=== PATIENT | female | born 1965 | race African-American/Black ===

== ENCOUNTER 2022-11-23 10:10 | Inpatient (IN) | payer OTHER, SELFPAY ==
[2022-11-23] VITALS (10 sets, daily range): BP systolic 112–130; BP diastolic 74–90; PULSE 84–105; RESP 16–20; TEMP 36.2–36.7; O2SAT 97–100; BMI 42.0
--- NOTE | ~2022-11-23 | XR_ITS ---
EXAMINATION: XR chest 2V DATE: 11/23/2022 11:36 INDICATION: Chest pain. Shortness of breath. TECHNIQUE: Frontal and lateral views of the chest were obtained. COMPARISON: None. FINDINGS: Scott B lines are noted, consistent with mild pulmonary edema. No pleural effusion or pneu mothorax. Cardiomegaly is noted. IMPRESSION: 1. Mild pulmonary edema. 2. Cardiomegaly. Reviewed, dictated and finalized at location A.
--- NOTE | ~2022-11-23 | NM_ITS ---
EXAMINATION: NM corazon stress w perfusion DATE: 11/26/2022 11:07 INDICATION: Congestive heart failure and cardiomyopathy. Preoperative evaluation. TECHNIQUE: Rest images were obtained following intravenous administration of 10.6 mCi Tc99m tetrofosm in (Myoview). The patient was infused intravenously with Lexiscan (Regadenoson). Then, 34.8 mCi Tc99m tetrofosmin (Myoview) was administered intravenously, and stress images were obtained in supine and subsequently in prone positions. Data was reconstructed into short axis and horizontal and vertical l pratik axis SPECT images. Gated SPECT images were also obtained. COMPARISON: None. FINDINGS: There is a small mild fixed perfusion defect involving the apical, apical anterior and apic al septal segments. There is decreased activity along the inferior wall which is more prominent on th e rest than the stress images and which nearly normalizes on all but the mid inferior segments with p tuan imaging and would favor diaphragmatic attenuation artifact over infarct. No reversible ischemia. There is prominent left ventricular enlargement with calculated end-diastolic volume of 300 mL. The re is global hypokinesis with akinesis at the anteroapical segment. This results in a moderate to sev erely decreased left ventricular ejection fraction of 18%. IMPRESSION: 1. Moderate-sized mild fixed infarct at the apical, apical anterior and apical septal segments. No re versible ischemia. 2. Perfusion defect along the inferior wall worse on the rest and stress images and which nearly norm alizes with prone imaging favoring diaphragmatic attenuation artifact over small mild infarct at the mid inferior segment. 2. Marked left ventricular enlargement with moderate to severely decreased left ventricular ejection fraction measuring 18%. Reviewed, dictated and finalized at location A. IMPRESSION: 1. Moderate-sized mild fixed infarct at the apical, apical anterior and apical septal segments. No reversible ischemia. 2. Perfusion defect along the inferior wall worse on the rest and stress images and which nearly normalizes with prone imaging favoring diaphragmatic attenuat ion artifact over small mild infarct at the mid inferior segment. 2. Marked left ventricular enlargement with moderate to severely decreased left ventricular ejection fraction measuring 18%.
--- NOTE | ~2022-11-23 | MR_ITS ---
EXAMINATION: MR MRCP wo/w con/w 3D wo ind DATE: 11/24/2022 07:16 INDICATION: Right upper quadrant abdominal pain. TECHNIQUE: Magnetic resonance imaging (MRI) of the abdomen was performed without and with 20 mL Multi Eugenie intravenous contrast. Sequences included coronal T2-weighted FS FSE, coronal T2-weighted FSE, a xial T1-weighted LAVA, coronal FS FIESTA, axial dual-echo T1-weighted SPGR, coronal lava-FLEX, sagitt al T2-weighted FSE, axial T2-weighted FSE, and axial DWI. Thick-slab T2-weighted FSE images were obta ined for magnetic resonance cholangiopancreatography (MRCP). Maximum intensity projection 3-D reconst ructions of the volumetric data were created by the technologist. Postcontrast sequences included cor onal LAVA-flex and time course of axial T1-weighted LAVA. COMPARISON: Ultrasound 11/23/2022 FINDINGS: ABDOMEN MRI: Cardiomegaly is noted. No pericardial effusion. The liver and spleen are normal. The gal lbladder is normal in size and contains a gallstone. Gallbladder wall thickening is noted. The pancre as, adrenal glands, and kidneys are normal. There are no dilated loops of bowel. There is edema of th e intra-abdominal fat. There is mild bilateral hilar lymphadenopathy. ABDOMEN MRCP: The common duct is normal and measures 4 mm. No choledocholithiasis. IMPRESSION: 1. Cholelithiasis. Gallbladder wall thickening is likely secondary to interstitial edema. No gallblad jessica distention to suggest acute cholecystitis. 2. Cardiomegaly. 3. Mild bilateral hilar lymphadenopathy, likely reactive. Reviewed, dictated and finalized at location A. IMPRESSION: 1. Cholelithiasis. Gallbladder wall thickening is likely secondary to interstit ial edema. No gallbladder distention to suggest acute cholecystitis. 2. Cardiomegaly. 3. Mild bilateral hilar lymphadenopathy, likely reactive.
--- NOTE | ~2022-11-23 | US_ITS ---
EXAMINATION: US right upper quadrant DATE: 11/23/2022 12:18 INDICATION: Right upper quadrant pain TECHNIQUE: Multiple grayscale and Doppler ultrasound images of the abdomen were obtained. COMPARISON: None available FINDINGS: Bowel gas obscures visualization of the pancreas. The visualized portions of the pancreas a re unremarkable. The liver is normal with normal echogenicity and echotexture. No surface nodularity. Normal hepatopetal flow in the main portal vein. A stone is present in the nondistended gallbladder. No gallbladder wall thickening or pericholecystic fluid are identified. The normal common bile duct measures 3 mm. There was no sonographic Rubi sign. IMPRESSION: 1. Cholelithiasis without additional findings of cholecystitis. Reviewed, dictated and finalized at location B.
--- NOTE | 2022-11-23 10:13 | ECG_ITS ---
Measurements Intervals [place] Rate: 103 P: 65 AK: 161 QRS: -48 QRSD: 147 T: 121 QT: 403 QTc: 528 Interpretive Statements SINUS TACHYCARDIA WITH FREQUENT VENTRICULAR PREMATURE COMPLEXES WITH OCCASIONAL SUPRAVENTRICULAR PREMATURE COMPLEXES MARKED LEFT AXIS DEVIATION [QRS AXIS < -30] LEFT BUNDLE BRANCH BLOCK [120+ ms QRS DURATION, 80+ ms Q/S IN V1/V2, 85+ ms R IN I/aVL/V5/V6] ABNORMAL ECG NO PREVIOUS ECG AVAILABLE FOR COMPARISON Electronically Signed On 11-23-2022 11:56:59 CDT by Karlos Domingo M.D.
[2022-11-23] MEDS: ASPIRIN 81 MG CHEWABLE TABLET 324 MG PO (11:02)
[2022-11-23 11:13] LABS: Basophils Absolute Auto 0.1 K/mm3 (0.0-0.1); Basophils Percent Auto 1.3 % (0.2-1.2); Eosinophils Percent Auto 0.6 % (0-4.4); Hematocrit 36.9 % (37.0-47.0); Hemoglobin 11.2 g/dL (12.0-15.0); Immature Granulocyte Absolute 0.01 K/mm3 (0.00-0.031); Immature Granulocyte Percent A 0.2 % (0-0.5); Lymphocytes Absolute Auto 1.35 K/mm3 (0.9-3.2); Lymphocytes Percent Auto 29.2 % (18.3-44.2); Mean Corpuscular HGB Conc 30.4 g/dl (32-36); Mean Corpuscular Hemoglobin 28.6 pg (26-34); Mean Corpuscular Volume 94.4 fl (80-100); Mean Platelet Volume 10.5 fl (7.4-10.4); Monocytes Absolute Auto 0.5 K/mm3 (0.1-0.6); Monocytes Percent Auto 9.7 % (2.6-8.5); Neutrophils Absolute Auto 2.7 K/mm3 (1.3-6.7); Platelet Count Result 338 k/mm3 (150-375); Red Blood Count 3.91 M/mm3 (4.2-5.4); White Blood Count 4.6 K/mm3 (4.5-10.0)
[2022-11-23 11:24] LABS: INR 1.5; Prothrombin Time 17.7 Seconds (11.1-14.7)
[2022-11-23 11:26] LABS: Partial Thromboplastin Time 25.7 SECONDS (22.3-36.8)
[2022-11-23 11:59] LABS: Alanine Aminotransferase 271 U/L (6-35); Alkaline Phosphatase 162 U/L (38-126); Anion Gap 7 mmol/L (8-16); Aspartate Amino Transferase 201 U/L (14-36); Bilirubin,Total 1.7 mg/dL (0.2-1.3); Blood Urea Nitrogen 16 mg/dL (7-17); Calcium 9.1 mg/dL (8.4-10.2); Carbon Dioxide 32 mmol/L (22-30); Chloride 102 mmol/L (98-107); Estimated CRCL calculation 45 ml/min; Estimated Glomerular Filt Rate 40; Glucose 109 mg/dL (65-110); Lipase 110 U/L (23-300); Potassium 3.4 mmol/L (3.4-5.0); Sodium 141 mmol/L (137-145)
[2022-11-23 12:10] LABS: Troponin I 0.016 ng/mL (0.000-0.034)
[2022-11-23 12:18] LABS: NT Pro B Type Natriuretic Pept 17700 pg/mL (19.9-100)
--- NOTE | 2022-11-23 12:37 | ED.GENADULT ---
HPI - General Adult General Chief complaint: Chest Pain Stated complaint: AMA from [facility] - SOB/CP, r/o blood clot Time Seen by Provider: 11/23/22 10:31 History of Present Illness HPI narrative: Patient is a 57-year-old female who presents to the ER with epigastric and chest pain. Intermittent over the last several days. Was seen at [facility] and had repeat troponin testing for heart issues. She was then being admitted to rule out a PE by VQ scan but it took too long to get a bed so she left AGAINST MEDICAL ADVICE. Pain is worsened with eating as opposed to exertion. Associate with some nausea. No pain with deep breath. She does have some mild shortness of breath and has history of heart failure. 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 She reports she has had a cardiac cath in the past that showed she is free of disease. Suspect nonischemic cardiomyopathy from what she says. Related Data Home Medications Medication Instructions Recorded Confirmed blood sugar diagnostic (OneTouch 11/23/22 11/23/22 Ultra Test strips) brimonidine 0.15 % eye drops 1 drp DAILY 11/23/22 11/23/22 dorzolamide 2 % eye drops 1 drp EACH EYE DAILY 11/23/22 11/23/22 furosemide 20 mg tablet 20 mg PO DAILY 11/23/22 11/23/22 metformin 500 mg tablet,extended 500 mg PO BID 11/23/22 11/23/22 release 24 hr rosuvastatin 20 mg tablet 20 mg PO DAILY 11/23/22 11/23/22 sacubitril 49 mg-valsartan 51 mg tablet PO BID 11/23/22 tablet (Entresto) semaglutide 0.25 mg or 0.5 mg (2 1 mg subcut WEEKLY 11/23/22 11/23/22 mg/1.5 mL) subcutaneous pen injector (Ozempic) Allergies Allergy/AdvReac Type Severity Reaction Status Date / Time No Known Allergies Allergy Unknown Verified 01/23/09 06:52 nkfa Allergy Unknown Uncoded 01/23/03 12:40 Review of Systems Review of Systems: All systems reviewed & are unremarkable except as noted in HPI and below Constitutional: Constitutional: Denies chills, Denies fatigue and Denies fever(s) ENT: Denies nasal congestion and Denies sore throat Cardiovascular: Cardiovascular: Reports chest pain, Denies rapid heart rate and Denies radiating jaw, neck or arm pain Respiratory: Respiratory: Denies cough, Reports dyspnea and Denies wheezing Gastrointestinal: Gastrointestinal: Reports abdominal pain, Denies diarrhea, Reports nausea and Reports vomiting Genitourinary: Genitourinary: Denies hematuria, Denies nocturia and Denies dysuria PMFSH Past Medical History Medical History (Updated 11/23/22 @ 19:24 by Danis Poole MD) CHF (congestive heart failure), NYHA class I DM2 (diabetes mellitus, type 2) Glaucoma Hyperlipidemia Hypertension Surgical History Surgical History (Updated 11/23/22 @ 16:26 by Emeli Crocker NP) H/O dilation and curettage H/O: hysterectomy History of appendectomy Family History Family History Father Acute myocardial infarction Diabetes mellitus Mother Acute myocardial infarction Diabetes mellitus Sibling Diabetes mellitus Social History Social History (Updated 11/23/22 @ 16:29 by Emeli Crocker NP) Social History: She lives with her significant other and has 1 son. She occasionally drinks alcohol such as a Brenda or a glass a wine. She works at the [employer]. Lifelong nonsmoker but is exposed to secondhand smoke. Code status full code Smoking status: Never smoker Alcohol intake: current Drinks per week: 1 Substance use: never Substance use type: does not use Lack of Transportation: No Lack of Food: Never True Current Housing: I Have Housing Concerned About Future Housing: No Difficulty Paying Gas/Electric Bills: No Difficulty Paying for Meds: No Currently Unemployed: No Education: Associate Degree Difficulty w/ Childcare or Family Care: No Spiritual care concerns: No Exam Narrative: GENERAL: Well-appearing,
--- NOTE | 2022-11-23 13:24 | PM.IMHP ---
H&P: HPI History of Present Illness Date/Time: 11/23/22 13:24 Chief Complaint: Chest pain Narrative: This is a 57-year-old female patient who has a history of congestive heart failure, diabetes, and hyperlipidemia. The patient had been seen at [facility] but signed out AMA. H&H is noted to be 11.2 and 36.9. Her creatinine is 1.6 and her GFR is 40. Her total bilirubin is 1.7, AST 201, ALT is 271 and alkaline phosphatase 162. [place] [address]. The patient has been having epigastric discomfort and has had nausea vomiting as well. The patient stated that she has not taken any of her diuretics for 2 days. Chest x-ray was read as mild pulmonary edema. Cardiomegaly. Upper quadrant ultrasound was read as cholelithiasis without additional findings of cholecystitis. The patient had been given an aspirin in the emergency room. I ordered IV Lasix for the patient she has not had a yet today. GI has been consulted. The patient is being admitted to inpatient status on the date of service of 11/23/2022. Review of Systems Review of Systems: All systems reviewed & are unremarkable except as noted in HPI and below Constitutional: Constitutional: Reports as per HPI and Reports no additional constitutional complaints Eyes: Eyes: Reports as per HPI and Reports no additional eye complaints ENT: Reports system reviewed and no additional complaints, except as documented and Reports Normal hearing present Cardiovascular: Cardiovascular: Reports no additional cardiovascular complaints Respiratory: Respiratory: Reports no additional respiratory complaints and Reports no additional respiratory complaints Gastrointestinal: Gastrointestinal: Reports as per HPI and Reports no additional gastrointestinal complaints Musculoskeletal: Musculoskeletal: Reports no additional musculoskeletal complaints Integumentary/Breasts: Skin/Breast: Reports system reviewed and no additional complaints, except as docu and Reports as per HPI Neurologic: Reports system reviewed and no additional complaints, except as documented, Reports as per HPI and Reports Normal hearing present Psychiatric: Psychiatric: Reports no additional psychiatric complaints and Reports as per HPI Endocrine: Endocrine: Reports no additional endocrine complaints Hematologic/Lymphatic: Hematologic/Lymphatic: Reports no additional hematologic/lymphatic complaints Allergic/Immunologic: Allergic/Immunologic: Reports no additional allergic/immunologic complaints [facility] Past Medical History Medical History (Updated 11/23/22 @ 16:45 by Emeli Crocker NP) CHF (congestive heart failure), NYHA class I DM2 (diabetes mellitus, type 2) Glaucoma Hyperlipidemia Hypertension Surgical History Surgical History (Updated 11/23/22 @ 16:26 by Emeli Crocker NP) H/O dilation and curettage H/O: hysterectomy History of appendectomy Family History Family History Father Acute myocardial infarction Diabetes mellitus Mother Acute myocardial infarction Diabetes mellitus Sibling Diabetes mellitus Social History Social History (Updated 11/23/22 @ 16:29 by Emeli Crocker NP) Social History: She lives with her significant other and has 1 son. She occasionally drinks alcohol such as a Brenda or a glass a wine. She works at the [employer]. Lifelong nonsmoker but is exposed to secondhand smoke. Code status full code Smoking status: Never smoker Alcohol intake: current Drinks per week: 1 Substance use: never Substance use type: does not use Lack of Transportation: No Lack of Food: Never True Current Housing: I Have Housing Concerned About Future Housing: No Difficulty Paying Gas/Electric Bills: No Difficulty Paying for Meds: No Currently Unemployed: No Education: Associate Degree Difficulty w/ Childcare or Family Care: No Spiritual care concerns: No Meds H
[2022-11-23] MEDS: FUROSEMIDE INJ 40 MG/4 ML VIAL 20 MG IV PUSH (13:50)
[2022-11-23 17:16] LABS: Troponin I 0.017 ng/mL (0.000-0.034)
[2022-11-23 18:38] LABS: Glucose Point of Care 91 mg/dl (65-105)
[2022-11-23] MEDS: SODIUM CHLORIDE 0.9% IV 1,000 ML 125 ML IV CONT (18:39)
[2022-11-23 21:14] LABS: Troponin I 0.019 ng/mL (0.000-0.034)
--- NOTE | 2022-11-24 | ECHO_ITS ---
Patient Info Name: Jessica Ojeda Age: 57 years : 1965 Gender: Female Ht: 66 in Wt: 260 lbs BSA: 2.40 m2 HR: 93 bpm BP: 124 / 86 mmHg Heart Rhythm: Sinus Rhythm Technical Quality: Fair Exam Date: 11/24/2022 3:16 PM Exam Location: [facility] Patient Status: Outpatient Admit Date: 11/23/2022 Staff Ordering Physician: Umair Liao Salesperson Meats: Melani Torres RDCS Attending Provider: Zechariah Mariscal MD Referring Physician: Keshawn TENORIO; Exam Type: CA echo doppler color flow Study Info Indications - pre-op clearance Complete two-dimensional, color flow and Doppler transthoracic echocardiogram is performed. Summary 1. Complete two-dimensional, color flow and Doppler transthoracic echocardiogram is performed. 2. Left ventricular chamber dimension is severely enlarged. 3. Left ventricular systolic function is severely reduced, estimated at 25-30%. 4. There is severely increased left ventricular wall thickness. 5. The left ventricular diastolic function is abnormal. 6. The inferior wall, inferoseptal wall, and mid inferolateral wall are akinetic. 7. The anterior wall, anterolateral wall, anteroseptal wall, apical cap, and basal inferolateral wall are hypokinetic. 8. Left atrial chamber dimension is moderately enlarged. 9. Right atrial chamber dimension is mildly enlarged. 10. The mitral valve has thickened leaflets and calcified annulus. 11. There is moderate mitral valve regurgitation. 12. There is moderate tricuspid valve regurgitation. 13. Severe pulmonary hypertension, estimated pulmonary arterial systolic pressure is 62 mmHg. 14. There is mild to moderate pulmonic regurgitation. Left Ventricle Left ventricular chamber dimension is severely enlarged. Left ventricular systolic function is severely reduced, estimated at 25-30%. There is severely increased left ventricular wall thickness. The left ventricular diastolic function is abnormal. The inferior wall, inferoseptal wall, and mid inferolateral wall are akinetic. The anterior wall, anterolateral wall, anteroseptal wall, apical cap, and basal inferolateral wall are hypokinetic. Right Ventricle Right ventricular chamber dimension is normal. Right ventricular systolic function is reduced. Left Atria Left atrial chamber dimension is moderately enlarged. Right Atria Right atrial chamber dimension is mildly enlarged. Atrial Septum Intact interatrial septum visualized by color flow imaging. Aortic Valve The aortic valve is trileaflet. There is mild aortic valve sclerosis. There is no aortic valve stenosis. There is trace aortic valve regurgitation. Pulmonic Valve The pulmonic valve is normal. There is no pulmonic valve stenosis. There is mild to moderate pulmonic regurgitation. Mitral Valve The mitral valve has thickened leaflets and calcified annulus. There is no mitral valve stenosis. There is moderate mitral valve regurgitation. Tricuspid Valve The tricuspid valve leaflets are normal. There is no significant tricuspid valve stenosis. There is moderate tricuspid valve regurgitation. Severe pulmonary hypertension, estimated pulmonary arterial systolic pressure is 62 mmHg. Pericardium/Pleural The pericardium appears normal. There is trivial pericardial effusion. Inferior Vena Cava Normal inferior vena cava with >50% collapse upon inspiration consistent with elevated right atrial pressure, 10 mmHg. Aorta The aortic root size at the sinus of Valsalva is normal. The prox ascending aorta size is normal. Left Ventricular Outflow Tract ------
[2022-11-24 00:04] LABS: Glucose Point of Care 86 mg/dl (65-105)
[2022-11-24] MEDS: SODIUM CHLORIDE 0.9% IV 1,000 ML 125 ML IV CONT (04:27)
[2022-11-24 06:21] LABS: Glucose Point of Care 79 mg/dl (65-105)
[2022-11-24] MEDS: FUROSEMIDE INJ 40 MG/4 ML VIAL 20 MG IV PUSH (08:27)
[2022-11-24 08:30] LABS: Basophils Absolute Auto 0.1 K/mm3 (0.0-0.1); Basophils Percent Auto 1.5 % (0.2-1.2); Eosinophils Absolute Auto 0.1 K/mm3 (0-0.3); Eosinophils Percent Auto 1.5 % (0-4.4); Hematocrit 38.1 % (37.0-47.0); Hemoglobin 11.6 g/dL (12.0-15.0); Immature Granulocyte Absolute 0.01 K/mm3 (0.00-0.031); Immature Granulocyte Percent A 0.2 % (0-0.5); Lymphocytes Absolute Auto 1.32 K/mm3 (0.9-3.2); Lymphocytes Percent Auto 24.8 % (18.3-44.2); Mean Corpuscular HGB Conc 30.4 g/dl (32-36); Mean Corpuscular Hemoglobin 28.5 pg (26-34); Mean Corpuscular Volume 93.6 fl (80-100); Mean Platelet Volume 9.6 fl (7.4-10.4); Monocytes Absolute Auto 0.5 K/mm3 (0.1-0.6); Monocytes Percent Auto 9.4 % (2.6-8.5); Neutrophils Absolute Auto 3.3 K/mm3 (1.3-6.7); Neutrophils Percent Auto 62.6 % (45.5-73.1); Platelet Count Result 283 k/mm3 (150-375); Red Blood Count 4.07 M/mm3 (4.2-5.4); White Blood Count 5.3 K/mm3 (4.5-10.0)
[2022-11-24] MEDS: BRIMONIDINE TARTRATE 0.15% 5 ML OPHTH SOLN 1 DROP EACH EYE (08:34)
[2022-11-24] MEDS: DORZOLAMIDE HCL 2% OPHTH DROPS 1 DROP EACH EYE (08:34)
[2022-11-24 08:39] LABS: Ammonia < 9 umol/L (9-30)
[2022-11-24 08:41] LABS: Alanine Aminotransferase 256 U/L (6-35); Alkaline Phosphatase 161 U/L (38-126); Anion Gap 14 mmol/L (8-16); Aspartate Amino Transferase 159 U/L (14-36); Bilirubin,Total 2.2 mg/dL (0.2-1.3); Blood Urea Nitrogen 17 mg/dL (7-17); Carbon Dioxide 24 mmol/L (22-30); Chloride 104 mmol/L (98-107); Estimated CRCL calculation 48 ml/min; Estimated Glomerular Filt Rate 43; Glucose 83 mg/dL (65-110); Lactic Acid Reflex 1.6 mmol/L (0.7-2.0); Lipase 111 U/L (23-300); Magnesium 2.5 mg/dL (1.6-2.3); Potassium 3.6 mmol/L (3.4-5.0); Sodium 142 mmol/L (137-145)
[2022-11-24 08:58] LABS: Hemoglobin A1C 5.8 % (<5.7)
[2022-11-24 09:34] LABS: Hepatitis B Surface Antigen Negative (Negative)
[2022-11-24 09:36] VITALS: PULSE 101; O2SAT 100
[2022-11-24 09:39] LABS: HAV RESULT Negative (Negative); Hepatitis B Core IgM Result Negative (Negative)
[2022-11-24 09:51] LABS: Hepatitis C Virus Antibody Negative (Negative)
--- NOTE | 2022-11-24 11:15 | P.PNIM_ITS ---
Progress Note: A&P Assessment and Plan (1) Cholelithiasis: Code(s): K80.20 - Calculus of gallbladder without cholecystitis without obstruction Status: Acute Assessment and Plan: * presented the ED with abdominal pain, nausea, vomiting. * Right upper quadrant ultrasound showed cholelithiasis without additional findings of cholecystitis * MRCP found cholelithiasis wall thickening, interstitial edema * GI consulted thank you for your help * consulted General surgery for further evaluation * liver enzymes elevated, T bili at 2.2 * continue analgesics * NPO for now advanced as indicated by GI and surgery * antiemetics (2) Elevated liver enzymes: Code(s): R74.8 - Abnormal levels of other serum enzymes Status: Acute Assessment and Plan: * AST and ALT elevated, 201/271 at admission * currently AST/ ALT 159/256 * hep panel negative * MRCP did not indicate any stones * continue trend labs * most likely related to cholelithiasis (3) DM2 (diabetes mellitus, type 2): Code(s): E11.9 - Type 2 diabetes mellitus without complications Status: Acute Assessment and Plan: * Glucose 88 * Hold metformin and Ozempic for now * A1c is 5.8 * sliding scale insulin * hypoglycemia protocol * trend glucose * adjust therapy as indicated (4) CHF (congestive heart failure), NYHA class I: Code(s): I50.9 - Heart failure, unspecified Status: Acute Assessment and Plan: * patient has a known CHF * most likely chronic diastolic heart failure without exacerbation * Hold Entresto for now since her creatinine is 1.6. * IV Lasix 40 [place] b[place] [address] * Chest x-ray shows some mild pulmonary edema * daily weights * strict I&Os (5) Glaucoma: Code(s): H40.9 - Unspecified glaucoma Status: Acute Assessment and Plan: * Continue with home eye drops (6) Hyperlipidemia: Code(s): E78.5 - Hyperlipidemia, unspecified Status: Acute Assessment and Plan: * Hold rosuvastatin at this time * trend LFTs * restart as indicated (7) Hypertension: Code(s): I10 - Essential (primary) hypertension Status: Acute Assessment and Plan: * current blood pressure 112/74 * no medications at home * seems controlled * continue to trend blood pressure * adjust therapy as indicated (8) Anemia: Code(s): D64.9 - Anemia, unspecified Status: Acute Assessment and Plan: * H&H is 11.2 and 36.9. upon admission * currently 11.6/38.1 * chronic. * continue to trend * no indication for supplementation at this time * if worsening consider anemia labs (9) Acute renal failure: Code(s): N17.9 - Acute kidney failure, unspecified Status: Acute Assessment and Plan: * Her creatinine is 1.6 with a GFR of 40. * Most likely pre renal azotemia due to dehydration. * nausea and vomiting for 2 days. * Continue with IV fluids * trend labs * avoid nephrotoxic medications * if no notable improvement consider urine labs Plan Reviewed case with General Surgery Time Spent With Patient Time: 51 minutes Time with patient: Jose
--- NOTE | 2022-11-24 11:15 | PM.IMPN ---
Progress Note: A&P Assessment and Plan (1) Cholelithiasis: Code(s): K80.20 - Calculus of gallbladder without cholecystitis without obstruction Status: Acute Assessment and Plan: presented the ED with abdominal pain, nausea, vomiting. Right upper quadrant ultrasound showed cholelithiasis without additional findings of cholecystitis MRCP found cholelithiasis wall thickening, interstitial edema GI consulted thank you for your help consulted General surgery for further evaluation liver enzymes elevated, T bili at 2.2 continue analgesics NPO for now advanced as indicated by GI and surgery antiemetics (2) Elevated liver enzymes: Code(s): R74.8 - Abnormal levels of other serum enzymes Status: Acute Assessment and Plan: AST and ALT elevated, 201/271 at admission currently AST/ ALT 159/256 hep panel negative MRCP did not indicate any stones continue trend labs most likely related to cholelithiasis (3) DM2 (diabetes mellitus, type 2): Code(s): E11.9 - Type 2 diabetes mellitus without complications Status: Acute Assessment and Plan: Glucose 88 Hold metformin and Ozempic for now A1c is 5.8 sliding scale insulin hypoglycemia protocol trend glucose adjust therapy as indicated (4) CHF (congestive heart failure), NYHA class I: Code(s): I50.9 - Heart failure, unspecified Status: Acute Assessment and Plan: patient has a known CHF most likely chronic diastolic heart failure without exacerbation Hold Entresto for now since her creatinine is 1.6. IV [place]ix [place] [address] Chest x-ray shows some mild pulmonary edema daily weights strict I&Os (5) Glaucoma: Code(s): H40.9 - Unspecified glaucoma Status: Acute Assessment and Plan: Continue with home eye drops (6) Hyperlipidemia: Code(s): E78.5 - Hyperlipidemia, unspecified Status: Acute Assessment and Plan: Hold rosuvastatin at this time trend LFTs restart as indicated (7) Hypertension: Code(s): I10 - Essential (primary) hypertension Status: Acute Assessment and Plan: current blood pressure 112/74 no medications at home seems controlled continue to trend blood pressure adjust therapy as indicated (8) Anemia: Code(s): D64.9 - Anemia, unspecified Status: Acute Assessment and Plan: H&H is 11.2 and 36.9. upon admission currently 11.6/38.1 chronic. continue to trend no indication for supplementation at this time if worsening consider anemia labs (9) Acute renal failure: Code(s): N17.9 - Acute kidney failure, unspecified Status: Acute Assessment and Plan: Her creatinine is 1.6 with a GFR of 40. Most likely pre renal azotemia due to dehydration. nausea and vomiting for 2 days. Continue with IV fluids trend labs avoid nephrotoxic medications if no notable improvement consider urine labs Plan Reviewed case with General Surgery Time Spent With Patient Time: 51 minutes Time with patient: Greater than 35 minutes Subjective Date/time seen: 11/24/221114 Interval history: 11/24/221114 patient stated that she was not as bad as yesterday. She is still having some pain in her right upper quadrant that does go to her back and into the epigastric region. She denies any current chest pain, shortness a breath, nausea, vomiting, diarrhea constipation. She did state that she does not feel weak she feels pretty average. She is really wanting something to moisten her mouth like an ice chips. Liver enzymes are elevated again today with a bilirubin 2.2. MRCP did not show any stones but did show some gallbladder wall thickening and edema. Will consult General surgery for further evaluation.
[2022-11-24 11:47] LABS: Glucose Point of Care 88 mg/dl (65-105)
--- NOTE | 2022-11-24 13:20 | PM.CNGS ---
Assessment and Plan Assessment and plan (1) Cholelithiasis: Code(s): K80.20 - Calculus of gallbladder without cholecystitis without obstruction Status: Acute Assessment and Plan: Patient presented with epigastric and RUQ abdominal pain for 3 days. LFTs elevated on admission with slight increase in total bilirubin to 2.2 today. RUQ US showed cholelithiasis without other findings to suggest cholecystitis. MRCP today showed a gallstone in the gallbladder with mild wall thickening that could be related to interstitial edema, but no evidence of a common duct stone or biliary dilatation. Her abdominal pain could be related to gallstone disease or potentially a common duct stone that passed or was missed on MRCP. Regardless, her symptoms have progressively worsened recently and she has not been able to tolerate a diet for the past week. It is unlikely she would be successful with nonoperative management/dietary modifications if this is all related to her gallstones. We would recommend to repeat her labs tomorrow morning. If her total bilirubin goes up again, then may need to consider further evaluation with ERCP. If this remains the same or goes down, then we could potentially proceed with a laparoscopic cholecystectomy by Dr. Landers. She also has other co-morbidities that increases her risks of surgery, and she would need to be medically optimized prior to proceeding. I discussed this with the Hospitalist and they plan on ordering an echocardiogram for pre-operative work-up. She is also successfully being diuresed. Will repeat labs tomorrow and decide on timing of surgery accordingly. Will start a clear liquid diet this afternoon. (2) Transaminitis: Code(s): R74.01 - Elevation of levels of liver transaminase levels Status: Acute Assessment and Plan: LFTs elevated with total bilirubin up to 2.2 today from 1.7. Hepatitis panel negative. She has evidence of a gallstone in her gallbladder with some mild wall thickening on MRCP that could be related to interstitial edema versus cholecystitis. Her elevated liver enzymes could be related to cholecystitis or a common duct stone. MRCP negative today for choledocholithiasis. If total bilirubin goes up further, then may need to consider further evaluation with ERCP. GI following. (3) RUQ pain: Code(s): R10.11 - Right upper quadrant pain Status: Acute (4) Acute renal failure: Code(s): N17.9 - Acute kidney failure, unspecified Status: Acute Assessment and Plan: Creatinine 1.6 on admission, no labs to compare to in the past to assess for chronic kidney disease. Creatinine down to 1.5 today. (5) DM2 (diabetes mellitus, type 2): Code(s): E11.9 - Type 2 diabetes mellitus without complications Status: Acute Assessment and Plan: Controlled with hemoglobin A1C 5.8. Management per Hospitalist. (6) CHF (congestive heart failure), NYHA class I: Code(s): I50.9 - Heart failure, unspecified Status: Acute Assessment and Plan: BNP elevated on admission with pulmonary edema on chest x-ray. She has been receiving Lasix IV for diuresis and seems to be diuresing well. No cardiac workup available in our system. She reportedly had an echocardiogram done about a year ago at [place] but cannot recall the details. (7) Hypertension: Code(s): I10 - Essential (primary) hypertension Status: Acute Plan I have discussed the patient's case and plan of care with Dr. Landers. Thank you for allowing us to see the patient in consultation and we will continue to follow along with you. History of Present Illness Consult details Consult date: 11/24/22 Reason for consult: gallstones Requesting physician: Umair Liao, MICHELA Narrative: This is a 57-year-old woman with a history of type 2 diabetes mellitus, hypertension, CHF, and hyperlipidemia, who we have been asked to see for cholelithiasis. She began having epigastric abdominal river
--- NOTE | 2022-11-24 13:39 | WPDGICN ---
Assessment and Plan Assessment and plan (1) RUQ pain: Code(s): R10.11 - Right upper quadrant pain Status: Acute Assessment and Plan: pain probably GB related, MRCP with normal bile duct surgery to see patient, most likely will need lap jenny (2) Cholelithiasis: Code(s): K80.20 - Calculus of gallbladder without cholecystitis without obstruction Status: Acute Assessment and Plan: surgery to evaluate no need of ercp (3) Elevated liver enzymes: Code(s): R74.8 - Abnormal levels of other serum enzymes Status: Acute Assessment and Plan: probably related to GB monitor denies alcohol use (4) DM2 (diabetes mellitus, type 2): Code(s): E11.9 - Type 2 diabetes mellitus without complications Status: Acute (5) Colon cancer screening: Code(s): Z12.11 - Encounter for screening for malignant neoplasm of colon Status: Acute Assessment and Plan: never had colonoscopy, she had stool test in the past encourage to call office to get colonoscopy set up as outpatient GI Consult Note Consult date/time: 11/24/22 13:39 Reason for consult: ruq pain, elevated liver enzymes HPI: Jessica Ojeda is a 57 year old female with history of congestive heart failure, diabetes, and hyperlipidemia.?She started with 2 weeks of ruq pain with radiation to her back, worse after eating fatty meals and since trying to have more smoothies rather than regular food. She went to [facility] but was not happy with medical service and left. Also had some nausea, denies liver disease or previous GB problem. She denies previous scopes. Blood work showed elevated liver enzymes total bilirubin is 1.7, AST 201, ALT is 271 and alkaline phosphatase 162.? [place] [id number].?Chest x-ray was read as mild pulmonary edema.? Cardiomegaly.? Upper quadrant ultrasound was read as cholelithiasis without additional findings of cholecystitis.?MRCP showed cholelithiasis, normal bile duct without stones. She is feeling much better and pain is almost gone. Review of Systems Constitutional: Constitutional: Denies chills Eyes: Eyes: Denies blurry vision ENT: Reports Normal hearing present Cardiovascular: Cardiovascular: Reports chest pain Respiratory: Respiratory: Denies cough Gastrointestinal: Gastrointestinal: Reports abdominal pain, Reports nausea and Reports vomiting Genitourinary: Genitourinary: Denies hematuria Musculoskeletal: Musculoskeletal: Denies arthralgias Integumentary/Breasts: Skin/Breast: Denies erythema Neurologic: Denies Abnormal speech present Psychiatric: Psychiatric: Denies confusion [facility] Past Medical History Medical History (Updated 11/24/22 @ 13:44 by Arvind Hartmann MD) CHF (congestive heart failure), NYHA class I Colon cancer screening DM2 (diabetes mellitus, type 2) Glaucoma Hyperlipidemia Hypertension RUQ pain Surgical History Surgical History (Updated 11/23/22 @ 16:26 by Emeli Crocker NP) H/O dilation and curettage H/O: hysterectomy History of appendectomy Family History Family History Father Acute myocardial infarction Diabetes mellitus Mother Acute myocardial infarction Diabetes mellitus Sibling Diabetes mellitus Social History Social History (Updated 11/23/22 @ 16:29 by Emeli Crocker NP) Social History: She lives with her significant other and has 1 son. She occasionally drinks alcohol such as a Brenda or a glass a wine. She works at the [employer]. Lifelong nonsmoker but is exposed to secondhand smoke. Code status full code Smoking status: Never smoker Alcohol intake: current Drinks per week: 1 Substance use: never Substance use type: does not use Lack of Transportation: No Lack of Food: Never True Current Housing: I Have Housing Concerned About Future Housing: No Difficulty Paying Gas/Electric
[2022-11-24 13:53] VITALS: BP 124/86; PULSE 93; RESP 18; TEMP 36.1; O2SAT 100
--- NOTE | 2022-11-24 16:35 | PC.NURSE ---
Pt IV infiltrated. I attempted twice and another nurse attempted twice to complete the Echo but was unable to get access. Will pass along in report and leave a message for Megha.
[2022-11-24 16:53] LABS: Glucose Point of Care 69 mg/dl (65-105)
[2022-11-24] MEDS: FUROSEMIDE INJ 40 MG/4 ML VIAL IV PUSH (18:04)
[2022-11-24 22:00] VITALS: BP 116/69; PULSE 88; RESP 20; TEMP 35.9; O2SAT 99
[2022-11-25 00:17] LABS: Glucose Point of Care 95 mg/dl (65-105)
[2022-11-25 06:00] VITALS: BP 115/63; PULSE 88; RESP 16; TEMP 36.2; O2SAT 100
[2022-11-25 06:10] LABS: Basophils Absolute Auto 0.1 K/mm3 (0.0-0.1); Basophils Percent Auto 1.7 % (0.2-1.2); Eosinophils Absolute Auto 0.2 K/mm3 (0-0.3); Eosinophils Percent Auto 3.4 % (0-4.4); Hematocrit 33.7 % (37.0-47.0); Hemoglobin 10.6 g/dL (12.0-15.0); Immature Granulocyte Absolute 0.01 K/mm3 (0.00-0.031); Immature Granulocyte Percent A 0.2 % (0-0.5); Lymphocytes Absolute Auto 1.63 K/mm3 (0.9-3.2); Mean Corpuscular HGB Conc 31.5 g/dl (32-36); Mean Corpuscular Hemoglobin 28.4 pg (26-34); Mean Corpuscular Volume 90.3 fl (80-100); Mean Platelet Volume 9.4 fl (7.4-10.4); Monocytes Absolute Auto 0.6 K/mm3 (0.1-0.6); Monocytes Percent Auto 12.4 % (2.6-8.5); Neutrophils Absolute Auto 2.2 K/mm3 (1.3-6.7); Neutrophils Percent Auto 47.3 % (45.5-73.1); Platelet Count Result 260 k/mm3 (150-375); Red Blood Count 3.73 M/mm3 (4.2-5.4); Red Cell Distribution Width 17.7 % (11.5-14.5); White Blood Count 4.7 K/mm3 (4.5-10.0)
[2022-11-25 06:16] LABS: Glucose Point of Care 94 mg/dl (65-105)
[2022-11-25 06:17] LABS: Alanine Aminotransferase 197 U/L (6-35); Albumin Level 3.5 g/dL (3.5-5.1); Alkaline Phosphatase 124 U/L (38-126); Anion Gap 8 mmol/L (8-16); Aspartate Amino Transferase 90 U/L (14-36); Blood Urea Nitrogen 17 mg/dL (7-17); Calcium 8.3 mg/dL (8.4-10.2); Carbon Dioxide 31 mmol/L (22-30); Chloride 103 mmol/L (98-107); Estimated CRCL calculation 52 ml/min; Estimated Glomerular Filt Rate 47; Glucose 91 mg/dL (65-110); Lipase 111 U/L (23-300); Magnesium 2.3 mg/dL (1.6-2.3); Sodium 142 mmol/L (137-145)
[2022-11-25] MEDS: FUROSEMIDE INJ 40 MG/4 ML VIAL IV PUSH ×2 (08:22→16:17)
[2022-11-25] MEDS: BRIMONIDINE TARTRATE 0.15% 5 ML OPHTH SOLN 1 DROP EACH EYE (08:22)
[2022-11-25] MEDS: DORZOLAMIDE HCL 2% OPHTH DROPS 1 DROP EACH EYE (08:22)
[2022-11-25] MEDS: POTASSIUM CHLORIDE 20 MEQ TABLET 40 MEQ PO (10:44)
--- NOTE | 2022-11-25 11:30 | PM.PNGS ---
Progress Note: A&P Assessment and Plan (1) Cholelithiasis: Code(s): K80.20 - Calculus of gallbladder without cholecystitis without obstruction Status: Acute Assessment and Plan: LFTs down today with total bilirubin down to 2.0. Plan to proceed with a laparoscopic cholecystectomy with intraoperative cholangiogram during this visit. Description of the procedure, risks, benefits, alternatives, and expected recovery were discussed with the patient. We discussed the risks of bile leak and bile duct injury, liver/bowel injury, bleeding, and infection. Also discussed the possibility of having to convert to an open procedure if necessary. She agrees to proceed with surgery. Echocardiogram reviewed, EF 25-30%. Discussed with Hospitalist who will be consulting Cardiology for pre-operative evaluation. Will allow a clear liquid diet today while awaiting Cardiology's recommendations. (2) Transaminitis: Code(s): R74.01 - Elevation of levels of liver transaminase levels Status: Acute Assessment and Plan: LFTs down today, total bilirubin down to 2.0. See plan above. (3) Acute renal failure: Code(s): N17.9 - Acute kidney failure, unspecified Status: Acute Assessment and Plan: Creatinine slowly trending down, IV fluids were stopped as she was getting diuresed, monitor labs, management per primary service (4) DM2 (diabetes mellitus, type 2): Code(s): E11.9 - Type 2 diabetes mellitus without complications Status: Acute (5) CHF (congestive heart failure), NYHA class I: Code(s): I50.9 - Heart failure, unspecified Status: Acute Plan I have discussed the patient's case and plan of care with Dr. Landers. Subjective Subjective Date/Time Seen: 11/25/22 11:30 Patient reports: no new complaints, feels better and afebrile Interval history: Patient feeling well today without any complaints. She tolerated clear liquids well last night but has been NPO this morning for the possibility of surgery. Denies any nausea, vomiting, or abdominal pain. Review of Systems Review of Systems: ROS unchanged Exam Const: General: comfortable and no acute distress Orientation/consciousness: patient oriented x3 GI: Inspection: non-distended GI Palp: Yes Soft to palpation, No Tenderness to palpation present (GI), No Guarding due to palpation present (GI) and No Rebound tenderness present Auscultation: normal bowel sounds Extrem: General: no edema Psych: Mental Status: mental status grossly normal Insight: Good insight present (Psych) Objective Data Vital Signs Vital Signs: Vital Signs - 24 hr 11/24/22 13:53 11/24/22 20:00 11/24/22 22:00 Temperature 97.0 F L 96.7 F L Pulse Rate 93 88 Respiratory Rate 18 20 Blood Pressure 124/86 116/69 Pulse Oximetry 100 99 Oxygen Delivery Room Air 11/25/22 06:00 Temperature 97.1 F L Pulse Rate 88 Respiratory Rate 16 Blood Pressure 115/63 Pulse Oximetry 100 Oxygen Delivery Intake/Output Intake/Output: Intake & Output 11/22/22 11/23/22 11/24/22 11/25/22 23:59 23:59 23:59 23:59 Intake Total 1821 300 Balance 1821 300 Meds/Results Medications: Active Medications Generic Name Dose Route Start Last Admin Trade Name Freq PRN Reason Stop Dose Admin Acetaminophen 650 mg 11/24/22 20:51 Acetaminophen 325 Mg Tablet PO Q6H PRN Mild Pain (1-3) or Fever Brimonidine Tartrate 1 drop 11/24/22 09:00 11/25/22 08:22 Brimonidine Tartrate 0.15% 5 Ml Ophth Soln EACH EYE 1 drop DAILY NEMESIO Administration Dextrose 12.5 gm 11/23/22 16:38 Dextrose 50% 25 Gm/50 Ml Syringe IV PUSH PRN PRN Hypoglycemia Protocol Dorzolamide HCl 1 drop 11/24/22 09:00 11/25/22 08:22 Dorzolamide Hcl 2% Ophth Drops EACH EYE 1 drop DAILY NEMESIO Administration Furosemide 40 mg 11/24/22 17:00 11/25/22 08:22 Furosemide Inj 40 Mg/4 Ml Vial IV PUSH 40 mg BID NEMESIO Administration
[2022-11-25 12:15] LABS: Glucose Point of Care 106 mg/dl (65-105)
--- NOTE | 2022-11-25 13:14 | WPDGIPROGNO ---
Progress Note: A&P Assessment and Plan (1) Cholelithiasis: Code(s): K80.20 - Calculus of gallbladder without cholecystitis without obstruction Status: Acute Assessment and Plan: surgery planning lap jenny but will be evaluated by cardiology given low EF no need of ercp she is comfortable with liquid diet will follow from afar, call if questions (2) RUQ pain: Code(s): R10.11 - Right upper quadrant pain Status: Acute (3) Transaminitis: Code(s): R74.01 - Elevation of levels of liver transaminase levels Status: Acute Assessment and Plan: trending down lap jenny (4) CHF (congestive heart failure), NYHA class I: Code(s): I50.9 - Heart failure, unspecified Status: Acute Subjective Date/time seen: 11/25/22 13:14 Interval history: doing ok as long as she is having liquid diet, no pain and she is comfortable Review of Systems Review of Systems: All systems reviewed & are unremarkable except as noted in HPI and below Exam Const: General: comfortable and no acute distress Orientation/consciousness: patient oriented x3 HENMT: Face/Nose/Sinus: Normal nares present Eyes: Sclera: sclerae normal Neck: Neck: supple Resp: Effort & Inspection: normal respiratory effort Cardio: Rate: regular rate GI: Inspection: non-distended GI Palp: Yes Soft to palpation, No Tenderness to palpation present (GI), No Guarding due to palpation present (GI) and No Rebound tenderness present Auscultation: normal bowel sounds Skin: General skin exam: normal color Extrem: General: no edema Psych: Mental Status: mental status grossly normal Insight: Good insight present (Psych) Objective Data Vital Signs Vital Signs: Vital Signs - 24 hr 11/24/22 13:53 11/24/22 20:00 11/24/22 22:00 Temperature 97.0 F L 96.7 F L Pulse Rate 93 88 Respiratory Rate 18 20 Blood Pressure 124/86 116/69 Pulse Oximetry 100 99 Oxygen Delivery Room Air 11/25/22 06:00 Temperature 97.1 F L Pulse Rate 88 Respiratory Rate 16 Blood Pressure 115/63 Pulse Oximetry 100 Oxygen Delivery Intake/Output Intake/Output: Intake & Output 11/22/22 11/23/22 11/24/22 11/25/22 23:59 23:59 23:59 23:59 Intake Total 1821 300 Balance 1821 300 Meds/Results Medications: Active Medications Generic Name Dose Route Start Last Admin Trade Name Freq PRN Reason Stop Dose Admin Acetaminophen 650 mg 11/24/22 20:51 Acetaminophen 325 Mg Tablet PO Q6H PRN Mild Pain (1-3) or Fever Brimonidine Tartrate 1 drop 11/24/22 09:00 11/25/22 08:22 Brimonidine Tartrate 0.15% 5 Ml Ophth Soln EACH EYE 1 drop DAILY NEMESIO Administration Dextrose 12.5 gm 11/23/22 16:38 Dextrose 50% 25 Gm/50 Ml Syringe IV PUSH PRN PRN Hypoglycemia Protocol Dorzolamide HCl 1 drop 11/24/22 09:00 11/25/22 08:22 Dorzolamide Hcl 2% Ophth Drops EACH EYE 1 drop DAILY NEMESIO Administration Furosemide 40 mg 11/24/22 17:00 11/25/22 08:22 Furosemide Inj 40 Mg/4 Ml Vial IV PUSH 40 mg BID NEMESIO Administration Glucagon 1 mg 11/23/22 16:38 Glucagon For Inj 1 Mg Vial IM PRN PRN Hypoglycemia Protocol Glucose 15 gm 11/23/22 16:38 Glucose Oral Gel 15 Gm Of Glucse In 37.5 Gm Tube PO PRN PRN Hypoglycemia Protocol Dextrose 1,000 mls @ 100 mls/hr 11/23/22 16:38 Dextrose 5% 1,000 Ml IVPB PRN PRN Hypoglycemia Protocol Insulin Aspart 2 - 5 units 11/23/22 18:00 11/25/22 12:19 Insulin Aspart (*Bkc) 100 Units/Ml SUB-Q Not Given Q6HR NEEMSIO Protocol Morphine Sulfate 4 mg 11/23/22 13:20 Morphine Sulfate (*Crx) 4 Mg/Ml Inj IV PUSH Q2H PRN Pain Rated 7-10 Perflutren Lipid Microsphere 0 ml 11/24/22 14:04 Perflutren Lipid Microspheres 1.5 Ml Vial Diluted To 10 Ml Total Volume IV PUSH 11/26/22 14:04 ONCE PRN adequate visualization Protocol Radiology Results: ITS I
--- NOTE | 2022-11-25 13:19 | PM.CNCAR ---
Assessment and Plan Assessment and plan (1) Acute on chronic systolic (congestive) heart failure: Code(s): I50.23 - Acute on chronic systolic (congestive) heart failure Status: Acute Assessment and Plan: Patient has some degree of decompensated CHF. This point I will give her dose of IV furosemide 40 mg IV x1. Continue oral furosemide also. Continue Entresto. Will add low-dose carvedilol 3.125 mg p.o. b.i.d. and up titrate as able pain on blood pressure. (2) Nonischemic cardiomyopathy: Code(s): I42.8 - Other cardiomyopathies Status: Acute Assessment and Plan: Her cardiomyopathy is worsening and she does have wall motion abnormalities concerning for ischemic etiology. Will order a Lexiscan myocardial perfusion TAVR tomorrow and keep her NPO after midnight for ischemic evaluation. This will also assist in risk stratification for upcoming gallbladder surgery (3) Pulmonary hypertension: Code(s): I27.20 - Pulmonary hypertension, unspecified Status: Acute Assessment and Plan: Severe. Some of her elevated liver enzymes may be related to passive congestion (4) Hypertension associated with diabetes: Code(s): E11.59 - Type 2 diabetes mellitus with other circulatory complications; I15.2 - Hypertension secondary to endocrine disorders Status: Acute Assessment and Plan: At goal (5) Hyperlipidemia associated with type 2 diabetes mellitus: Code(s): E11.69 - Type 2 diabetes mellitus with other specified complication; E78.5 - Hyperlipidemia, unspecified Status: Acute Assessment and Plan: Continue statin (6) Cholelithiasis: Code(s): K80.20 - Calculus of gallbladder without cholecystitis without obstruction Status: Acute Assessment and Plan: Followed by surgery (7) Acute renal failure: Code(s): N17.9 - Acute kidney failure, unspecified Status: Acute Assessment and Plan: Improving (8) Preop cardiovascular exam: Code(s): Z01.810 - Encounter for preprocedural cardiovascular examination Status: Acute Assessment and Plan: She is at least at moderate risk of perioperative cardiovascular complications including heart failure due to her severe cardiomyopathy. In my opinion, I am going to hold off on complete stratification at this point but will order Lexiscan myocardial profusion study for tomorrow for ischemic evaluation. She also appears to have some mild degree of decompensation of heart failure and is not on a beta shaina. Unless imperative, she should be better compensated and beta-shaina on board for at least a month to reduce perioperative risk prior to proceeding with gallbladder surgery. History of Present Illness History of Present Illness Consult date/time: 11/25/22 13:19 Requesting physician: Sherrill Yoo PA-C Consult reason: congestive heart failure and post-op evaluation Reason For Visit: Cholelithiasis/Transaminitis Narrative: Date of service 11/25/2022 Reason for consultation: Preop evaluation, CHF Requesting provider: Sherrill Yoo History: Patient is a 57-year-old female who has a history of what sounds to be nonischemic cardiomyopathy, systolic congestive heart failure, diabetes and hyperlipidemia who normally sees Dr. Floyd for her cardiovascular care. She states that her ejection fraction several years ago was around 35-40% but her ejection fraction has gradually declined into the 20s more recently. She states she had a cardiac catheterization around 2008 and no stents were placed. Her primary entertainment dancer has recommended a defibrillator which she has not agreed upon to this point. She was recently [place] because of chest pain. She had chest pain which radiated into her back as well as some associated shortness of breath. Her symptoms were significant out and she simply did not feel right that she decided to go to the hospital at [facility]. She did si
--- NOTE | 2022-11-25 13:50 | P.PNIM_ITS ---
Progress Note: A&P Assessment and Plan (1) Cholelithiasis: Code(s): K80.20 - Calculus of gallbladder without cholecystitis without obstruction Status: Acute Assessment and Plan: Patient presented with abdominal pain, nausea, and vomiting * RUQ ultrasound showed cholelithiasis without findings of cholecystitis * MRCP completed which showed cholelithiasis, gallbladder wall thickening secondary interstitial edema, no gallbladder distention or other findings of acute cholecystitis * Appreciate general surgery and Gastroenterology consultation * Semi elective laparoscopic cholecystectomy has been recommended this hospital admission * Continue to trend LFTs, slight improvement and total bilirubin today to 2.0 * NPO diet at this time. Advanced per General surgery and GI recommendations (2) Elevated liver enzymes: Code(s): R74.8 - Abnormal levels of other serum enzymes Status: Acute Assessment and Plan: [place] to be secondary to above * Hepatitis panel is negative * LFTs trending down today * Statin on hold * Continue to trend (3) CHF (congestive heart failure), NYHA class I: Code(s): I50.9 - Heart failure, unspecified Status: Acute Assessment and Plan: Longstanding history of CHF established with cardiology. * Echo completed which showed EF 25-30% with abnormal diastolic function and hypokinesis * Appreciate cardiology consultation * Received IV furosemide 1 time dose 40 mg and continue p.o. furosemide * Continue home Entresto * Started on low-dose carvedilol per Cardiology recommendations, will need to be uptitrated as BP allows * Planning for Lexiscan stress test tomorrow due to wall motion abnormalities * Monitor intake and output and daily weights (4) DM2 (diabetes mellitus, type 2): Code(s): E11.9 - Type 2 diabetes mellitus without complications Status: Acute Assessment and Plan: A1c is 5.8 * Blood sugars are stable * Continue accuchecks, SSI, and hypoglycemic protocol (5) Hypertension: Code(s): I10 - Essential (primary) hypertension Status: Acute Assessment and Plan: Blood pressure is stable * Started on low-dose carvedilol as above. Monitor BP trends (6) Acute renal failure: Code(s): N17.9 - Acute kidney failure, unspecified Status: Acute Assessment and Plan: No prior labs available to establish baseline. Creatinine elevated at 1.6 on presentation * Likely prerenal given nausea and vomiting and poor p.o. intake prior to presentation * Creatinine improved following IV fluids to 1.4 today * Now being diuresed, may have some increase in serum creatinine * Continue to monitor BMP Plan Supplement potassium Subjective Date/time seen: 11/25/22 13:50 Interval history: Date of service: 11/25/2022 Jessica Ojeda is a 57-year-old female with history of CHF, type 2 diabetes mellitus, hypertension, hyperlipidemia is seen in follow-up for cholelithiasis. Patient states that she is feeling improved today. She has no abdominal pain this time. Denies nausea vomiting. She is. She denies shortness of breath, chest pain, orthopnea, dyspnea on exertion, or swelling of her lower extremities. She denies fevers or chills. No additional concerns. Review of Systems Review of Systems: All systems reviewed & are unremarkable except as noted in HPI and below Exam Narrative: General: Well-nourished, well-appearing 57-year-old female, sitting up in
--- NOTE | 2022-11-25 13:50 | PM.IMPN ---
Progress Note: A&P Assessment and Plan (1) Cholelithiasis: Code(s): K80.20 - Calculus of gallbladder without cholecystitis without obstruction Status: Acute Assessment and Plan: Patient presented with abdominal pain, nausea, and vomiting RUQ ultrasound showed cholelithiasis without findings of cholecystitis MRCP completed which showed cholelithiasis, gallbladder wall thickening secondary interstitial edema, no gallbladder distention or other findings of acute cholecystitis Appreciate general surgery and Gastroenterology consultation Semi elective laparoscopic cholecystectomy has been recommended this hospital admission Continue to trend LFTs, slight improvement and total bilirubin today to 2.0 NPO diet at this time. Advanced per General surgery and GI recommendations (2) Elevated liver enzymes: Code(s): R74.8 - Abnormal levels of other serum enzymes Status: Acute Assessment and Plan: [place] to be secondary to above Hepatitis panel is negative LFTs trending down today Statin on hold Continue to trend (3) CHF (congestive heart failure), NYHA class I: Code(s): I50.9 - Heart failure, unspecified Status: Acute Assessment and Plan: Longstanding history of CHF established with cardiology. Echo completed which showed EF 25-30% with abnormal diastolic function and hypokinesis Appreciate cardiology consultation Received IV furosemide 1 time dose 40 mg and continue p.o. furosemide Continue home Entresto Started on low-dose carvedilol per Cardiology recommendations, will need to be uptitrated as BP allows Planning for Lexiscan stress test tomorrow due to wall motion abnormalities Monitor intake and output and daily weights (4) DM2 (diabetes mellitus, type 2): Code(s): E11.9 - Type 2 diabetes mellitus without complications Status: Acute Assessment and Plan: A1c is 5.8 Blood sugars are stable Continue accuchecks, SSI, and hypoglycemic protocol (5) Hypertension: Code(s): I10 - Essential (primary) hypertension Status: Acute Assessment and Plan: Blood pressure is stable Started on low-dose carvedilol as above. Monitor BP trends (6) Acute renal failure: Code(s): N17.9 - Acute kidney failure, unspecified Status: Acute Assessment and Plan: No prior labs available to establish baseline. Creatinine elevated at 1.6 on presentation Likely prerenal given nausea and vomiting and poor p.o. intake prior to presentation Creatinine improved following IV fluids to 1.4 today Now being diuresed, may have some increase in serum creatinine Continue to monitor BMP Plan Supplement potassium Subjective Date/time seen: 11/25/22 13:50 Interval history: Date of service: 11/25/2022 Jessica Ojeda is a 57-year-old female with history of CHF, type 2 diabetes mellitus, hypertension, hyperlipidemia is seen in follow-up for cholelithiasis. Patient states that she is feeling improved today. She has no abdominal pain this time. Denies nausea vomiting. She is. She denies shortness of breath, chest pain, orthopnea, dyspnea on exertion, or swelling of her lower extremities. She denies fevers or chills. No additional concerns. Review of Systems Review of Systems: All systems reviewed & are unremarkable except as noted in HPI and below Exam Narrative: General: Well-nourished, well-appearing 57-year-old female, sitting up in bed, comfortable, NARD Neuro: awake, alert and oriented x4, speech clear, no focal neuro deficits noted HEENMT: normocephalic, atraumatic, EOMI, sclerae anicteric Respiratory: clear to auscultation bilaterally, nonlabored breathing Cardio: regular rate, regular rhythm with S1-S2 Abdomen: nondistended, normoactive bowel sounds, soft, nontender to palpation Extremities: no edema, erythema, or tenderness to palpation, DP pulses 2+ bilaterally Skin: no rashes or lesions, warm and
[2022-11-25 14:55] VITALS: BP 111/85; PULSE 95; RESP 18; TEMP 36.7; O2SAT 100
--- NOTE | 2022-11-25 15:24 | PCCCNOTE ---
On 11/25/22, the student, [Alyson Riojas ], provided care and completed [facility] documentation on this patient. I have reviewed the student's documentation and agree with the findings.
[2022-11-25] MEDS: POTASSIUM CHLORIDE 20 MEQ TABLET PO (16:17)
[2022-11-25 18:05] LABS: Glucose Point of Care 141 mg/dl (65-105)
[2022-11-25 20:32] VITALS: PULSE 88
[2022-11-25] MEDS: carvediloL 3.125 MG TABLET PO (20:32)
[2022-11-25] MEDS: ACETAMINOPHEN 325 MG TABLET 650 MG PO (20:49)
[2022-11-25 22:00] VITALS: BP 103/60; PULSE 94; RESP 14; TEMP 36.8; O2SAT 99
[2022-11-25 22:45] VITALS: O2SAT 99
[2022-11-26 00:12] LABS: Glucose Point of Care 105 mg/dl (65-105)
[2022-11-26 05:38] VITALS: BP 107/67; PULSE 77; RESP 14; TEMP 36.6; O2SAT 99
[2022-11-26 05:49] LABS: Glucose Point of Care 84 mg/dl (65-105)
[2022-11-26 06:32] LABS: Hematocrit 35.7 % (37.0-47.0); Hemoglobin 11.2 g/dL (12.0-15.0); Mean Corpuscular HGB Conc 31.4 g/dl (32-36); Mean Corpuscular Hemoglobin 28.9 pg (26-34); Mean Platelet Volume 9.7 fl (7.4-10.4); Platelet Count Result 273 k/mm3 (150-375); Red Blood Count 3.88 M/mm3 (4.2-5.4); Red Cell Distribution Width 18.2 % (11.5-14.5); White Blood Count 4.5 K/mm3 (4.5-10.0)
[2022-11-26 06:56] LABS: Alanine Aminotransferase 162 U/L (6-35); Albumin Level 3.5 g/dL (3.5-5.1); Alkaline Phosphatase 114 U/L (38-126); Anion Gap 8 mmol/L (8-16); Aspartate Amino Transferase 71 U/L (14-36); Bilirubin,Total 2.1 mg/dL (0.2-1.3); Blood Urea Nitrogen 16 mg/dL (7-17); Calcium 7.8 mg/dL (8.4-10.2); Carbon Dioxide 31 mmol/L (22-30); Chloride 100 mmol/L (98-107); Estimated CRCL calculation 58 ml/min; Estimated Glomerular Filt Rate 56; Glucose 93 mg/dL (65-110); Magnesium 2.3 mg/dL (1.6-2.3); Potassium 3.3 mmol/L (3.4-5.0); Sodium 139 mmol/L (137-145)
--- NOTE | 2022-11-26 08:29 | EST_ITS ---
Patient Info Name: Jessica Ojeda Age: 57 years : 1965 Gender: Female Ht: 66 in Wt: 250 lbs BSA: 2.35 m2 HR: 85 bpm BP: 113 / 77 mmHg Heart Rhythm: Sinus Rhythm Exam Date: 11/26/2022 10:02 AM Exam Location: [facility] Stress Patient Status: Inpatient Admit Date: 11/25/2022 Staff Ordering Physician: Karlos Domingo MD Attending Provider: Sherrill Yoo PA-C Exercise Technologist: Ana Cowart CT Nurse: RYAN PAZ Exam Type: CA stress corazon w NM Study Info Indications I42.8 - Other cardiomyopathies Z01.810 - Encounter for preprocedural cardiovascular examination A regadenoson stress test was performed. Summary 1. Please correlate with nuclear medicine images, reported separately. 2. No abnormal ST-T wave changes with lexiscan. Protocol: Lexiscan Stress ECG Details Stage: REST Duration (min): 1 min : 32 sec HR (bpm): 81 SBP (mmHg): 113 DBP (mmHg): 77 Stage: REST Duration (min): 5 min : 50 sec HR (bpm): 87 SBP (mmHg): 113 DBP (mmHg): 77 Stage: STAGE 1 Duration (min): 1 min : 0 sec HR (bpm): 87 SBP (mmHg): 112 DBP (mmHg): 81 Stage: RECOVERY Duration (min): 1 min : 0 sec HR (bpm): 88 SBP (mmHg): 112 DBP (mmHg): 81 Stage: RECOVERY Duration (min): 2 min : 0 sec HR (bpm): 82 SBP (mmHg): 112 DBP (mmHg): 81 Stage: RECOVERY Duration (min): 3 min : 0 sec HR (bpm): 89 SBP (mmHg): 101 DBP (mmHg): 81 Stage: RECOVERY Duration (min): 3 min : 8 sec HR (bpm): 87 SBP (mmHg): 101 DBP (mmHg): 81 Rest HR: 87 bpm Peak HR: 89 bpm Rest Sys BP: 113 mmHg Peak Sys BP: 112 mmHg Max Pred HR: 162 bpm % Max Pred HR: 55 % Target HR: 138 bpm Max RPP: 9,968 bpm*mmHg BP Response: Normal blood pressure response Termination Reason: Completed protocol Cardiac Symptoms: None Total Time: 1 min : 0 sec Rest Najera BP: 77 mmHg Peak Najera BP: 81 mmHg Total Dose: 0.4 mg Resting ECG Normal sinus rhythm. LAD, IVCD. Stress ECG No abnormal ST/T wave changes with exercise. Arrhythmias Occasional PVCs. Report Signatures
--- NOTE | 2022-11-26 09:22 | PM.PNGS ---
Progress Note: A&P Assessment and Plan (1) Cholelithiasis: Code(s): K80.20 - Calculus of gallbladder without cholecystitis without obstruction Status: Acute Assessment and Plan: Patient will eventually need a cholecystectomy. She has not had any evidence of acute cholecystitis at this point and we feel the surgery could be done more electively once she has further cardiac workup and could be medically optimized. She could eventually be discharged on a low fat diet and follow-up as an outpatient to plan surgery accordingly. Will await results of the stress test today. Okay to advance her to a low fat diet from our standpoint after testing. If the patient were to have any issues with tolerating a diet, then we may need to consider percutaneous cholecystostomy tube placement in the interim while having further cardiac workup and treatment. Will continue to follow along and see how she progresses. (2) CHF (congestive heart failure), NYHA class I: Code(s): I50.9 - Heart failure, unspecified Status: Acute Assessment and Plan: Discussed with Cardiology. Patient with some degree of decompensated CHF. She continues to be diuresed and beta shaina added. They have also recommended a stress test for further ischemic evaluation pre-operatively. As her cholecystectomy could be done electively, we will await complete cardiac workup and medical optimization prior to planning her surgery. See plan above. (3) Nonischemic cardiomyopathy: Code(s): I42.8 - Other cardiomyopathies Status: Acute Assessment and Plan: Stress test scheduled today (4) Transaminitis: Code(s): R74.01 - Elevation of levels of liver transaminase levels Status: Acute Assessment and Plan: About the same today with total bilirubin still at 2.1. Continue to monitor. (5) Acute renal failure: Code(s): N17.9 - Acute kidney failure, unspecified Status: Acute (6) DM2 (diabetes mellitus, type 2): Code(s): E11.9 - Type 2 diabetes mellitus without complications Status: Acute Plan I have discussed the patient's case and plan of care with Dr. Landers. Subjective Subjective Date/Time Seen: 11/26/22 08:55 Patient reports: no new complaints and afebrile Interval history: Patient reports having some mild epigastric abdominal pain last night, but this resolved spontaneously. No nausea or vomiting. She is NPO this morning for a stress test. No other new complaints or acute events overnight. Review of Systems Review of Systems: ROS unchanged Exam Const: General: comfortable and no acute distress Orientation/consciousness: patient oriented x3 GI: Inspection: non-distended GI Palp: Yes Soft to palpation, No Tenderness to palpation present (GI) and No Guarding due to palpation present (GI) Auscultation: normal bowel sounds Objective Data Vital Signs Vital Signs: Vital Signs - 24 hr 11/25/22 14:55 11/25/22 20:32 11/25/22 22:00 Temperature 98.0 F 98.2 F Pulse Rate 95 88 94 Respiratory Rate 18 14 Blood Pressure 111/85 103/60 Pulse Oximetry 100 99 Oxygen Delivery 11/25/22 20:00 11/25/22 22:45 11/26/22 05:38 Temperature 97.8 F Pulse Rate 77 Respiratory Rate 14 Blood Pressure 107/67 Pulse Oximetry 99 99 Oxygen Delivery Room Air Room Air 11/26/22 08:00 Temperature Pulse Rate Respiratory Rate Blood Pressure Pulse Oximetry Oxygen Delivery Room Air Intake/Output Intake/Output: Intake & Output 11/23/22 11/24/22 11/25/22 11/26/22 23:59 23:59 23:59 23:59 Intake Total 1820 2049 240 Balance [id number] 240 Meds/Results Medications: Active Medications Generic Name Dose Route Start Last Admin Trade Name Freq PRN Reason Stop Dose Admin Acetaminophen 650 mg 11/24/22 20:51 11/25/22 20:49 Acetaminophen 325 Mg Tablet PO 650 mg Q6H PRN Administration Mild Pain (1-3) or Fever Brimonidine Tartrate 1 drop 11/24/22
[2022-11-26 11:19] VITALS: BP 127/91; PULSE 94; RESP 16; TEMP 35.8; O2SAT 99
--- NOTE | 2022-11-26 11:20 | PM.PNCARD ---
Progress Note: A&P Assessment and Plan (1) Acute on chronic systolic (congestive) heart failure: Code(s): I50.23 - Acute on chronic systolic (congestive) heart failure Status: Acute Assessment and Plan: She is euvolemic on exam today. Entresto held since admission because of VALERIE. Restart home dose today. Continue carvedilol 3.125 mg p.o. b.i.d. Will also add spironolactone 25mg daily. Shift to p.o. furosemide today. Check BMP in a.m. (2) Nonischemic cardiomyopathy: Code(s): I42.8 - Other cardiomyopathies Status: Acute Assessment and Plan: Her cardiomyopathy is worsening and she does have wall motion abnormalities concerning for ischemic etiology. MPI today showed a moderate-sized, mild fixed infarct at the apical, apical anterior and apical septal segments. No reversible ischemia. Probable attenuation artifact along the inferior wall. Will manage medically with ASA, statin. Resume statin when liver enzymes normalize. Can start low dose ASA now. (3) Pulmonary hypertension: Code(s): I27.20 - Pulmonary hypertension, unspecified Status: Acute Assessment and Plan: Severe. Some of her elevated liver enzymes may be related to passive congestion (4) Hypertension associated with diabetes: Code(s): E11.59 - Type 2 diabetes mellitus with other circulatory complications; I15.2 - Hypertension secondary to endocrine disorders Status: Acute Assessment and Plan: At goal (5) Hyperlipidemia associated with type 2 diabetes mellitus: Code(s): E11.69 - Type 2 diabetes mellitus with other specified complication; E78.5 - Hyperlipidemia, unspecified Status: Acute Assessment and Plan: Continue statin (6) Cholelithiasis: Code(s): K80.20 - Calculus of gallbladder without cholecystitis without obstruction Status: Acute Assessment and Plan: Followed by surgery (7) Acute renal failure: Code(s): N17.9 - Acute kidney failure, unspecified Status: Acute Assessment and Plan: Improving (8) Preop cardiovascular exam: Code(s): Z01.810 - Encounter for preprocedural cardiovascular examination Status: Acute Assessment and Plan: She is at least at moderate risk of perioperative cardiovascular complications including heart failure due to her severe cardiomyopathy. She does also have evidence of CAD on MPI today with a moderate sized fixed apical perfusion defect. No reversible ischemia was seen, so no indication for coronary angiogram at this point. Appears to be better compensated today from a heart failure standpoint. Unless imperative, she should be better compensated and beta-shaina on board for at least a month to reduce perioperative risk prior to proceeding with gallbladder surgery. Subjective Date/time seen: 11/26/22 11:20 Cardiology follow up for cardiomyopathy, preop cardiac risk assessment Interval history: Feeling well today with no complaints. She denies shortness of breath, chest pain, palpitations. Review of Systems Review of Systems: All systems reviewed & are unremarkable except as noted in HPI and below Constitutional: Constitutional: Denies body ache(s) and Denies excessive sweating Eyes: Eyes: Denies blurry vision ENT: Reports Normal hearing present Cardiovascular: Cardiovascular: Reports chest pain, Reports pedal edema and Reports dyspnea on exertion Respiratory: Respiratory: Reports dyspnea on exertion Gastrointestinal: Gastrointestinal: Reports abdominal pain Genitourinary: Genitourinary: Denies hematuria Musculoskeletal: Musculoskeletal: Denies back pain Integumentary/Breasts: Skin/Breast: Denies dry skin Neurologic: Reports Normal hearing present and Denies Abnormal speech present Psychiatric: Psychiatric: Denies anxiety Endocrine: Endocrine: Denies excessive sweating Hematologic/Lymphatic: Hematologic/Lymphatic: Denies easy bleeding Allergi
[2022-11-26 11:56] LABS: Glucose Point of Care 111 mg/dl (65-105)
[2022-11-26 13:27] VITALS: PULSE 89
[2022-11-26] MEDS: carvediloL 3.125 MG TABLET PO ×2 (13:27→20:37)
[2022-11-26] MEDS: BRIMONIDINE TARTRATE 0.15% 5 ML OPHTH SOLN 1 DROP EACH EYE (13:27)
[2022-11-26] MEDS: FUROSEMIDE INJ 40 MG/4 ML VIAL IV PUSH (13:28)
[2022-11-26] MEDS: DORZOLAMIDE HCL 2% OPHTH DROPS 1 DROP EACH EYE (13:28)
--- NOTE | 2022-11-26 13:51 | PCCCNOTE ---
On 11/26/22, the student, [Alyson Riojas ], provided care and completed [facility] on this patient. I have reviewed the student's documentation and agree with the findings.
[2022-11-26 14:00] VITALS: BP 115/82; PULSE 90; RESP 16; TEMP 36.1; O2SAT 100
--- NOTE | 2022-11-26 14:42 | P.PNIM_ITS ---
Progress Note: A&P Assessment and Plan (1) Cholelithiasis: Code(s): K80.20 - Calculus of gallbladder without cholecystitis without obstruction Status: Acute Assessment and Plan: Patient presented with abdominal pain, nausea, and vomiting * RUQ ultrasound showed cholelithiasis without findings of cholecystitis * MRCP completed which showed cholelithiasis, gallbladder wall thickening secondary interstitial edema, no gallbladder distention or other findings of acute cholecystitis * Appreciate general surgery and Gastroenterology consultation * Semi elective laparoscopic cholecystectomy vs cholecystostomy being considered based on cardiac workup * Continue to trend LFTs, total bilirubin remaining generally stable * Clear liquid diet at this time (2) Elevated liver enzymes: Code(s): R74.8 - Abnormal levels of other serum enzymes Status: Acute Assessment and Plan: [place] to be secondary to above * Hepatitis panel is negative * LFTs trending down today * Statin on hold * Continue to trend (3) CHF (congestive heart failure), NYHA class I: Code(s): I50.9 - Heart failure, unspecified Status: Acute Assessment and Plan: Longstanding history of CHF established with cardiology. * Echo completed which showed EF 25-30% with abnormal diastolic function and hypokinesis * Appreciate cardiology consultation * Continue lasix 40 mg PO daily * Continue home Entresto * Started on low-dose carvedilol per Cardiology recommendations, will need to be uptitrated as BP allows * started on spirinolactone 25 mg daily * Monitor intake and output and daily weights (4) Nonischemic cardiomyopathy: Code(s): I42.8 - Other cardiomyopathies Status: Acute Assessment and Plan: Noted to have wall motion abnormalities on echocardiogram concerning for ischemic etiology * Underwent stress test today which showed moderate size mild fixed infarct at the apical anterior and apical septal segments with no reversible ischemia * Appreciate cardiology recommendations * Medical management. Patient started on aspirin. statin on hold due to transaminitis at this time, resume when appropriate (5) DM2 (diabetes mellitus, type 2): Code(s): E11.9 - Type 2 diabetes mellitus without complications Status: Acute Assessment and Plan: A1c is 5.8 * Blood sugars are stable * Continue accuchecks, SSI, and hypoglycemic protocol (6) Hypertension: Code(s): I10 - Essential (primary) hypertension Status: Acute Assessment and Plan: Blood pressure is stable * Started on low-dose carvedilol as above. Monitor BP trends (7) Acute renal failure: Code(s): N17.9 - Acute kidney failure, unspecified Status: Acute Assessment and Plan: No prior labs available to establish baseline. Creatinine elevated at 1.6 on presentation * Likely prerenal given nausea and vomiting and poor p.o. intake prior to presentation * Creatinine improved following IV fluids to 1.2 today * Now being diuresed, may have some increase in serum creatinine * Continue to monitor BMP Subjective Date/time seen: 11/26/22 14:42 Interval history: Date of service: 11/26/2022 Jessica Ojeda is a 57-year-old female with history of CHF, type 2 diabetes mellitus, hypertension, hyperlipidemia is seen in follow-up for cholelithiasis. She is feeling today. She states this to swell. She denies chest pain or shortness of breath. No abdominal pain. She is tolerating clear liquids.
--- NOTE | 2022-11-26 14:42 | PM.IMPN ---
Progress Note: A&P Assessment and Plan (1) Cholelithiasis: Code(s): K80.20 - Calculus of gallbladder without cholecystitis without obstruction Status: Acute Assessment and Plan: Patient presented with abdominal pain, nausea, and vomiting RUQ ultrasound showed cholelithiasis without findings of cholecystitis MRCP completed which showed cholelithiasis, gallbladder wall thickening secondary interstitial edema, no gallbladder distention or other findings of acute cholecystitis Appreciate general surgery and Gastroenterology consultation Semi elective laparoscopic cholecystectomy vs cholecystostomy being considered based on cardiac workup Continue to trend LFTs, total bilirubin remaining generally stable Clear liquid diet at this time (2) Elevated liver enzymes: Code(s): R74.8 - Abnormal levels of other serum enzymes Status: Acute Assessment and Plan: [place] to be secondary to above Hepatitis panel is negative LFTs trending down today Statin on hold Continue to trend (3) CHF (congestive heart failure), NYHA class I: Code(s): I50.9 - Heart failure, unspecified Status: Acute Assessment and Plan: Longstanding history of CHF established with cardiology. Echo completed which showed EF 25-30% with abnormal diastolic function and hypokinesis Appreciate cardiology consultation Continue lasix 40 mg PO daily Continue home Entresto Started on low-dose carvedilol per Cardiology recommendations, will need to be uptitrated as BP allows started on spirinolactone 25 mg daily Monitor intake and output and daily weights (4) Nonischemic cardiomyopathy: Code(s): I42.8 - Other cardiomyopathies Status: Acute Assessment and Plan: Noted to have wall motion abnormalities on echocardiogram concerning for ischemic etiology Underwent stress test today which showed moderate size mild fixed infarct at the apical anterior and apical septal segments with no reversible ischemia Appreciate cardiology recommendations Medical management. Patient started on aspirin. statin on hold due to transaminitis at this time, resume when appropriate (5) DM2 (diabetes mellitus, type 2): Code(s): E11.9 - Type 2 diabetes mellitus without complications Status: Acute Assessment and Plan: A1c is 5.8 Blood sugars are stable Continue accuchecks, SSI, and hypoglycemic protocol (6) Hypertension: Code(s): I10 - Essential (primary) hypertension Status: Acute Assessment and Plan: Blood pressure is stable Started on low-dose carvedilol as above. Monitor BP trends (7) Acute renal failure: Code(s): N17.9 - Acute kidney failure, unspecified Status: Acute Assessment and Plan: No prior labs available to establish baseline. Creatinine elevated at 1.6 on presentation Likely prerenal given nausea and vomiting and poor p.o. intake prior to presentation Creatinine improved following IV fluids to 1.2 today Now being diuresed, may have some increase in serum creatinine Continue to monitor BMP Subjective Date/time seen: 11/26/22 14:42 Interval history: Date of service: 11/26/2022 Jessica Ojeda is a 57-year-old female with history of CHF, type 2 diabetes mellitus, hypertension, hyperlipidemia is seen in follow-up for cholelithiasis. She is feeling today. She states this to swell. She denies chest pain or shortness of breath. No abdominal pain. She is tolerating clear liquids. Denies nausea, vomiting, fever, or chills. Review of Systems Review of Systems: All systems reviewed & are unremarkable except as noted in HPI and below Exam Narrative: General: Well-nourished, well-appearing 57-year-old female, sitting up in bed, comfortable, NARD Neuro: awake, alert and oriented x4, speech clear, no focal neuro deficits noted HEENMT: normocephalic, atraumatic, EOMI, sclerae anicteric Respiratory: clear to aus
[2022-11-26] MEDS: SACUBITRIL/VALSARTAN 49-51 MG TABLET 1 TABLET PO (16:40)
[2022-11-26] MEDS: POTASSIUM CHLORIDE 20 MEQ TABLET 40 MEQ PO (16:41)
[2022-11-26] MEDS: ASPIRIN 81 MG ENTERIC TABLET PO (16:41)
[2022-11-26 18:08] LABS: Glucose Point of Care 170 mg/dl (65-105)
[2022-11-26 20:37] VITALS: PULSE 64
[2022-11-26 21:42] VITALS: BP 104/58; PULSE 84; RESP 14; TEMP 36.3; O2SAT 99
[2022-11-26 23:18] LABS: Glucose Point of Care 124 mg/dl (65-105)
[2022-11-27 05:17] LABS: Glucose Point of Care 93 mg/dl (65-105)
[2022-11-27 05:31] VITALS: BP 100/68; PULSE 77; RESP 14; TEMP 36.5; O2SAT 98
[2022-11-27 06:26] LABS: Hematocrit 37.1 % (37.0-47.0); Hemoglobin 11.4 g/dL (12.0-15.0); Mean Corpuscular HGB Conc 30.7 g/dl (32-36); Mean Corpuscular Hemoglobin 27.9 pg (26-34); Mean Corpuscular Volume 90.9 fl (80-100); Mean Platelet Volume 9.2 fl (7.4-10.4); Platelet Count Result 262 k/mm3 (150-375); Red Blood Count 4.08 M/mm3 (4.2-5.4); Red Cell Distribution Width 18.3 % (11.5-14.5); White Blood Count 4.5 K/mm3 (4.5-10.0)
[2022-11-27 06:38] LABS: Alanine Aminotransferase 129 U/L (6-35); Albumin Level 3.4 g/dL (3.5-5.1); Alkaline Phosphatase 114 U/L (38-126); Anion Gap 6 mmol/L (8-16); Aspartate Amino Transferase 44 U/L (14-36); Bilirubin,Total 1.9 mg/dL (0.2-1.3); Blood Urea Nitrogen 15 mg/dL (7-17); Calcium 7.9 mg/dL (8.4-10.2); Carbon Dioxide 33 mmol/L (22-30); Chloride 98 mmol/L (98-107); Estimated CRCL calculation 58 ml/min; Estimated Glomerular Filt Rate 56; Glucose 102 mg/dL (65-110); Potassium 3.1 mmol/L (3.4-5.0); Sodium 137 mmol/L (137-145)
[2022-11-27 08:23] VITALS: PULSE 80
[2022-11-27] MEDS: SACUBITRIL/VALSARTAN 49-51 MG TABLET 1 TABLET PO (08:23)
[2022-11-27] MEDS: carvediloL 3.125 MG TABLET PO (08:23)
[2022-11-27] MEDS: ASPIRIN 81 MG ENTERIC TABLET PO (08:23)
[2022-11-27] MEDS: FUROSEMIDE 40 MG TABLET PO (08:23)
[2022-11-27] MEDS: BRIMONIDINE TARTRATE 0.15% 5 ML OPHTH SOLN 1 DROP EACH EYE (08:23)
[2022-11-27] MEDS: DORZOLAMIDE HCL 2% OPHTH DROPS 1 DROP EACH EYE (08:23)
--- NOTE | 2022-11-27 09:44 | PM.PNGS ---
Progress Note: A&P Assessment and Plan (1) Cholelithiasis: Code(s): K80.20 - Calculus of gallbladder without cholecystitis without obstruction Status: Acute Assessment and Plan: Patient has known cholelithiasis on imaging with some mild gallbladder wall edema likely due to passive congestion from her CHF. She has no pain presently but likely has some degree of chronic cholecystitis. Her liver enzymes are only minimally elevated and we will continue to just follow those levels. I think at some point the future she would benefit from an elective laparoscopic cholecystectomy. Will follow cardiology recommendations and manage her expectantly for now as they tried to medically optimize her cardiac function. If she were to develop acute cholecystitis then I would recommend placement of a cholecystostomy tube to decompress the gallbladder and temporize her until we could do a interval laparoscopic cholecystectomy in the future. She has a normal white count and so no need for oral antibiotics and some of discharge. She should stay on a low-fat and bland diet. She should follow up to see me in the office in about 2 to 3 weeks. Patient to call [phone] for a follow-up appointment. She may be discharged from a general surgery standpoint at the discretion of Cardiology and the hospitalist service. (2) RUQ pain: Code(s): R10.11 - Right upper quadrant pain Status: Acute Assessment and Plan: As above. Subjective Subjective Date/Time Seen: 11/27/22 09:44 Patient reports: no new complaints and feels better Interval history: Patient is doing well today. She is up eating low-fat diet without difficulty. Nausea or right upper quadrant pain. She had her stress test yesterday which showed a fixed apical defect and some wall motion abnormality and hypokinesis. No reversible ischemia was seen and there is no indication for cardiac interventions other than medical management as per the cardiology note. Her liver enzymes are stable and the total bilirubin is still right at 2.0. Review of Systems Review of Systems: The remainder of the review of systems to include constitutional, HEENT, cardiovascular, respiratory, GI, , integumentary, musculoskeletal, endocrine, immunologic, hematologic, psychiatric, and neurologic are all negative except for which is mentioned above in the HPI. Exam Const: General: cooperative and comfortable Eyes: Pupils: Equal, round and reactive pupils present EOM: EOMs intact bilaterally Neck: Neck: normal visual inspection, full ROM, no lymphadenopathy and trachea midline Chest: Chest palpation & inspection: normal inspection of the chest Resp: Effort & Inspection: normal respiratory effort and able to speak in complete sentences Auscultation: clear to auscultation bilaterally Cardio: Jugular venous distension: no JVD Rate: regular rate Rhythm: regular rhythm GI: Inspection: normal to inspection GI Palp: Yes Soft to palpation Neuro: General: oriented to person, oriented to place and oriented to time Cranial nerves: Yes CN's II-XII intact bilaterally Speech: normal speech Sensory Exam: normal sensation Psych: Appearance: grossly normal and well kempt Mental Status: mental status grossly normal Objective Data Vital Signs Vital Signs: Vital Signs - 24 hr 11/26/22 11:19 11/26/22 13:27 11/26/22 14:00 Temperature 35.8 C L 36.1 C L Pulse Rate 94 89 90 Respiratory Rate 16 16 Blood Pressure 127/91 H 115/82 Pulse Oximetry 99 100 Oxygen Delivery 11/26/22 20:37 11/26/22 21:42 11/26/22 20:00 Temperature 36.3 C L Pulse Rate 64 84 Respiratory Rate 14 Blood Pressure 104/58 L Pulse Oximetry 99 Oxygen Delivery Room Air 11/27/22 05:31 11/27/22 08:23 11/27/22 08:00 Temperature 36.5 C Pulse Rate 77 80 Respiratory Rate 14 Blood Pressure 100/68 Pulse Oximetry 98 Oxygen Delivery Room Air Intake/Output Intake/Output: Inta
[2022-11-27] MEDS: POTASSIUM CHLORIDE 20 MEQ TABLET 40 MEQ PO (10:26)
[2022-11-27 11:31] LABS: Glucose Point of Care 161 mg/dl (65-105)
--- NOTE | 2022-11-27 13:49 | P.DS_ITS ---
DS: Admitting Diagnosis Discharge Date 11/27/2022 Admitting Diagnosis Cholelithiasis DS: Discharge Diagnosis Discharge Diagnosis (1) Cholelithiasis: Code(s): K80.20 - Calculus of gallbladder without cholecystitis without obstruction Status: Acute Assessment and Plan: Patient presented with abdominal pain, nausea, and vomiting * RUQ ultrasound showed cholelithiasis without findings of cholecystitis * MRCP completed which showed cholelithiasis, gallbladder wall thickening secondary interstitial edema, no gallbladder distention or other findings of acute cholecystitis * She was seen in consultation by General surgery and Gastroenterology * Plan is for outpatient elective laparoscopic cholecystectomy following cardiac optimization * LFTs and total bilirubin remaining stable * Continue low-fat diet * Plan for general surgery follow-up in 2-3 weeks as an outpatient (2) Elevated liver enzymes: Code(s): R74.8 - Abnormal levels of other serum enzymes Status: Acute Assessment and Plan: [place] to be secondary to above * Hepatitis panel is negative * LFTs with overall improvement * Repeat CMP in 1 week as an outpatient to monitor LFTs * Statin on hold until repeat LFTs (3) CHF (congestive heart failure), NYHA class I: Code(s): I50.9 - Heart failure, unspecified Status: Acute Assessment and Plan: Longstanding history of CHF established with cardiology. * Echo completed which showed EF 25-30% with abnormal diastolic function and hypokinesis * She was seen in consultation by Cardiology during admission * Lasix was increased to 40 mg p.o. daily. Potassium supplementation started, 2 0 mEq p.o. daily * Continue home Entresto * Started on low-dose carvedilol per Cardiology recommendations, 3.125 mg b.i.d. 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 Patient started on aspirin. statin on hold due to transaminitis at this time, resume when appropriate based on repeat LFTs * Outpatient cardiology follow-up in 1 week (5) DM2 (diabetes mellitus, type 2): Code(s): E11.9 - Type 2 diabetes mellitus without complications Status: Acute Assessment and Plan: A1c is 5.8 * Blood sugars remained stable * Continue home metformin and Ozempic (6) Hypertension: Code(s): I10 - Essential (primary) hypertension Status: Acute Assessment and Plan: Blood pressure stable * Started on low-dose carvedilol as above. continue furosemide (7) Acute renal failure: Code(s): N17.9 - Acute kidney failure, unspecified Status: Acute Assessment and Plan: resolved.No prior labs available to establish baseline. Creatinine elevated at 1.6 on presentation * Likely prerenal given nausea and vomiting and poor p.o. intake prior to presentation * Creatinine improved following IV fluids * Monitor renal function with ongoing diuresis * Repeat CMP in 1 week with results to PCP DS: Summary Hospital Course Hospital Course: date of admission: 11/23/2022 date of discharge: 11/27/2022 Jessica Ojeda is a 57-year-old female w
--- NOTE | 2022-11-27 13:49 | PM.DS ---
DS: Admitting Diagnosis Discharge Date 11/27/2022 Admitting Diagnosis Cholelithiasis DS: Discharge Diagnosis Discharge Diagnosis (1) Cholelithiasis: Code(s): K80.20 - Calculus of gallbladder without cholecystitis without obstruction Status: Acute Assessment and Plan: Patient presented with abdominal pain, nausea, and vomiting RUQ ultrasound showed cholelithiasis without findings of cholecystitis MRCP completed which showed cholelithiasis, gallbladder wall thickening secondary interstitial edema, no gallbladder distention or other findings of acute cholecystitis She was seen in consultation by General surgery and Gastroenterology Plan is for outpatient elective laparoscopic cholecystectomy following cardiac optimization LFTs and total bilirubin remaining stable Continue low-fat diet Plan for general surgery follow-up in 2-3 weeks as an outpatient (2) Elevated liver enzymes: Code(s): R74.8 - Abnormal levels of other serum enzymes Status: Acute Assessment and Plan: [place] to be secondary to above Hepatitis panel is negative LFTs with overall improvement Repeat CMP in 1 week as an outpatient to monitor LFTs Statin on hold until repeat LFTs (3) CHF (congestive heart failure), NYHA class I: Code(s): I50.9 - Heart failure, unspecified Status: Acute Assessment and Plan: Longstanding history of CHF established with cardiology. Echo completed which showed EF 25-30% with abnormal diastolic function and hypokinesis She was seen in consultation by Cardiology during admission Lasix was increased to 40 mg p.o. daily. Potassium supplementation started, 20 mEq p.o. daily Continue home Entresto Started on low-dose carvedilol per Cardiology recommendations, 3.125 mg b.i.d. 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 Patient started on aspirin. statin on hold due to transaminitis at this time, resume when appropriate based on repeat LFTs Outpatient cardiology follow-up in 1 week (5) DM2 (diabetes mellitus, type 2): Code(s): E11.9 - Type 2 diabetes mellitus without complications Status: Acute Assessment and Plan: A1c is 5.8 Blood sugars remained stable Continue home metformin and Ozempic (6) Hypertension: Code(s): I10 - Essential (primary) hypertension Status: Acute Assessment and Plan: Blood pressure stable Started on low-dose carvedilol as above. continue furosemide (7) Acute renal failure: Code(s): N17.9 - Acute kidney failure, unspecified Status: Acute Assessment and Plan: resolved.No prior labs available to establish baseline. Creatinine elevated at 1.6 on presentation Likely prerenal given nausea and vomiting and poor p.o. intake prior to presentation Creatinine improved following IV fluids Monitor renal function with ongoing diuresis Repeat CMP in 1 week with results to PCP DS: Summary Hospital Course Hospital Course: date of admission: 11/23/2022 date of discharge: 11/27/2022 Jessica Ojeda is a 57-year-old female with history of CHF, type 2 diabetes mellitus, hypertension, hyperlipidemia presented to the emergency department on 11/23/2022 with complaints of epigastric pain and chest discomfort. On presentation to the ED she was mildly tachycardic with additional vital signs stable creatinine 1.6, total bilirubin 1.7, AST 201, ALT 270, BNP [id number], additional laboratory unremarkable, CXR mild pulmonary edema cardiomegaly ultrasound showed cholelithiasis without findings of ch
== END 2022-11-27 14:41 | disposition home or self-care (01) | DRG 444 ==
LOC: ANHED 10:49 → ANH3MEDSUR 14:46
PROVIDERS: Nurse Practitioner; Nurse Practitioner Family; Admitting Provider Internal Medicine; Emergency Provider Emergency Medicine; PCP Internal Medicine; Visit Provider Physician Assistant
DX: K80.20 Calculus of gallbladder without cholecystitis without obstruction (principal); I50.23 Acute on chronic systolic (congestive) heart failure; I42.8 Other cardiomyopathies; N17.9 Acute kidney failure, unspecified; I11.0 Hypertensive heart disease with heart failure; E78.5 Hyperlipidemia, unspecified; E86.0 Dehydration; D64.9 Anemia, unspecified; H40.9 Unspecified glaucoma; I25.10 Atherosclerotic heart disease of native coronary artery without angina pectoris; E11.69 Type 2 diabetes mellitus with other specified complication; E11.59 Type 2 diabetes mellitus with other circulatory complications; I15.2 Hypertension secondary to endocrine disorders; Z90.710 Acquired absence of both cervix and uterus; Z90.49 Acquired absence of other specified parts of digestive tract
CPT/HCPCS: 36415; 71046; 74183; 76376; 76705; 78452; 80053; 80074; 82140; 82948; 83036; 83605; 83690; 83735; 83880; 84443; 84484; 85025; 85027; 85610; 85730; 93005; 93017; 93306; 96361; 96374; 96376; 99285; A9270; A9502; A9577; G0378; J1940; J2785; J7030

== ENCOUNTER 2024-12-11 13:18 | Inpatient (IN) | payer OTHER, SELFPAY ==
[2024-12-11] VITALS (15 sets, daily range): BP systolic 85–128; BP diastolic 49–96; PULSE 71–89; RESP 16–24; TEMP 36.4–37.1; O2SAT 93–97; BMI 37.0
--- NOTE | ~2024-12-11 | XR_ITS ---
XR chest 1V portable Ordering provider: Gladys Cooley APRN History: 59 years Female with . crackles . Comparison: November 23, 2022 FINDINGS: MEDIASTINUM: The cardiac silhouette is slightly enlarged. Left bipolar pacemaker. Congestive blair. LUNGS: No effusions or pneumothorax. Minimal interstitial and alveolar opacification suggestive of pu lmonary edema. Superimposed pneumonia cannot be excluded. OTHER: No free air under the diaphragm. IMPRESSION: Cardiomegaly with cardiac decompensation and pulmonary edema. Superimposed pneumonia cannot be exclud ed. Reviewed, dictated and finalized at location A. IMPRESSION: Cardiomegaly with cardiac decompensation and pulmonary edema. Superimposed pneu monia cannot be excluded.
--- OUTSIDE RECORDS SUMMARY | 2024-12-11 13:21 | XMS_ITS | CONTINUITY OF CARE DOCUMENT ---
Author Name kenji jermanjaqueline Address Unknown Organization [facility] Address [address] [place] [address] Phone [phone] Care Team Providers Care Manager Biostatistics Name Role Phone Simba Floyd MD Unavailable [phone] Savage Fleming MD Unavailable Savage Fleming MD Unavailable PROBLEMS Condition Status Date Provider Notes S/P Single chamber AICD - Biotronik/Upgrade BiV ICD Biotronik 03/02/23 ( MRI safe) active Jesenia Goyal GLAUCOMA active Jonathan Enrique OBESITY active Jonathan Enrique Hypertension active Simba Floyd MD FAMILY HX CARDIOVASCULAR DISEASE completed - Simba Floyd MD CHEST PAIN-04/08 CATH DECREASED LV, INCREASED LVEDP completed - Simba Floyd MD EDEMA completed - Simba Floyd MD HYSTERECTOMY, HX OF completed - Simba Floyd MD APPENDECTOMY, HX OF completed - Simba Floyd MD Nonischemic cardiomyopathy - 06/2019 TTE EF 35% active Dean Wild RENAL ARTERY STENOSIS-10/12 RHYS DUP NEG completed - Simba Floyd MD LAE- 10/12 ECHO EF 20 SEVERE LAE PASP 68 completed - Simba Floyd MD CHF active Simba Floyd MD Sleep apnea, obstructive - on CPAP active Simba Floyd MD LBBB active Dean Wild Diabetes mellitus active Dean Wild Syncope active Simba Floyd MD Preoperative cardiovascular examination active Lupe Mistry Cholecystitis active Lupe Mistry Hypotension active Simba Floyd MD Shortness of breath active Jeovany Jethro Ventricular fibrillation active Zarina Vent imiglia HEAD CHAR FILTER TANK TENDER Cardiology examination active Simba Holguin 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 Simba Floyd MD ENCOUNTERS Date Type Provider Location Encounter Diag nosis - In-person encounter Office Visit [facility] Risk of amiodarone toxicity w [facility] - In-person encounter Office Visit Simba Floyd MD [facility] Cardiology examination - In-person encounter Office Visit Simba Floyd MD [place] [facility] Ventricular fibrillation - In-person encounter Office Visit Simba Floyd MD [place] [facility] Shortness of breath - In-person encounter Office Visit Simba Floyd MD [place] [facility] Hypotension - In-person encounter Office Visit Simba Floyd MD [place] [facility] - In-person encounter Office Visit Simba Floyd MD [place] [facility] Preoperative cardiovascular examinationCholecystitis - In-person encounter Office Visit Simba Floyd MD [facility] - In-person encounter Office Visit Simba Floyd MD [facility] Syncope - In-person encounter Office Visit Simba Floyd MD [facility] - In-person encounter Office Visit Simba Floyd MD [place] [facility] Nonischemic cardiomyopathy - 06/2019 TTE EF 35%LBBBDiabetes mellitus - In-person encounter Office Visit Simba Floyd MD [place] [facility] HypertensionCHEST PAIN-04/08 CATH DECREASED LV, INCREASED LVEDPEDEMANonischemic cardiomyopathy - 06/2019 TTE EF 35%LAE- 10/12 ECHO EF 20 SEVERE LAE PASP 68Sleep apnea, obstructive - on CPAP - In-person encounter Office Visit Simba Floyd MD [place] [facility] - In-person encounter Office Visit Simba Floyd MD [facility] - In-person encounter Office Visit Simba Floyd MD [place] [facility] FAMILY HX CARDIOVASCULAR DISEASEHYSTERECTOMY, HX OFAPPENDECTOMY, HX OFNonischemic cardiomyopathy - 06/2019 TTE EF 35%RENAL ARTERY STENOSIS-10/12 RHYS DUP NEGCHF - In-person encounter Office Visit Simba Floyd MD [facility] - In-person encounter Office Visit Simba Floyd MD [facility] - In-person encounter Office Visit Simba Floyd MD [facility] Sleep apnea, obstructive - on CPAP - In-person encounter Office Visit Simba Floyd MD [facility] - In-person encounter Office Visit Simba Floyd MD [facility] - In-person encounter Office Visit Sibma Floyd MD [facility] - In-person encounter Office Visit Simba Floyd MD [facility] - In-person encounter Office Visit Sibma Floyd MD [facility] - In-person encounter Office Visit Simba Floyd MD [facility] - In-person encounter Office Visit Simba Floyd MD [facility] - In-person encounter Office Visit Rustam Rosen MD [facility] - In-person encounter Office Visit Simba Floyd MD [facility] Nonischemic cardiomyopathy - 06/2019 TTE EF 35% VITAL SIGNS Date Observation Value Provider Body Mass Index (Ratio) 37.43 kg/m2 Simba Floyd MD pulse rate 81 /min Sarika Jane s oxygen saturation, oximetry 97 % Sarika Polk blood pressure, diastolic 85 mm[Hg] Ti shandra Polk blood pressure, systolic 126 mm[Hg] Tif toyin Polk blood pressure, cuff size regular Ti shandra Polk weight E&M 239 [lb_av] Sarika Jane s height E&M 67 [in_i] [facility] Body Mass Index (Ratio) 37.90 kg/m2 Guillermina Reddy blood pressure, cuff size large Ta angelica Ashraf blood pressure, diastolic 84 mm[Hg] Ta axelha Ashraf blood pressure, systolic 124 mm[Hg] Tab ithcarlyn Ashraf oxygen saturation, oximetry 100 % Shefali Ashraf pulse rate 76 /min Shefali Ashraf weight E&M 242 [lb_av] Shefali Ashraf respiratory rate E&M 12 /min Shefali Ashraf height E&M 67 [in_i] Shefali Ashraf Body Mass Index (Ratio) 36.80 kg/m2 Simba Floyd MD blood pressure, cuff size regular Ja rret blood pressure, diastolic 78 mm[Hg] Ja rret blood pressure, systolic 118 mm[Hg] Jar ret pulse rate 77 /min Valentino respiratory rate E&M 14 /min Valentino oxygen saturation, oximetry 96 % Valentino weight E&M 235 [lb_av] Valentino y height E&M 67 [in_i] Valentino y Body Mass Index (Ratio) 35.86 kg/m2 Simba Floyd MD pulse rate 73 /min Allison Hubbard respiratory rate E&M 18 /min Allison Hubbard blood pressure, diastolic 90 mm[Hg] Gilbert Hubbard blood pressure, systolic 109 mm[Hg] She chante Hubbard oxygen saturation, oximetry 97 % Allison Hubbard blood pressure, cuff size regular anderson Hubbard weight E&M 229 [lb_av] Allison Hubbard height E&M 67 [in_i] Allison Hubbard Body Mass Index (Ratio) 43.85 kg/m2 Simba Floyd MD pulse rate 99 /min Valentino blood pressure, cuff size large [facility], [facility] 85 mm[Hg] Colten unm [facility] blood pressure, systolic 133 mm[Hg] James respiratory rate E&M 12 /min oxygen saturation, oximetry 99 % Valentino weight E&M 280 [lb_av] Valentino y height E&M 67 [in_i] Valentino Body Mass Index (Ratio) 40.56 kg/m2 Mario Maya blood pressure, diastolic 78 mm[Hg] Gildardo Gates blood pressure, systolic 93 mm[Hg] Leanna Gates pulse rate 92 /min Corry Gates oxygen saturation, oximetry 98 % Corry Kody blood pressure, cuff size large An harsha Kody weight E&M 259 [lb_av] Corry Kody height E&M 67 [in_i] Corry Kody Body Mass Index (Ratio) 40.56 kg/m2 Sherry ellis Fede blood pressure, diastolic 76 mm[Hg] Mi bartolome Chino blood pressure, systolic 104 mm[Hg] Bony heldona Magana oxygen saturation, oximetry 98 % Corazon Magana pulse rate 90 /min Corazon holguin weight E&M 259 [lb_av] Corazon holguin respiratory rate E&M 16 /min Traci Magana blood pressure, cuff size large Katlyn mancuso [place] height E&M 67 [in_i] Corazon holguin Body Mass Index (Ratio) 41.81 kg/m2 Sherry caleb Mistry blood pressure, diastolic 86 mm[Hg] [facility] [place] Dave blood pressure, systolic 115 mm[Hg] Sta carlitos Dave oxygen saturation, oximetry 96 % Kate Dave pulse rate 95 /min Katecarlitos Dave respiratory rate E&M 16 /min Kate manrique weight E&M 267 [lb_av] Kate Tenzin height E&M 67 [in_i] Kate Tenzin Body Mass Index (Ratio) 41.66 kg/m2 Sherry ellis Fede blood pressure, diastolic 75 mm[Hg] Ri bartolome Lenard blood pressure, systolic 100 mm[Hg] Bull helle Lenard blood pressure, cuff size large Ri bartolome Weinberg oxygen saturation, oximetry 99 % Rika Weinberg respiratory rate E&M 16 /min Norma Weinberg pulse rate 75 /min Rika alonso weight E&M 266 [lb_av] Rika alonso height E&M 67 [in_i] Rika alonso Body Mass Index (Ratio) 51.93 kg/m2 Simba Sushant Everett JIANG blood pressure, cuff size large Katlyn mancuso [place] blood pressure, diastolic 80 mm[Hg] Katlyn mancuso [place] blood pressure, systolic 132 mm[Hg] Bony chand [place] oxygen saturation, oximetry 98 % Corazon Magana respiratory rate E&M 16 /min Traci jeong Magana pulse rate 95 /min Corazon Cayetano holguin weight E&M 331.6 [lb_av] Corazon Alfred méndez height E&M 67 [in_i] Corazon holguin Body Mass Index (Ratio) 46.82 kg/m2 John Wild blood pressure, cuff size large Brock rri Shima blood pressure, diastolic 70 mm[Hg] Ke rri Gruenenfrick blood pressure, systolic 130 mm[Hg] Bailee Ronquillo oxygen saturation, oximetry 94 % Yasemin Ronquillo respiratory rate E&M 18 /min Yasemin fish pulse rate 80 /min Yasemin Jose Fneselame lder weight E&M 299 [lb_av] Yasemin Gruenenfe lder height E&M 67 [in_i] Yasemin Gruenenfe lder Body Mass Index (Ratio) 51.21 kg/m2 John Wild pulse rate 87 /min Anastasia bliss oxygen saturation, oximetry 97 % Anastasia Boateng respiratory rate E&M 16 /min Anastasia Boateng blood pressure, cuff size regular Cy obdulia Boateng blood pressure, diastolic 76 mm[Hg] Carlitos Boateng blood pressure, systolic 128 mm[Hg] Tawny Boateng weight E&M 327 [lb_av] Anastasia bliss height E&M 67 [in_i] Anastasia bliss Body Mass Index (Ratio) 50.74 kg/m2 John Wild blood pressure, diastolic 80 mm[Hg] Da hira Gaincarlo blood pressure, systolic 122 mm[Hg] Dac ia Giancarlo oxygen saturation, oximetry 93 % Katy Giancarlo respiratory rate E&M 16 /min Katy V oss pulse rate 78 /min Katy Giancarlo weight E&M 324 [lb_av] Katy Giancarlo height E&M 67 [in_i] Katy Giancarlo Body Mass Index (Ratio) 49.17 kg/m2 John Wild blood pressure, resting Yes Simba Floyd MD blood pressure, cuff size regular Ke rri Shima blood pressure, diastolic 88 mm[Hg] Ke rri Shima blood pressure, systolic 127 mm[Hg] Bailee Ronquillo oxygen saturation, oximetry 95 % Yasemin Ronquillo respiratory rate E&M 18 /min Yasemin fish pulse rate 86 /min Yasemin Reyna lder weight E&M 314 [lb_av] Yasemin Reyna lder height E&M 67 [in_i] Yasemin Reyna lder weight E&M 324 [lb_av] Jayashree Avila height E&M 67 [in_i] Jayashree Avila blood pressure, diastolic, left arm 86 mm [Hg] Carla Harrison blood pressure, systolic, left arm 172 mm [Hg] Carla Harrison blood pressure, diastolic, right arm 89 m m[Hg] Carla Harrison blood pressure, systolic, right arm 163 m m[Hg] Carla Harrison blood pressure, diastolic 86 mm[Hg] Mn jamshid [facility] blood pressure, systolic 172 mm[Hg] Nelly fuentes Harrison pulse rate 72 /min Carla Harrison oxygen saturation, oximetry 95 % Carla Harrison respiratory rate E&M 15 /min Carla Harrison Body Mass Index (Ratio) 50.74 kg/m2 [facility] [lb_av] Carla Harrison blood pressure, diastolic, left arm 86 mm [Hg] Carla Wade blood pressure, systolic, left arm 132 mm [Hg] Carla Wade blood pressure, diastolic, right arm 84 m m[Hg] Carla Wade blood pressure, systolic, right arm 144 m m[Hg] Carla Wade Body Mass Index (Ratio) 51.21 kg/m2 [facility] kylie Wade blood pressure, diastolic 84 mm[Hg] Mn jamshid Wade blood pressure, systolic 144 mm[Hg] Nelly Wade pulse rate 85 /min Carla Wade oxygen saturation, oximetry 97 % Carla Wade respiratory rate E&M 18 /min Carla Wade weight E&M 327 [lb_av] Carla Wade weight E&M 302 [lb_av] Jayashree Avila height E&M 67 [in_i] Jayashree Avila Body Mass Index (Ratio) 47.29 kg/m2 Anea daniel Sevilla blood pressure, diastolic, left arm 92 mm [Hg] Aneatris Brown blood pressure, systolic, left arm 152 mm [Hg] Aneatris [facility] blood pressure, diastolic, right arm 93 m m[Hg] Aneatris [facility] blood pressure, systolic, right arm 154 m m[Hg] Aneatris [facility] blood pressure, diastolic 92 mm[Hg] An skye [facility] blood pressure, systolic 152 mm[Hg] Adenike escoto [facility] pulse rate 68 /min Aneatris [facility] oxygen saturation, oximetry 98 % Adenikeatris [facility] respiratory rate E&M 18 /min Aneatri s [facility] weight E&M 302 [lb_av] Daryl Roel blood pressure, diastolic, left arm 96 mm [Hg] Herman Bobby RN blood pressure, systolic, left arm 141 mm [Hg] Herman Bobby RN blood pressure, diastolic, right arm 93 m m[Hg] Herman Bobby RN blood pressure, systolic, right arm 148 m m[Hg] Herman Bobby RN blood pressure, diastolic 96 mm[Hg] Colten Bobby RN blood pressure, systolic 141 mm[Hg] Herman Bobby RN pulse rate 80 /min Herman Bobby RN oxygen saturation, oximetry 96 % Herman Bobby RN respiratory rate E&M 16 /min Herman ortiz RN Body Mass Index (Ratio) 48.73 kg/m2 Herman Bobby RN weight E&M 310 [lb_av] Herman Bobby RN Body Mass Index (Ratio) 47.75 kg/m2 Marcus bass [place] blood pressure, diastolic, left arm 84 mm [Hg] Umair [place] blood pressure, systolic, left arm 130 mm [Hg] Umair [place] blood pressure, diastolic, right arm 86 m m[Hg] Umair [place] blood pressure, systolic, right arm 124 m m[Hg] Umair [place] blood pressure, diastolic 86 mm[Hg] Jessica rojas [place] blood pressure, systolic 124 mm[Hg] Larry lao [place] pulse rate 79 /min Umair [place] oxygen saturation, oximetry 96 % Umair [place] respiratory rate E&M 16 /min Umair [place] weight E&M 303.8 [lb_av] Umair [place] height E&M 67 [in_i] Umair [place] JNC systolic blood pressure goal 148 m m/[Hg] Allison Eugenia CREATIVE SERVICES DIRECTOR blood pressure, cuff size large Sh anderson Rodall CREATIVE SERVICES DIRECTOR blood pressure, diastolic 86 mm[Hg] Sh anderson Rodall CREATIVE SERVICES DIRECTOR blood pressure, systolic 146 mm[Hg] She chante Eugenia CREATIVE SERVICES DIRECTOR pulse rate 72 /min Allison Bello CREATIVE SERVICES DIRECTOR weight E&M 299.6 [lb_av] Allison Bello CREATIVE SERVICES DIRECTOR blood pressure, diastolic, left arm 99 mm [Hg] Herman Bobby RN blood pressure, systolic, left arm 151 mm [Hg] Herman Bobby RN blood pressure, diastolic, right arm 99 m m[Hg] Herman Bobby RN blood pressure, systolic, right arm 159 m m[Hg] Herman Bobby RN blood pressure, diastolic 99 mm[Hg] Colten Bobby RN blood pressure, systolic 151 mm[Hg] Herman Bobby RN pulse rate 81 /min Herman Bobby RN oxygen saturation, oximetry 97 % Herman Bobby RN respiratory rate E&M 16 /min Herman ortiz RN weight E&M 308 [lb_av] Herman Bobby RN blood pressure, diastolic, left arm 93 mm [Hg] Binu Vaughan blood pressure, systolic, left arm 148 mm [Hg] Binu Vaughan blood pressure, diastolic, right arm 89 m m[Hg] Binu Vaughan blood pressure, systolic, right arm 146 m m[Hg] Binu Vaughan blood pressure, diastolic 93 mm[Hg] Avila Vaughan blood pressure, systolic 148 mm[Hg] Sadi hatfield Vaughan pulse rate 78 /min Binu Vaughan oxygen saturation, oximetry 98 % Binu Vaughan respiratory rate E&M 16 /min Sadimeleciogildardo Vaughan weight E&M 193 [lb_av] Binu Vaughan blood pressure, diastolic, left arm 99 mm [Hg] Herman Bobby RN blood pressure, systolic, left arm 174 mm [Hg] Herman Bobby RN blood pressure, diastolic, right arm 89 m m[Hg] Herman Bobby RN blood pressure, systolic, right arm 166 m m[Hg] Herman Bobby RN blood pressure, diastolic 89 mm[Hg] Colten Bobby RN blood pressure, systolic 166 mm[Hg] Herman Bobby RN pulse rate 82 /min Herman Bobby RN oxygen saturation, oximetry 96 % Herman Bobby RN respiratory rate E&M 18 /min Herman ortiz RN weight E&M 304 [lb_av] Herman Bboby RN blood pressure, diastolic 81 mm[Hg] Colten Bobby RN blood pressure, systolic 132 mm[Hg] Herman Bobby RN pulse rate 84 /min Herman Bobby RN oxygen saturation, oximetry 97 % Herman Bobby RN respiratory rate E&M 18 /min Herman ortiz RN weight E&M 290 [lb_av] Herman Bobby RN weight E&M 303 [lb_av] Jayashree Avila height E&M 67 Jayashree Avila blood pressure, diastolic, left arm 82 mm [Hg] Herman Bobby RN blood pressure, systolic, left arm 127 mm [Hg] Herman Bobby RN blood pressure, diastolic, right arm 99 m m[Hg] Herman Bobby RN blood pressure, systolic, right arm 148 m m[Hg] Herman Bobby MICHAEL blood pressure, diastolic 82 mm[Hg] Colten messer Bobby RN blood pressure, systolic 127 mm[Hg] Herman Bobby MICHAEL pulse rate 80 /min Herman Bobby MICHAEL oxygen saturation, oximetry 99 % Herman Kunzalyssa RODRIGUEZ respiratory rate E&M 20 /min Herman ortiz RN weight E&M 303 [lb_av] Herman Bobby MICHAEL blood pressure, diastolic 96 mm[Hg] Colten messer Bobby RN blood pressure, systolic 147 mm[Hg] Herman Kunzalyssa RODRIGUEZ pulse rate 97 /min Herman Kunzalyssa RODRIGUEZ oxygen saturation, oximetry 97 % Herman Bobby MICHAEL respiratory rate E&M 18 /min Herman ortiz RN weight E&M 314 [lb_av] Herman Kunzalyssa RODRIGUEZ blood pressure, diastolic 78 mm[Hg] Alan Spivey blood pressure, systolic 148 mm[Hg] Melissa pulse rate 84 /min Gale Spivey oxygen saturation, oximetry 97 % Gale Spivey respiratory rate E&M 18 /min Gale dykes weight E&M 320 [lb_av] Gale Spivey ALLERGIES No Known Drug Allergies RESULTS Date Observation Value Provider Reference Range Interpretation Location thyroid stimulating hormone, serum 0.28 u[IU]/mL [facility] 0.40-4.50 Low thyroxine, serum, free 2.4 ng/dL [facility] 0.8-1.8 High alanine aminotransferase (SGPT), serum 16 1/L [facility] 6-29 Normal aspartate aminotransferase (SGOT), serum 18 1/L [facility] 10-35 Normal alkaline phosphatase, serum 62 1/L [facility] 37-153 Normal bilirubin, serum, indirect 0.6 MG/DL (CALC) [facility] 0.2-1.2 Normal bilirubin, serum, direct 0.2 mg/dL [facility] < OR = 0.2 Normal bilirubin, serum, total 0.8 mg/dL [facility] 0.2-1.2 Normal albumin/globulin ratio, serum 1.3 (calc) [facility] 1.0-2.5 Normal globulins, serum, total 3.1 G/DL (CALC) [facility] 1.9-3.7 Normal albumin, serum 4.1 g/dL [facility] 3.6-5.1 Normal protein, total, serum 7.2 g/dL [facility] 6.1-8.1 Normal hemoglobin A1C, blood, as % of total hemoglobin 14.2 % [facility] iron saturation percent, serum 29 % [facility] iron binding capacity, total 321 ug/dL [facility] iron, serum 94 ug/dL [facility] ferritin, serum 159 ng/mL [facility] platelet count 251 10*3/uL [facility] red blood cell distribution width 13.2 % [facility] mean corpuscular hemoglobin concentration, RBC 31.4 g/dL [facility] mean corpuscular hemoglobin, RBC 29.5 pg [facility] mean corpuscular volume, RBC 94.2 fL [facility] hematocrit, blood 38.9 % [facility] hemoglobin, blood 12.2 g/dL [facility] erythrocyte (RBC) count 4.13 10*6/mm3 [facility] leukocyte count, blood 8.2 10*3/mm3 [facility] LDL cholesterol, serum 89 mg/dL [facility] pro brain natriuretic peptide 682 pg/mL [facility] 0-249 High calcium, serum 9.2 mg/dL [facility] 8.7-10.2 carbon dioxide, venous blood 25 mmol/L [facility] 20-29 chloride, serum 104 mmol/L [facility] 96-106 potassium, serum 4.5 mmol/L [facility] 3.5-5.2 sodium, serum 148 mmol/L [facility] 134-144 High urea nitrogen/creatinine ratio, serum 18 [facility] 9-23 eGFR if 70 mL/min/{1 .73_m2} [facility] >59 eGFR if not 61 mL/min/{1 .73_m2} [facility] >59 creatinine, serum 1.04 mg/dL [facility] 0.57-1.00 High urea nitrogen, blood 19 mg/dL [facility] 6-24 blood glucose, random 157 mg/dL [facility] 65-99 High urea nitrogen/creatinine ratio, serum 10.8 [facility] - Estimated Glomerular Filtration Rate (calc) 50.5 (?) [facility] 59.0 - Low chloride, serum 97.8 mmol/L [facility] 98.0 - 107.0 Low potassium, serum 4.4 mmol/L [facility] 3.5 - 5.1 sodium, serum 138.0 mmol/L [facility] 136.0 - 145.0 creatine, serum 1.2 mg/dL [facility] 0.5 - 0.9 High carbon dioxide, venous blood 30.0 mmol/L [facility] 22.0 - 29.0 High calcium, serum 9.3 mg/dL [facility] 8.6 - 10.2 urea nitrogen, blood 13.0 mg/dL [facility] 6.0 - 20.0 Glucose Urine 137.0 mg/dL [facility] 74.0 - 99.0 High triglyceride, serum, fasting 122 mg/dL Herman Bobby RN HDL cholesterol, serum 33 mg/dL Herman Bobby RN LDL cholesterol, serum 95 mg/dL Herman Bobby RN cholesterol, serum 152 mg/dL Herman Bobby RN HISTORY OF MEDICATION USE Medication Status Instructions Dates Provider Indications [facility] amiodarone 200 mg tablet active TAKE 1 TABLET BY MOUTH TWICE A DAY Yasemin Ronquillo cholecalciferol (vitamin D3) 50 mcg (2,000 unit) capsule active TAKE 1 CAPSULE (2,000 UNITS TOTAL) BY MOUTH ONCE DAILY Simba Floyd MD rosuvastatin 10 mg tablet active Simba Floyd MD carvedilol 3.125 mg tablet active Take 1 tablet by mouth twice daily Simba Floyd MD Entresto 49-51 mg tablet active TAKE 1 TABLET BY MOUTH TWICE DAILY Zarina [place] BADILLO Farxiga 10 mg tablet active Zarina BADILLO ergocalciferol (vitamin D2) 1,250 mcg (50,000 unit) capsule active Zarina BADILLO magnesium oxide 400 mg (241.3 mg magnesium) tablet active TAKE 1 TABLET BY MOUTH TWICE A DAY Zarina BADILLO amiodarone 200 mg tablet completed Take 1 tablet by mouth once a day - Yasemin Ronquillo Corlanor 5 mg tablet completed Take 1 tablet by mouth twice a day - Zarina BADILLO Jardiance 10 mg tablet completed TAKE 1 TABLET BY MOUTH EVERY DAY - Zarina ARREDONDOP Percocet 5-325 mg tablet completed Take 1 tablet by mouth every eight hours as needed for pain do not drive or fly for 24 after taking this medication, do not take tramadol - Simba Floyd MD cephalexin 500 mg capsule completed Take 1 capsule by mouth three times a day - Zarina Wademigldale BADILLO carvedilol 3.125 mg tablet completed Take 1 tablet by mouth twice a day - Zarinanoel Wademiglia HEAD CHAR FILTER TANK TENDER Entresto 49-51 mg tablet completed TAKE 1 TABLET BY MOUTH TWICE DAILY * PLEASE SCHEDULE FOLLOW UP APPOINTMENT * - Zarina Stearns HEAD [employer] TANK TENDER Ozempic 1 mg/dose (4 mg/3 mL) pen injector active Simba Floyd MD rosuvastatin 20 mg tablet completed - Simba Floyd MD Entresto 49-51 mg tablet completed Take 1 tablet by mouth twice daily 05/21/22 please schedule follow up appointment - Rosalinda Case spironolactone 25 mg tablet completed TAKE 1 TABLET BY MOUTH EVERY DAY - Simba Floyd MD carvedilol 25 mg tablet completed TAKE 1 TABLET BY MOUTH TWICE A DAY - Simba Floyd MD furosemide 40 mg tablet active 1 tablet by mouth once a day Simba Floyd MD glimepiride 4 mg tablet completed Take 1 tablet by mouth twice a day - Simba Floyd MD metformin 1,000 mg tablet completed TAKE 1 TABLET BY MOUTH TWICE DAILY - Roxana Saavedra FUROSEMIDE 20 MG TABS completed TAKE ONE TABLET BY MOUTH ONCE DAILY - Anastasia Boateng Entresto 49-51 mg tablet completed Take 1 tablet by mouth twice daily - Simba Floyd MD QSYMIA 7.5-46 MG ORAL CAPSULE EXTENDED RELEASE 24 HOUR completed one tablet daily - Yasemin Ronquillo QSYMIA 3.75-23 MG ORAL CAPSULE EXTENDED RELEASE 24 HOUR completed one tablet daily - Yasemin Ronquillo Aldactone 25 mg tablet completed Take 1 tablet by mouth once a day - Simba Floyd MD AMBIEN 10 MG ORAL TABLET completed ONE TAB. AT BEDTIME - Binu Goodmanran Coreg 25 mg tablet completed Take 1 tablet by mouth twice a day - Simba Floyd MD Lasix 40 mg tablet completed Take 1 tablet by mouth once a day - Simba Floyd MD COREG 6.25 MG ORAL TABLET completed ONE TAB. TWICE DAILY - Simba Floyd MD LISINOPRIL 10 MG ORAL TABLET completed ONE TAB. DAILY - Gale Spivey COZAAR 100 MG ORAL TABLET completed ONE TAB. DAILY - Simba Floyd MD SOCIAL HISTORY Date Observation Value Provider personal history of marijuana use no Simba Floyd MD drug use no Simba Floyd MD alcohol use no Simba Floyd MD passive cigarette sm octavia exposure no Simba Floyd MD chewing tobacco use Never Simba childs MD smoking status Never smoker Simba Holguin personal history of marijuana use no Simba Floyd MD drug use no Simba Floyd MD alcohol use no Simba Folyd MD passive cigarette sm octavia exposure no Simba Floyd MD chewing tobacco use Never Simba childs MD smoking status Never smoker Simba Holguin personal history of marijuana use no Zarina Ventimiglia [facility] drug use no Zarina Ventimig dorene [facility] alcohol use no Zarina Ventimig dorene [facility] passive cigarette sm octavia exposure no Zarina Ventimiglia [facility] chewing tobacco use Never Zarina V [facility]imiglia [facility] [facility] smoking status Never smoker Zarina Ventim iglia [facility] physical exercise, frequency, days per week no Simba Floyd MD caffeine use, averag e drinks per day 0 /d Simba Floyd MD passive cigarette sm octavia exposure no Simba Floyd MD chewing tobacco use Never Simba childs MD smoking status Never smoker Simba Holguin social history reviewed E&M revi ewed - no changes required Simba Floyd MD social history reviewed E&M revwilliams ewed - no changes required Simba Floyd MD social history E&M Marital Statu s: Single L beau with family/friends E thnicity: Smoking History: Sha cam has never smoked. Naldo Maya social history reviewed E&M revi ewed - no changes required Naldo Maya physical exercise, frequency, days per week no Corry Kody caffeine use, averag e drinks per day 0 /d Corry Kody passive cigarette sm octavia exposure no Corrycarlyn Gates chewing tobacco use Never Corry Elmer ogden smoking status Never smoker Corry Kody social history E&M Marital Statu s: Single L beau with family/friends E thnicity: Smoking History: Sha cam has never smoked. Simba Floyd MD [id number]|2024-12-12 16:18:29|2024-12-12 16:18:29|PM.IMPN||||"Progress Note: A&P Assessment and Plan (1) Ventricular tachycardia: Code(s): I47.20 - Ventricular tachycardia, unspecified Status: Acute Assessment and Plan: Cardiology consulted pending recommendations Recommend Coreg Q 8 instead of b.i.d. Admit to IMU Replete electrolytes as needed front desk monitor Continue home amiodarone (2) Pneumonia: Qualifiers: Pneumonia type: due to unspecified organism Code(s): J18.9 - Pneumonia, unspecified organism Status: Acute Assessment and Plan: Continue Rocephin, azithromycin change doxycycline due to patient being on amiodarone And a guaifenesin EKG in a.m. to check QTC (3) Hyperlipidemia: Code(s): E78.5 - Hyperlipidemia, unspecified Status: Acute Assessment and Plan: Continue statin (4) DM2 (diabetes mellitus, type 2): Code(s): E11.9 - Type 2 diabetes mellitus without complications Status: Acute Assessment and Plan: Hold home of Amy while in hospital Diabetic diet SSI Plan 59 y/o female with history of cardiomyopathy had URI and took OTC decongestion wich triggered ventricular tachy fibrillation and she had a defibrillator shock of 40 joules and converted AV paced, patient is placed ib amiodarone 200mg PO BID to suppress vertical fibrillation, no clinically stable has no complaints of CP, patient will need to follow up with her primary adjunct art 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 Subjective Date/time seen: 12/12/24 16:18 Interval history: 59 y/o female with history of cardiomyopathy had URI and took OTC decongestion wich triggered ventricular tachy fibrillation and she had a defibrillator shock of 40 joules and converted AV paced, patient is placed ib amiodarone 200mg PO BID to suppress vertical fibrillation, no clinically stable has no complaints of CP, patient will need to follow up with her primary adjunct art 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 Review of Systems Review of Systems: 12 systems were reviewed and are negative except for as per HPI. Exam Narrative: Patient is comfortable, NAD HEENT: eyes are clear and none icteric LUNGS:CTA HEART: RR S1S2 ABD: BS+, Soft and nontender Lower extremities: no edema SKIN: nonjaundiced Neuro: grossly intact. Objective Data Vital Signs Vital Signs: Vital Signs - 24 hr 12/11/24 17:00 12/11/24 18:07 12/11/24 18:32 Temperature Pulse Rate 81 80 79 Respiratory Rate 19 19 Blood Pressure 110/96 H 99/56 L Pulse Oximetry 95 95 Oxygen Delivery 12/11/24 18:50 12/11/24 18:59 12/11/24 19:35 Temperature 36.8 C 36.9 C 36.9 C Pulse Rate 86 84 79 Respiratory Rate 19 18 17 Blood Pressure 104/58 L 104/57 L 128/54 L Pulse Oximetry 97 93 95 Oxygen Delivery 12/11/24 20:00 12/11/24 20:00 12/11/24 20:43 Temperature Pulse Rate 76 86 Respiratory Rate Blood Pressure Pulse Oximetry Oxygen Delivery Room Air 12/11/24 22:00 12/11/24 23:29 12/12/24 00:00 Temperature 36.4 C L Pulse Rate 77 71 Respiratory Rate 17 Blood Pressure 85/49 L Pulse Oximetry 94 Oxygen Delivery Room Air 12/12/24 00:00 12/12/24 00:37 12/12/24 02:00 Temperature Pulse Rate 77 72 Respiratory Rate Blood Pressure 102/52 L Pulse Oximetry Oxygen Delivery 12/12/24 03:44 12/12/24 04:00 12/12/24 04:00 Temperature 36.5 C Pulse Rate 77 Respiratory Rate 18 Blood Pressure 94/62 L Pulse Oximetry 95 Oxygen Delivery Room Air 12/12/24 05:53 12/12/24 06:00 12/12/24 07:53 Temperature 36.9 C Pulse Rate 77 75 76 Respiratory Rate 18 Blood Pressure 102/44 L Pulse Oximetry 94 Oxygen Delivery 12/12/24 08:00 12/12/24 08:00 12/12/24 08:49 Temperature Pulse Rate 76 80 78 Respiratory Rate 18 Blood Pressure Pulse Oximetry 94 Oxygen Delivery Room Air 12/12/24 10:00 12/12/24 11:40 12/12/24 12:00 Temperature 36.9 C Pulse Rate 73 70 70 Respiratory Rate 20 20 Blood Pressure 125/57 L Pulse Oximetry 95 95 Oxygen Delivery Room Air 12/12/24 12:00 12/12/24 13:44 12/12/24 16:01 Temperature 36.7 C Pulse Rate 79 76 80 Respiratory Rate 20 Blood Pressure 125/57 L Pulse Oximetry 96 Oxygen Delivery Intake/Output Intake/Output: Intake & Output 12/09/24 12/10/24 12/11/24 12/12/24 23:59 23:59 23:59 23:59 Intake Total 1300 480 Balance 1300 480 Meds/Results Medications: Active Medications Generic Name Dose Route Start Last Admin Trade Name Freq PRN Reason Stop Dose Admin Acetaminophen 650 mg 12/11/24 17:16 Acetaminophen 325 Mg Tablet PO Q4H PRN Mild Pain (1-3) or Fever Amiodarone HCl 200 mg 12/12/24 09:00 12/12/24 08:49 Amiodarone Hcl 200 Mg Tablet PO 200 mg BIDWM NEMESIO Administration Aspirin 81 mg 12/12/24 09:00 12/12/24 08:49 Aspirin 81 Mg Enteric Tablet PO 81 mg QAM NEMESIO Administration Brimonidine Tartrate 1 drop 12/12/24 09:00 12/12/24 09:09 Brimonidine Tartrate 0.15% 5 Ml Ophth Soln EACH EYE 1 drop BID NEMESIO Administration Carvedilol 3.125 mg 12/11/24 22:00 12/12/24 13:44 Carvedilol 3.125 Mg Tablet PO 3.125 mg Q8HR NEMESIO Administration Dextrose 12.5 gm 12/11/24 17:18 Dextrose 50% 25 Gm/50 Ml Syringe IV PUSH PRN PRN Hypoglycemia Protocol Dorzolamide HCl 1 drop 12/12/24 09:00 12/12/24 09:09 Dorzolamide Hcl 2% Ophth Drops EACH EYE 1 drop DAILY NEMESIO Administration Doxycycline Hyclate 100 mg 12/12/24 09:00 12/12/24 08:49 Doxycycline Hyclate 100 Mg Tablet PO 100 mg Q12HR NEMESIO Administration Enoxaparin Sodium 40 mg 12/12/24 09:00 12/12/24 08:48 Enoxaparin 40 Mg/0.4 Ml Syringe SUB-Q 40 mg DAILY NEMESIO Administration Furosemide 40 mg 12/12/24 09:00 12/12/24 08:49 Furosemide 40 Mg Tablet PO 40 mg DAILY NEMESIO Administration Glucagon 1 mg 12/11/24 17:18 Glucagon For Inj 1 Mg Vial IM PRN PRN Hypoglycemia Protocol Glucose 15 gm 12/11/24 17:18 Glucose Oral Gel 15 Gm Of Glucse In 37.5 Gm Tube PO PRN PRN Hypoglycemia Protocol Guaifenesin/Dextromethorphan 10 ml 12/11/24 18:00 12/12/24 13:43 Guaifenesin/Dextromethorphan 10 Ml Udc PO 10 ml Q4H [facility] Administration Dextrose 1,000 mls @ 100 mls/hr 12/11/24 17:18 Dextrose 5% 1,000 Ml IVPB PRN PRN Hypoglycemia Protocol Ceftriaxone Sodium 1 gm in 50 mls @ 100 mls/hr 12/12/24 17:00 Rocephin 1 Gm/Ns 50 Ml IVPB Q24H [facility] Insulin Aspart 2 - 5 units 12/12/24 08:00 12/12/24 12:02 Insulin Aspart (*Bkc) 100 Units/Ml SUB-Q Not Given TIDWM [facility] Protocol Insulin Aspart 1 - 2 units 12/11/24 21:00 12/11/24 20:43 Insulin Aspart (*Bkc) 100 Units/Ml SUB-Q Not Given HS [facility] Protocol Rosuvastatin Calcium 10 mg 12/12/24 09:00 12/12/24 08:48 Rosuvastatin 10 Mg Tablet PO 10 mg DAILY NEMESIO Administration Sacubitril/Valsartan 1 tablet 12/11/24 22:35 12/12/24 08:48 Sacubitril/Valsartan 49-51 Mg Tablet PO 1 tablet Q12HR NEMESIO Administration Radiology Results: ITS Impressions Chest X-Ray 12/11/24 15:03 IMPRESSION: Cardiomegaly with cardiac decompensation and pulmonary edema. Superimposed pneumonia cannot be excluded. Labs Labs: Laboratory Results - last 24 hr 12/11/24 12/11/24 12/11/24 15:09 15:10 16:17 WBC RBC Hgb Hct MCV MCH MCHC RDW Plt Count MPV Immature Gran % (Auto) Neut % (Auto) Lymph % (Auto) [place] % (Auto) Eos % (Auto) Baso % (Auto) Lymph # (Auto) [place] # (Auto) Eos # (Auto) Baso # (Auto) Abs Immat Gran (auto) Absolute Neuts (auto) Absolute Nucleated RBC Nucleated RBC % PT 16.1 H INR 1.3 APTT 33.3 Sodium Potassium Chloride Carbon Dioxide Anion Gap BUN Creatinine Estim Creat Clear Calc Estimated GFR Glucose POC Capillary Glucose Lactic Acid 0.9 Calcium Phosphorus 3.8 Magnesium 1.9 Troponin I 12/11/24 12/11/24 12/11/24 17:47 18:21 20:42 WBC RBC Hgb Hct MCV MCH MCHC RDW Plt Count MPV Immature Gran % (Auto) Neut % (Auto) Lymph % (Auto) [place] % (Auto) Eos % (Auto) Baso % (Auto) Lymph # (Auto) [place] # (Auto) Eos # (Auto) Baso # (Auto) Abs Immat Gran (auto) Absolute Neuts (auto) Absolute Nucleated RBC Nucleated RBC % PT INR APTT Sodium Potassium Chloride Carbon Dioxide Anion Gap BUN Creatinine Estim Creat Clear Calc Estimated GFR Glucose POC Capillary Glucose 80 112 H Lactic Acid Calcium Phosphorus Magnesium Troponin I 0.015 D 12/11/24 12/12/24 12/12/24 23:29 03:49 07:28 WBC 8.3 RBC 3.60 L Hgb 10.6 L Hct 33.9 L MCV 94.2 MCH 29.4 MCHC 31.3 L RDW 14.0 Plt Count 340 MPV 9.2 Immature Gran % (Auto) 0.5 Neut % (Auto) 65.1 Lymph % (Auto) 19.1 [place] % (Auto) 10.8 H Eos % (Auto) 3.5 Baso % (Auto) 1.0 Lymph # (Auto) 1.58 [place] # (Auto) 0.9 H Eos # (Auto) 0.3 Baso # (Auto) 0.1 Abs Immat Gran (auto) 0.04 H Absolute Neuts (auto) 5.4 Absolute Nucleated RBC 0.000 Nucleated RBC % 0.0 PT INR APTT Sodium 141 Potassium 3.1 L Chloride 107 Carbon Dioxide 25 Anion Gap 9 BUN 14 Creatinine 0.98 Estim Creat Clear Calc 66 Estimated GFR 58 L Glucose 89 POC Capillary Glucose 96 Lactic Acid Calcium 8.3 L Phosphorus Magnesium Troponin I 0.021 D 12/12/24 12/12/24 11:21 15:21 WBC RBC Hgb Hct MCV MCH MCHC RDW Plt Count MPV Immature Gran % (Auto) Neut % (Auto) Lymph % (Auto) [place] % (Auto) Eos % (Auto) Baso % (Auto) Lymph # (Auto) [place] # (Auto) Eos # (Auto) Baso # (Auto) Abs Immat Gran (auto) Absolute Neuts (auto) Absolute Nucleated RBC Nucleated RBC % PT INR APTT Sodium Potassium Chloride Carbon Dioxide Anion Gap BUN Creatinine Estim Creat Clear Calc Estimated GFR Glucose POC Capillary Glucose 111 H 103 Lactic Acid Calcium Phosphorus Magnesium Troponin I Quality VTE Prophylaxis VTE prophylaxis: mechanical ordered and pharmacologic ordered"
--- OUTSIDE RECORDS SUMMARY | 2024-12-11 13:21 | XMS_ITS | Data Portability ---
Author Organization [place] - [facility] [employer], Main Office Address [address] [place] [address] Assessment No assessment recorded. Plan of Treatment Reminders Order Date Submit Date Provider Last Modified By Organization Details Last Modified Time Details Appointments Any 15 2024 09:15A Sushant Fleming MD Not available Not available Not available Lab noninvasi ve colorecta l cancer DNA + occult blood screening , QL, stool 2023 024 [place] [address] [facility] (Cologuard Orders Only), [address], [address], [place], [address], 04/04/2024 11:10:14 unlisted lab - CBC study [address] (Lab), [address] [place], [address], 08/04/2023 09:28:49 vitamin D, 25-hydrox y, total, serum [address] (Lab), [address] [place], [address], 07/19/2023 11:32:09 glycohemo globin, total, blood 2022 023 [facility] (Lab), [address] [place], [address], 07/10/2023 10:17:40 CMP, serum or plasma 2022 023 [facility] (Lab), [address] [place], [address], 07/09/2023 22:08:35 microalbu min, urine 2022 023 [facility] (Lab), [address] [place], [address], 07/09/2023 21:27:19 lipid panel, serum 2022 023 [facility] (Lab), [address] [place], [address], 07/09/2023 22:08:40 glycohemo globin, total, blood 2022 023 [facility] (Lab), [address] [place], [address], 02/19/2023 20:32:46 BMP, serum or plasma 2022 023 [facility] (Lab), [address] [place], [address], 02/19/2023 19:56:03 Referral sleep medicine referral - Please call patient to schedule an appointme nt. Thank you. 2024 025 [facility], [address] [place], [address], 11/27/2024 14:30:23 Procedures None recorded. Surgeries None recorded. Imaging MAMMO, screening , digital, bilateral - Please call patient to schedule. 2024 025 [facility], [address] [facility], [place], [address], 12/05/2024 11:10:10 bone density - Please call patient to schedule. 2024 025 [facility], [address] [facility] [address] [place] [address], [address], 11/28/2024 15:48:37 MAMMO, screening , digital, bilateral - Please call patient to schedule. 2023 024 [email or web address] [facility], [address], [place], [address], 05/24/2024 08:14:15 bone density 2023 024 [email or web address] Not available 04/04/2024 11:09:43 Medication Orders Ozempic 2 mg/dose (8 mg/3 mL) subcutane ous pen injector 2023 024 [email or web address] [facility] [id number], [address], 06/23/2024 16:22:27 Farxiga 10 mg tablet 2022 023 [id number] [facility], [address] [place] [address], [address], 04/27/2024 14:30:14 Farxiga 10 mg tablet 2022 023 [email or web address] [facility] [address], [address], 02/19/2023 12:26:00 Patient TargetsNo targets recorded. Patient InstructionsNo instructions recorded. Reason for Referral Sleep Medicine Referral for Sleep apnea Please call patient to schedule an appointment. Thank you. Referring Physician: Savage Fleming, Internal Medicine, Encounter Date: 11/27/2024 Results Created Date Observation Date Name Description Value Unit Range Abnormal Flag Note LastModifiedBy Organization Detail LastModifiedTime 02/20/2002/19/2023 BASIC METAB OLIC PANEL sodium 141 mmol/ L 137-14 5 Not Available [facility] (Lab) [address] [place], [address], 02/19/2023 19:56:03 02/20/20 23 02/19/2023 BASIC METAB OLIC PANEL potassium 4.0 mmol/ L 3.5-5. 1 Not Available [facility] (Lab) [address] [place], [address], 02/19/2023 19:56:03 02/20/20 23 02/19/2023 BASIC METAB OLIC PANEL chloride 102 mmol/ L 98-107 Not Available [facility] (Lab) [address] [place], [address], 02/19/2023 19:56:03 02/20/20 23 02/19/2023 BASIC METAB OLIC PANEL carbon dioxide 26 mmol/ L 22-30 Not Available [facility] (Lab) [address] [place], [address], 02/19/2023 19:56:03 02/20/20 23 02/19/2023 BASIC METAB OLIC PANEL anion gap 17.0 mmol/ L 14-22 Not Available [facility] (Lab) [address] [place], [address], 02/19/2023 19:56:03 02/20/20 23 02/19/2023 BASIC METAB OLIC PANEL glucose 103 mg/dL 70-99 high Not Available [facility] (Lab) [address] [place], [address], 02/19/2023 19:56:03 02/20/20 23 02/19/2023 BASIC METAB OLIC PANEL BUN 18 mg/dL 8-19 Not Available [facility] (Lab) [address] [place], [address], 02/19/2023 19:56:03 02/20/20 23 02/19/2023 BASIC METAB OLIC PANEL creatinine 1.19 mg/dL 0.66-1 .25 Not Available [facility] (Lab) [address] [place], [address], 02/19/2023 19:56:03 02/20/20 23 02/19/2023 BASIC METAB OLIC PANEL GFR 56 Refer ence Range : [place] GFR Healt hy Adult : >60 mL/mi n/1.7 3 m2 Chron ic Kidne y Disea se: 15-60 mL/mi n/1.7 3 m2 Kidne y Failu re: <15/m L/min /1.73 m2 www.n iddk. [facility].g ov The MDRD study equat ion has not been valid ated in child maría elena <18 years of age; pregn ant women ; the elder ly >85 years of age; or in some racia l or ethni c subgr oups, such as Hispa nics. Outsi de the valid ated lynette eters , estim ated GFR is less accur ate, requi ring clini jimbo judgm ent on a case- by-ca se basis . Clini jimbo inter preta tion for other races and ages must be made by the clini angelito. The MDRD study equat ion has not been valid ated for the evalu ation of serum creat inine relat ed to nutri michael l statu s or medic ation usage . For perso ns <18 years of age, a pedia tric GFR calcu lator is avail able on the [facility] websi te: https ://stephen uribe.arturo buitrago.o ralph/pr kar tobaral s/kdo qi/gf r_cal culat or Not Available [facility] (Lab) [address] [place], [address], 02/19/2023 19:56:03 02/20/20 23 02/19/2023 BASIC METAB OLIC PANEL calcium 8.6 mg/dL 8.4-10 .2 Not Available [facility] (Lab) [address] [place], [address], 02/19/2023 19:56:03 02/20/20 23 02/19/2023 HEMOG LOBIN A1C HA1C 6.5 % 4.0-6. 0 high Diabe matthew Scree sandie Crite placido: <5.7% Consi stent with absen ce of diabe matthew 5.7-6 .4% Consi stent with incre ased risk for diabe matthew (pred iabet es) >OR=6 .5% Consi stent with diabe matthew REFER ENCE: Diabe matthew Care 2015, 39(Amaya ppl.1 ):s13 -s22 Not Available [facility] (Lab) [address] [place], [address], 02/19/2023 20:32:46 07/09/20 23 07/09/2023 CBC/C OMPLE TE BLD COUNT W/DIF F white blood cells 3.1 x10'3 /uL 4.2-10 .8 low Not Available [facility] (Lab) [address] [place], [address], 07/09/2023 20:39:23 07/09/20 23 07/09/2023 CBC/C OMPLE TE BLD COUNT W/DIF F red blood cells 4.48 x10'6 /uL 3.80-5 .20 Not Available [facility] (Lab) [address] [place], [address], 07/09/2023 20:39:23 07/09/20 23 07/09/2023 CBC/C OMPLE TE BLD COUNT W/DIF F hemoglobin 13.4 g/dL 12.0-1 5.6 Not Available [facility] (Lab) [address] [place], [address], 07/09/2023 20:39:23 07/09/20 23 07/09/2023 CBC/C OMPLE TE BLD COUNT W/DIF F hematocrit 43.2 % 35.7-4 5.7 Not Available [facility] (Lab) [address] [place], [address], 07/09/2023 20:39:23 07/09/20 23 07/09/2023 CBC/C OMPLE TE BLD COUNT W/DIF F mean red cell volume 96.4 fL 82.0-9 9.0 Not Available [facility] (Lab) [address] [place], [address], 07/09/2023 20:39:23 07/09/20 23 07/09/2023 CBC/C OMPLE TE BLD COUNT W/DIF F mean red cell hemoglobin 29.9 pg 27.0-3 3.0 Not Available [facility] (Lab) [address] [place], [address], 07/09/2023 20:39:23 07/09/20 23 07/09/2023 CBC/C OMPLE TE BLD COUNT W/DIF F mean RBC HGB concentratio n 31.0 g/dL 31.0-3 6.0 Not Available [facility] (Lab) [address] [place], [address], 07/09/2023 20:39:23 07/09/20 23 07/09/2023 CBC/C OMPLE TE BLD COUNT W/DIF F red cell distribution width 16.0 % 11.8-1 5.5 high Not Available [facility] (Lab) [address] [place], [address], 07/09/2023 20:39:23 07/09/20 23 07/09/2023 CBC/C OMPLE TE BLD COUNT W/DIF F platelets 262 x10'3 /uL 150-40 0 Not Available [facility] (Lab) [address] [place], [address], 07/09/2023 20:39:23 07/09/20 23 07/09/2023 CBC/C OMPLE TE BLD COUNT W/DIF F mean platelet volume 10.3 fL 9.0-12 .4 Not Available [facility] (Lab) [address] [place], [address], 07/09/2023 20:39:23 07/09/20 23 07/09/2023 CBC/C OMPLE TE BLD COUNT W/DIF F neutrophils 51.8 % 39.0-7 2.0 Not Available [facility] (Lab) [address] [place], [address], 07/09/2023 20:39:23 07/09/20 23 07/09/2023 CBC/C OMPLE TE BLD COUNT W/DIF F lymphocytes 25.7 % 16.0-4 7.0 Not Available [facility] (Lab) [address] [place], [address], 07/09/2023 20:39:23 07/09/20 23 07/09/2023 CBC/C OMPLE TE BLD COUNT W/DIF F monocytes 10.1 % 5.0-12 .0 Not Available [facility] (Lab) [address] [place], [address], 07/09/2023 20:39:23 07/09/20 23 07/09/2023 CBC/C OMPLE TE BLD COUNT W/DIF F eosinophils 9.8 % 1.0-7. 0 high Not Available [facility] (Lab) [address] [place], [address], 07/09/2023 20:39:23 07/09/20 23 07/09/2023 CBC/C OMPLE TE BLD COUNT W/DIF F basophils 2.3 % 0.0-2. 0 high Not Available [facility] (Lab) [address] [place], [address], 07/09/2023 20:39:23 07/09/20 23 07/09/2023 CBC/C OMPLE TE BLD COUNT W/DIF F immature granulocytes 0.3 % 0.00-0 .50 Not Available [facility] (Lab) [address] [place], [address], 07/09/2023 20:39:23 07/09/20 23 07/09/2023 CBC/C OMPLE TE BLD COUNT W/DIF F neutrophils, absolute count 1.59 x10'3 /uL 1.5-8. 0 Not Available [facility] (Lab) [address] [place], [address], 07/09/2023 20:39:23 07/09/20 23 07/09/2023 CBC/C OMPLE TE BLD COUNT W/DIF F lymphocytes, absolute count 0.79 x10'3 /uL 1.07-3 .43 low Not Available [facility] (Lab) [address] [place], [address], 07/09/2023 20:39:23 07/09/20 23 07/09/2023 CBC/C OMPLE TE BLD COUNT W/DIF F monocytes, absolute count 0.31 x10'3 /uL 0.29-0 .99 Not Available [facility] (Lab) [address] [place], [address], 07/09/2023 20:39:23 07/09/20 23 07/09/2023 CBC/C OMPLE TE BLD COUNT W/DIF F eosinophils, absolute count 0.30 x10'3 /uL 0.02-0 .53 Not Available [facility] (Lab) [address] [place], [address], 07/09/2023 20:39:23 07/09/20 23 07/09/2023 CBC/C OMPLE TE BLD COUNT W/DIF F basophils, absolute count 0.07 x10'3 /uL 0.01-0 .08 Not Available [facility] (Lab) [address] [place], [address], 07/09/2023 20:39:23 07/09/20 23 07/09/2023 CBC/C OMPLE TE BLD COUNT W/DIF F immature granulocytes ,absolute 0.01 x10'3 /uL 0.00-0 .05 Not Available [facility] (Lab) [address] [place], [address], 07/09/2023 20:39:23 07/09/20 23 07/09/2023 CBC/C OMPLE TE BLD COUNT W/DIF F nucleated red blood cells 0.0 % -0 Not Available [facility] (Lab) [address] [place], [address], 07/09/2023 20:39:23 07/09/20 23 07/09/2023 CBC/C OMPLE TE BLD COUNT W/DIF F NRBC# 0.00 x10'3 /uL Not Available [facility] (Lab) [address] [place], [address], 07/09/2023 20:39:23 07/09/20 23 07/09/2023 MICRO ALBUM IN RANDO M URINE microalbumin , urine 11.4 mg/L 0.0-16 .6 Not Available [facility] (Lab) [address] [place], [address], 07/09/2023 21:27:18 07/09/20 23 07/09/2023 VITAM IN D 25-HY DROXY [id number] 29.9 NG/mL 30-100 low Vitam in D Statu s: Defic ient: <20 ng/mL Insuf ficie nt: 20-29 ng/mL Suffi cient : 30-10 0 ng/mL Not Available [facility] (Lab) [address] [place], [address], 07/09/2023 21:45:12 07/09/20 23 07/09/2023 COMPR EHENS HANK METAB OLIC PANEL sodium 146 mmol/ L 137-14 5 high Not Available [facility] (Lab) [address] [place], [address], 07/09/2023 22:08:35 07/09/20 23 07/09/2023 COMPR EHENS HANK METAB OLIC PANEL potassium 4.6 mmol/ L 3.5-5. 1 Not Available [facility] (Lab) [address] [place], [address], 07/09/2023 22:08:35 07/09/20 23 07/09/2023 COMPR EHENS HANK METAB OLIC PANEL chloride 106 mmol/ L 98-107 Not Available [facility] (Lab) [address] [place], [address], 07/09/2023 22:08:35 07/09/20 23 07/09/2023 COMPR EHENS HANK METAB OLIC PANEL carbon dioxide 26 mmol/ L 22-30 Not Available [facility] (Lab) [address] [place], [address], 07/09/2023 22:08:35 07/09/20 23 07/09/2023 COMPR EHENS HANK METAB OLIC PANEL anion gap 18.6 mmol/ L 14-22 Not Available [facility] (Lab) [address] [place], [address], 07/09/2023 22:08:35 07/09/20 23 07/09/2023 COMPR EHENS HANK METAB OLIC PANEL glucose 73 mg/dL 70-99 Not Available [facility] (Lab) [address] [place], [address], 07/09/2023 22:08:35 07/09/20 23 07/09/2023 COMPR EHENS HANK METAB OLIC PANEL BUN 30 mg/dL 8-19 high Not Available [facility] (Lab) [address] [place], [address], 07/09/2023 22:08:35 07/09/20 23 07/09/2023 COMPR EHENS HANK METAB OLIC PANEL creatinine 1.80 mg/dL 0.66-1 .25 high Not Available [facility] (Lab) [address] [place], [address], 07/09/2023 22:08:35 07/09/20 23 07/09/2023 COMPR EHENS HANK METAB OLIC PANEL GFR 35 Refer ence Range : [place] GFR Healt hy Adult : >60 mL/mi n/1.7 3 m2 Chron ic Kidne y Disea se: 15-60 mL/mi n/1.7 3 m2 Kidne y Failu re: <15/m L/min /1.73 m2 www.n iddk. nih.g ov The MDRD study equat ion has not been valid ated in child maría elena <18 years of age; pregn ant women ; the elder ly >85 years of age; or in some racia l or ethni c subgr oups, such as Hispa nics. Outsi de the valid ated lynette eters , estim ated GFR is less accur ate, requi ring clini jimbo judgm ent on a case- by-ca se basis . Clini jimbo inter preta tion for other races and ages must be made by the clini angelito. The MDRD study equat ion has not been valid ated for the evalu ation of serum creat inine relat ed to nutri michael l statu s or medic ation usage . For perso ns <18 years of age, a pedia tric GFR calcu lator is avail able on the [facility] websi te: https :[email or web address] buitrago.bethanie rosas/aspen amin s/kdo qi/gf r_cal culat or Not Available [facility] (Lab) [address] [place], [address], 07/09/2023 22:08:35 07/09/20 23 07/09/2023 COMPR EHENS HANK METAB OLIC PANEL alkaline phosphatase 92 U/L 38-126 Not Available [facility] (Lab) [address] [place], [address], 07/09/2023 22:08:35 07/09/20 23 07/09/2023 COMPR EHENS HANK METAB OLIC PANEL alanine aminotransfe rase 28 U/L 0-35 Not Available [facility] (Lab) [address] [place], [address], 07/09/2023 22:08:35 07/09/20 23 07/09/2023 COMPR EHENS HANK METAB OLIC PANEL aspartate aminotransfe rase 32 U/L 15-37 Not Available [facility] (Lab) [address] [place], [address], 07/09/2023 22:08:35 07/09/20 23 07/09/2023 COMPR EHENS HANK METAB OLIC PANEL bilirubin, total 1.00 mg/dL 0.20-1 .30 Not Available [facility] (Lab) [address] [facility] [place], [address], 07/09/2023 22:08:35 07/09/20 23 07/09/2023 COMPR EHENS HANK METAB OLIC PANEL calcium 9.8 mg/dL 8.4-10 .2 Not Available [facility] (Lab) [address] [place], [address], 07/09/2023 22:08:35 07/09/20 23 07/09/2023 COMPR EHENS HANK METAB OLIC PANEL total protein 9.2 g/dL 6.3-8. 2 high Not Available [facility] (Lab) [address] [place], [address], 07/09/2023 22:08:35 07/09/20 23 07/09/2023 COMPR EHENS HANK METAB OLIC PANEL albumin 4.6 g/dL 3.4-5. 0 Not Available [facility] (Lab) [address] [place], [address], 07/09/2023 22:08:35 07/09/20 23 07/09/2023 COMPR EHENS HANK METAB OLIC PANEL globulin 4.6 g/dL 2.6-4. 2 high Not Available [facility] (Lab) [address] [place], [address], 07/09/2023 22:08:35 12/08/20 23 07/09/2023 COMPR EHENS HANK METAB OLIC PANEL A/G ratio 1.0 ratio 1.0-2. 0 Not Available [facility] (Lab) [address] [place] [address], [address], 07/09/2023 22:08:35 07/09/20 23 07/09/2023 LIPID PANEL cholesterol 223 mg/dL 140-19 9 high NIH DENYS NSUS RECOM MENDA TION FOR ROBY STERO L: ADULT CHILD LOW RISK: <200 <170 BORDE RLINE : <200- 239 ----- HIGH RISK: >240 >200 Not Available [facility] (Lab) [address] [place] [address], [address], 07/09/2023 22:08:40 07/09/20 23 07/09/2023 LIPID PANEL triglyceride s 45 mg/dL 0-150 NIH DENYS NSUS REPOR T RECOM MENDA TION FOR TRIGL YCERI NANI: ADULT CHILD LOW RISK: <150 ----- BODER LINE: 150-1 99 ----- HIGH RISK: >200 ----- Not Available [facility] (Lab) [address] [place] [address], [address], 07/09/2023 22:08:40 07/09/20 23 07/09/2023 LIPID PANEL HDL cholesterol 62 mg/dL 40- Not Available [facility] (Lab) [address] [place] [address], [address], 07/09/2023 22:08:40 07/09/20 23 07/09/2023 LIPID PANEL LDL cholesterol, calculated 152 mg/dL 0-130 high NIH DENYS NSUS REPOR T RECOM MENDA TIONS FOR LDL: ADULT CHILD LOW RISK <130 <110 (OPTI MAL LDL) <100 ----- BORDE RLINE : 130-1 59 ----- HIGH RISK: >160 >130 A TRIGL YCERI DE RESUL T >400 INVAL IDATE S THE CALCU LATIO N FOR LDL FRACT IONAT ION - THE LDL RESUL T WILL NOT BE REPOR HELEN. Not Available [facility] (Lab) [address] [place], [address], 07/09/2023 22:08:40 07/09/20 23 07/10/2023 HEMOG LOBIN A1C HA1C 5.6 % 4.0-6. 0 Diabe matthew Scree sandie Crite placido: <5.7% Consi stent with absen ce of diabe matthew 5.7-6 .4% Consi stent with incre ased risk for diabe matthew (pred iabet es) >OR=6 .5% Consi stent with diabe matthew REFER ENCE: Diabe matthew Care 2016, 39(Amaya ppl.1 ):s13 -s22 Not Available [facility] (Lab) [address] [place], [address], 07/10/2023 10:17:40 03/01/20 23 03/01/2023 XR, chest No observ ation record ed. [email or web address] Not Available 2022 12:30:54 03/04/20 23 03/03/2023 XR, chest , 2 view No observ ation record ed. [address] [facility] [address], [place], [address], 03/08/2023 08:36:07 11/11/19 24 11/04/2023 PFT, compl ete No observ ation record ed. BARCODE Not Available 2023 10:06:09 11/24/19 25 11/23/2024 , echoc ardio gram, trans thora cic, compl ete No observ ation record ed. [email or web address] Simba Floyd MD [address] [place], [address], 11/27/2024 12:04:14 Result Notes None recorded. Problems Name Problem SNOMED Code Status Onset Date Resolution Date Notes Provider Name and Address Organization Details Recorded Time Blood glucose outside reference range 728258995 Completed Not Available [facility] 3 05:19:34 Glaucoma 54968033 Active Not Available [facility] 3 09:07:46 Edema 254171455 Active Not Available [facility] 3 09:07:46 Finding of body mass index 022442404 Active 2021 Not Available [facility] 3 09:07:46 Restless legs 54782627 Active Not Available [facility] 3 09:07:46 Vitamin D deficiency 38536420 Active Not Available [facility] 3 09:07:46 Hypertensi ve disorder 77963192 Active 2018 Not Available [facility] 3 09:07:46 Body mass index 40+ - severely obese 868121785 Active 2018 Not Available [facility] 3 09:07:46 Obesity 957004049 Active Not Available [facility] 3 09:07:46 Congestive heart failure 14122049 Active 2018 Not Available [facility] 3 09:07:46 Hyperlipid emia 92955058 Active 2020 Not Available [facility] 3 09:07:46 Essential hypertensi on 52045914 Active Not Available [facility] 3 09:07:46 Diabetes mellitus 78652966 Active Not Available [facility] 3 09:07:46 Sleep apnea 47441908 Active Not Available [facility] 3 09:07:46 Obstructiv e sleep apnea syndrome 86980720 Active 2018 Not Available [facility] 3 09:07:46 Cardiomyop athy 52500492 Active Not Available [facility] 3 09:07:46 Gallstone 571535599 Active 2022 Not Available [facility] 3 09:07:46 Chronic kidney disease 958207194 Active 2022 Not Available [facility] 3 09:07:46 Edema of lower extremity 005886456 Active 2022 Not Available [facility] 3 09:07:46 Disorder of thyroid gland 50658230 Active 2024 Savage Fleming MD [address] [facility] [address], [place], [address] , [place] [facility] 12:11:52 Problem Notes None recorded. Procedures Surgical History None recorded. Imaging Results Imaging Date Name Status LastModified by Organiz ation Details LastModified Time 03/01/2023 XR, chest completed [email or web address] Information no t available 03/03/2023 12:30:54 03/03/2023 XR, chest, 2 view completed [email or web address] [facility] [address] , [place], [address], 03/08/2023 08:36:07 11/04/2023 PFT, complete completed BARCODE Information not available 11/11/2023 10:06:09 11/23/2024 , echocardiogra m, transthoracic , complete completed [email or web address] Simba Floyd MD [address] [place], [address], 11/27/2024 12:04:14 Procedure Notes None recorded. Medical Equipment None Reported. Allergies Allergen ID Allergen Name Allergen Category Reaction Reaction Severity Criticality Documentation Date Start Date Code Code System Note Provider Name and Address Organization Details Recorded Time 9688 lisinopri l medicatio n cough Not available Not available 09/30/2022 70533 RxNorm Not Available [facility] 05:26:57 Medications Name Sig Start Date Stop Date Status Note LastModified by Organization Details LastModified Time furosemide 40 mg tablet TAKE 1 TABLET BY MOUTH TWICE A DAY. NEEDS APPT FOR FURTHER REFILLS active Not Available Not Available No t Available latanopros t 0.005 % eye drops INSTILL 1 DROP INTO BOTH EYES AT BEDTIME active Not Available Not Available No t Available metformin 500 mg tablet 11/16 completed Not Available Not Available Not Available carvedilol 25 mg tablet TAKE 1 TABLET BY MOUTH TWICE A DAY 08/28 completed Not Available Not Available Not Available carvedilol 6.25 mg tablet TAKE 1 TABLET BY MOUTH TWICE A DAY 11/27 completed Not Available Not Available Not Available ropinirole 1 mg tablet Take 1 tablet every day by oral route at bedtime. active Not Available Not Available No t Available amiodarone 200 mg tablet TAKE 1 TABLET BY MOUTH EVERY DAY active Not Available Not Available No t Available hydrocodon e 5 mg-acetami nophen 325 mg tablet TAKE 1 TABLET BY MOUTH EVERY 6 HOURS NEEDED FOR SEVERE RESPIRATO RY PAIN (7-10) PAIN SCALE 04/08 completed Not Available Not Available Not Available aspirin 81 mg tablet,del ayed release TAKE 1 TABLET BY MOUTH EVERY DAY IN THE MORNING active Not Available Not Available No t Available spironolac tone 25 mg tablet TAKE 1/2 TABLET BY MOUTH EVERY DAY 11/27 completed Not Available Not Available Not Available carvedilol 3.125 mg tablet TAKE 1 TABLET BY MOUTH TWICE A DAY active Not Available Not Available No t Available oxycodone- acetaminop hen 5 mg-325 mg tablet 04/08 completed Not Available Not Available Not Available magnesium oxide 400 mg (241.3 mg magnesium) tablet TAKE 1 TABLET BY MOUTH TWICE A DAY 11/27 completed Not Available Not Available Not Available [employer] Ultra Test strips USE ONE STRIP IN METER TWICE A DAY active Not Available Not Available No t Available cephalexin 500 mg capsule TAKE 1 CAPSULE BY MOUTH THREE TIMES A DAY 04/08 completed Not Available Not Available Not Available metformin 1,000 mg tablet Take 1 tablet twice a day by oral route. 03/19 completed From ER Not Available Not Available Not Available glimepirid e 4 mg tablet TAKE 1 TABLET BY MOUTH TWICE A DAY 05/28 completed Not Available Not Available Not Available brimonidin e 0.2 % eye drops LOCATION: BOTH EYES. INSTILL ONE DROP INTO BOTH EYES TWICE TIMES A DAY. active Not Available Not Available No t Available furosemide 20 mg tablet TAKE 1/2 TABLET BY MOUTH ONCE A DAY AND ANOTHER 1/2 TABLET NEEDED 04/08 completed Not Available Not Available Not Available ergocalcif gena (vitamin D2) 1,250 mcg (50,000 unit) capsule TAKE 1 CAPSULE BY MOUTH ONE TIME PER WEEK FOR 90 DAYS 11/27 completed Not Available Not Available Not Available timolol maleate 0.5 % eye drops 03/19 completed Not Available Not Available Not Available losartan 100 mg tablet 06/07 completed Not Available Not Available Not Available metformin ER 500 mg tablet,ext ended release 24 hr TAKE 1 TABLETS BY MOUTH TWICE A DAY 02/05 completed Not Available Not Available Not Available brimonidin e 0.15 % eye drops INSTILL 1 DROP INTO BOTH EYES TWICE A DAY 04/08 completed Not Available Not Available Not Available dorzolamid e 2 % eye drops INSTILL ONE DROP INTO BOTH EYES TWO TIMES A DAY active Not Available Not Available No t Available rosuvastat in 10 mg table [id number]|2024-12-13 09:58:00|2024-12-13 09:58:00|KATIE_ITS|[facility]|Health Information Management|[id number]|"DS: Admitting Diagnosis Discharge Date 12/13/24 Admitting Diagnosis V-tach DS: Discharge Diagnosis Discharge Diagnosis (1) Ventricular tachycardia: Code(s): I47.20 - Ventricular tachycardia, unspecified Status: Acute Assessment and Plan: Cardiology consulted pending recommendations Recommend Coreg Q 8 instead of b.i.d. Admit to IMU Replete electrolytes as needed monitoring coordinator Continue home amiodarone (2) Pneumonia: Qualifiers: Pneumonia [...] need to follow up with her primary dance instructor, will monitor plan, possibly discharge her tomorrow. DS: Summary Hospital Course Hospital Course: 59 y/o female with history of cardiomyopathy had URI and took OTC decongestion wich triggered ventricular tachy fibrillation and she had a defibrillator shock of 40 joules and converted AV paced, patient is placed on amiodarone 200mg PO BID to suppress vertical fibrillation, now clinically stable has no complaints of CP, patient will need to follow up with her primary dance instructor, today patient HR is normal, patient is clinically stable and has no complaints, will discharge today. Time Spent with Patient Time attestation: Total time spent providing and/or coordinating discharge services: Exam Narrative: Patient is comfortable, NAD HEENT: eyes are clear and none icteric LUNGS:CTA HEART: RR S1S2 ABD: BS+, Soft and nontender Lower extremities: no edema SKIN: nonjaundiced Neuro: grossly intact. DS: Data Data Completed and Pending Labs on day of discharge: Labs from last 24 hours 0512/13/24 12/12/24 07:30 03:44 20:59 WBC 9.2 RBC 3.54 L Hgb 10.2 L Hct 32.6 L MCV 92.1 MCH 28.8 MCHC 31.3 L RDW 14.0 Plt Count 346 MPV 9.0 Sodium 139 Potassium 3.3 L Chloride 107 Carbon Dioxide 25 Anion Gap 7 BUN 11 Creatinine 1.02 H Estim Creat Clear Calc 63 Estimated GFR 55 L Glucose 91 POC Capillary Glucose 99 116 H Calcium 8.5 Magnesium 1.8 12/12/24 12/12/24 15:21 11:21 WBC RBC Hgb Hct MCV MCH MCHC RDW Plt Count MPV Sodium Potassium Chloride Carbon Dioxide Anion Gap BUN Creatinine Estim Creat Clear Calc Estimated GFR Glucose POC Capillary Glucose 103 111 H Calcium Magnesium Preliminary micro results at discharge 12/11/24 16:20 Blood Culture - Preliminary Blood 12/11/24 16:30 Blood Culture - Preliminary Blood Discharge Plan Discharge Attending physician on discharge: Domingo Morris Consulting providers: Corine Poe; Peterson Webster; Ilsa Benitez; Lupe Flowers; Lawanda Cristina; Jared Marrero Discharging Clinician: Domingo Morris Patient Disposition: Home Activity: as tolerated Diet: heart healthy Discharge Instructions: patient to 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 patient is instructed is any symptoms redevelop to go nearest ER. Patient Instructions: Antibiotic Form, Heart Failure (DC), Type 2 Diabetes Management for Adults (DC) Patient Language: Mongolian Stand Alone Forms: General Discharge Information Follow-up/Referrals: Bernadette,Savage Dumont MD [Primary Care Provider] - Corine Poe MD [Physician] - Discharge Medications: New amiodarone [Pacerone] 200 mg Tablet 200 mg PO BIDWM Qty: 60 0RF magnesium oxide 400 mg (241.3 mg magnesium) Tablet 400 mg PO DAILY Qty: 30 0RF doxycycline hyclate 100 mg Tablet 100 mg PO Q12HR Qty: 10 0RF potassium chloride [K-Tab] 20 mEq tablet extended release 40 meq PO BID Qty: 14 0RF Continued brimonidine 0.15 % drops 1 drp EACH EYE BID dorzolamide 2 % drops 1 drp EACH EYE DAILY Entresto 49-51 mg tablet 1 tablet PO BID rosuvastatin 20 mg tablet 20 mg PO DAILY Ozempic 0.25 mg or 0.5 mg(2 mg/1.5 mL) pen injector 1 mg SUBCUT WEEKLY Rx Instructions: aspirin 81 mg Tablet,Delayed Release (Dr/Ec) 81 mg PO QAM Qty: 30 0RF carvedilol [Coreg] 3.125 mg Tablet 3.125 mg PO Q12HR Qty: 60 0RF furosemide 20 mg tablet 40 mg PO DAILY Qty: 30 0RF rosuvastatin 10 mg tablet 10 mg PO DAILY cholecalciferol (vitamin D3) 50 mcg (2,000 unit) capsule 50 mcg PO DAILY dapagliflozin propanediol [Farxiga] 10 mg tablet 10 mg PO DAILY Discontinued amiodarone 200 mg tablet 200 mg PO DAILY Other Ambulatory Orders: Basic Metabolic Panel (Routine) Timeframe: 2 Days Location: Determined by Patient Ordered By: Domingo Morris Magnesium (Routine) Timeframe: 2 Days Location: Determined by Patient Ordered By: Domingo Morris Date of admission: 12/11/24 18:55 Primary Care Provider: Bernadette,Savage Dumont Admitting Provider: Domingo Morris Attending physician on admission: Domingo Morris Condition: Stable "
--- OUTSIDE RECORDS SUMMARY | 2024-12-11 13:21 | XMS_ITS | Clinical Summary ---
Author Organization [facility] Facility Address [address] [facility] CITY[facility]ell[facility] JACK[place] [address] [place] [id number] Care Team Providers Care Community Health Worker Name Role Phone Unavailable Primary Care Provider Unavailabl e Allergies Active Allergy Reactions Criticality Noted Date Comments Lisinopril Other (see comments) 09/01/2023 Medications amiodarone (PACERONE) 200 MG tablet Take 200 mg by mouth 1 (one) time each day in the morning Active aspirin (ST LILLIAM) 81 MG EC tablet Take 1 tablet by mouth 1 (one) time each day in the morning Active carvedilol (COREG) 3.125 MG tablet Take 3.125 mg by mouth in the morning and 3.125 mg in the evening. Take with meals. Active Dapagliflozin Propanediol (Farxiga) 10 MG tablet Take 1 tablet every day by oral route. Active furosemide (LASIX) 40 MG tablet Take 40 mg by mouth 1 (one) time each day Active sacubitril-valsa rtan (Entresto) 49-51 MG per tablet Take 1 tablet by mouth in the morning and 1 tablet in the evening. Active Semaglutide, 1 MG/DOSE, (Ozempic, 1 MG/DOSE,) 4 MG/3ML solution pen-injector 1 mg per week Act abby BRIMONIDINE TARTRATE-TIMOLOL OP Administer 5 mL into affected eye(s) in the morning and 5 mL in the evening. Active dorzolamide-kunal lol (COSOPT) 2-0.5 % ophthalmic solution 1 drop in the morning and 1 drop in the evening. 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 10/31/2024 Chronic kidney disease stage 3A 09/07/2023 Cardiomyopathy 09/01/2023 Type 2 diabetes mellitus 09/01/2023 Edema 09/01/2023 Essential hypertension 09/01/2023 Vitamin D deficiency 09/01/2023 Hyperlipidemia 01/13/2021 Congestive heart failure 09/28/2018 Obstructive sleep apnea syndrome 09/28/2018 Resolved Problems Problem Noted Date Diagnosed Date Resolved Date Chronic kidney disease 02/19/202309/07 Encounters Date Type Department Care Team Description 11/08/2024 [facility] [address] [phone] Daljit Villalpando MD 10/31/2024 10:00 AM CDT [facility] [address] [phone] Daljit Villalpando MD Chronic kidney disease stage 3A (HCC) (Primary Dx); Essential hypertension; Mixed hyperlipidemia; Type 2 diabetes mellitus, not otherwise specified (HCC); Left ventricular failure, not otherwise specified (HCC); 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; Obstructive sleep apnea syndrome; Vitamin D deficiency, not otherwise specified 10/20/2024 Orders Only [facility] [address] [phone] Daljit Villalpando MD from Last 3 Months Immunizations Immunization Administration Dates Next Due Influenza, Intrademal, Quadr ivalent, Preservative Free 11/14/2015 Influenza, Quadrivalent, Preservative Free 07/09 Influenza, Quadrivalent, With Preservative 05/24,04/29/2020,06/05/2019 Influenza, Unspecified 05/30/2018,06/07/2017,01/2015 Pfizer SARS-COV-2 10/26/2020,10/03/2020 Family History Medical History Relation Comments Diabetes Brother Diabetes Father Heart disease Father Hypertension Father Stroke Father Diabetes Mother Hypertension Mother Diabetes Sister Relation Status Comments Brother Father Mother Sister Social History Tobacco Use Types Packs/Day Years Used Date Smoking Tobacco: Never Smokeless Tobacco: Never Tobacco Cessation:Counseling Given: Not Answered Alcohol Use Standard Drinks/Week Comments Not Currently 0 (1 standard drink = 0.6 oz pur e alcohol) Comments Unknown Sex and Gender Information Value Date Recorded Sex Assigned at Not on file Legal Sex Female 12:05 PM EST Gender Identity Not on file Sexual Orientation Not on file Last Filed Vital Signs Vital Sign Reading Time Taken Comments Blood Pressure 120/70 10/31/2024 10:03 AM CDT Pulse 68 10/31/2024 10:03 AM CDT Temperature 36.1 C (97 F) 10/31/2024 10:03 AM CDT Respiratory Rate 18 10/31/2024 10:03 AM CDT Oxygen Saturation 99% 10/31/2024 10:03 AM CDT Inhaled Oxygen Concentration - - Weight 108 kg (237 lb) 10/31/2024 10:03 AM CDT Height 167.6 cm (5' 6 ) 12/14/2023 10:12 AM CDT Body Mass Index 38.25 12/14/2023 10:12 AM CDT Plan of Treatment Upcoming Encounters Date Type Department Care Team (Late st Contact Info) Description 05/08/2025 10:00 AM CDT Office Visit [facility] [address] [facility] [address] [place] [phone] [place] [address] [place] [phone] Health Maintenance Due Date Last Done Comments Breast Cancer Screening 1965 Pneumococcal Vaccine: 50+ Years (1 of 2 - PCV) 11/14/1983 Colorectal Cancer Screening: Annual FOBT 2013 Colorectal Cancer Screening: Colonoscopy 2013 Colorectal Cancer Screening: Sigmoidoscopy 2013 Diabetes: Ophthalmology Exam 07/30/2023 Diabetes: Pedal Pulse Checked 07/30/2023 Diabetes: Sensory Foot Exam 07/30/2023 Diabetes: Visual Foot Exam 07/30/2023 Diabetes: Hemoglobin A1C 01/20/2025 025, 03/16/2024, 12/13/2023, Additional history exists Influenza Vaccine (Season Ended) 2025 07/09/2023, 05/24/2021, 04/29/2020, Additional history exists Hepatitis B Vaccine Aged Out No longe r eligible based on patient's age to complete this topic Procedures Procedure Name Priority Date/Time Associated Diagnosis Comments HEMOGLOBIN A1C Routine 10/20/2024 8:18 AM CDT PROTEIN / CREATININE RATIO, URINE Routine 10/20/2024 8:18 AM CDT VITAMIN D 25 HYDROXY Routine 10/20/2024 8:18 AM CDT CBC AND DIFFERENTIAL Routine 10/20/2024 8:18 AM CDT URINALYSIS WITH MICROSCOPIC Routine 10/20/2024 8:18 AM CDT COMPREHENSIVE METABOLIC PANEL Routine 10/20/2024 8:18 AM CDT PHOSPHATE ( PHOSPHORUS) Routine 10/20/2024 8:18 AM CDT LIPID PANEL Routine 10/20/2024 8:18 AM CDT PTH, INTACT AND CALCIUM Routine 10/20/2024 8:18 AM CDT from Last 3 Months Results * (ABNORMAL) PTH, Intact and Calcium (10/20/2024 8:18 AM CDT) Parathyroid Hormone, Intact 141(H) 16 - 77 pg/mL See order comments Comment: Interpretive Guide Intact PTH Calcium ------- Normal Parathyroid Normal Normal Hypoparathyroidism Low or Low Normal Low Hyperparathyroidism Primary Normal or High High Secondary High Normal or Low Tertiary High High Non-Parathyroid Hypercalcemia Low or Low Normal High Calcium 8.5(L) 8.6 - 10.4 mg/dL See order comments 10/20/2024 8:18 AM CDT 10/20/2024 8:21 AM CDT Narrative Resulting Agency Comment Performing Organization Information: Site ID: LIZETH Name: [employer] Address: [address] [place] [address] [place] [address] Director: Aydin Lei MD Daljit Villalpando MD LAB BLOOD ORDERABLES Final R esult Performing Organization Address [facility] de Phone Number [facility] See order comments [place] [address] * (ABNORMAL) Protein, Total, Random Urine w/Creatinine (Protein/Creat Ratio) (10/20/2024 8:18 AM CDT) Creatinine, Ur 190 20 - 275 mg/dL See order comments Urine Protein/Creati nine Ratio 221(H) 24 - 184 mg/g creat See order comments Protein/Creati nine Ratio, Urine 0.221(H) 0.024 - 0.184 mg/mg creat See order comments Protein Urine Random 42(H) 5 - 24 mg/dL See order comments 10/20/2024 8:18 AM CDT 10/20/2024 8:21 AM CDT Narrative Resulting Agency Comment Performing Organization Information: Site ID: LIZETH Name: [employer] Address: [address] [place] [address] [place] [address] Director: Aydin Lei MD Daljit Villalpando MD LAB URINE ORDERABLES Final R esult Performing Organization Address [facility] Co de Phone Number [facility] See order comments [place] [address] * Vitamin D 25 Hydroxy (10/20/2024 8:18 AM CDT) Vitamin D, 25-OH, Total, IA 51 30 - 100 ng/mL See order comments Comment: Vitamin D Status 25-OH Vitamin D: Deficiency: <20 ng/mL Insufficiency: 20 - 29 ng/mL Optimal: > or = 30 ng/mL For 25-OH Vitamin D testing on patients on D2-supplementation and patients for whom quantitation of D2 and D3 fractions is required, the QuestAssureD(TM) 25-OH VIT D, (D2,D3), LC/MS/MS is recommended: order code 44906 (patients >2yrs). See Note 1 Note 1 For additional information, please refer to http://education.bulletn./faq/NZW047 (This link is being provided for informational/ educational purposes only.) 10/20/2024 8:18 AM CDT 10/20/2024 8:21 AM CDT Narrative Resulting Agency Comment Performing Organization Information: Site ID: [place] Name: [facility] [employer] Address: [address] [address] Director: Aydin Lei MD us Daljit Villalpando MD LAB BLOOD ORDERABLES Final R esult [facility] See order comments [place] [address] * (ABNORMAL) Urinalysis with microscopic (10/20/2024 8:18 AM CDT) Color, Urine DARK YELLOW YELLOW See o rder comments Appearance Urine CLEAR CLEAR See order comments Specific Humble, UA 1.034 1.001 - 1.035 See order comments pH Urine 5.5 5.0 - 8.0 See order comments Glucose, Ur 3+(A) NEGATIVE See orde r comments Bilirubin, Urine NEGATIVE NEGATIVE See order comments Ketones, Urine NEGATIVE NEGATIVE See o rder comments Hemoglobin Ur Ql Strip NEGATIVE NEGATIVE See order comments Protein, Ur TRACE(A) NEGATIVE See orde r comments Nitrite, Urine NEGATIVE NEGATIVE See o rder comments WBC Esterase Urine NEGATIVE NEGATIVE See order comments WBC, Urine 0-5 < OR = 5 /HPF See order comments RBC, Urine 0-2 < OR = 2 /HPF See order comments Epithelial Cells in Urine 6-10(A) < OR = 5 /HPF See order comments Trans Epithelial, Urine CANCELED < OR = 5 /HPF See order comments Comment:Result canceled by t he ancillary. Renal Epithelial Cells, Urine CANCELED < OR = 3 /HPF See order comments Comment:Result canceled by t he ancillary. Bacteria FEW(A) NONE SEEN /HPF See order comments Calcium Oxalate Crystals, Urine CANCELED NONE OR FEW /HPF See order comments Comment:Result canceled by t he ancillary. Triple Phosphate Crystals, Urine CANCELED NONE OR FEW /HPF See order comments Comment:Result canceled by t he ancillary. Uric Acid Crystals, Urine CANCELED NONE OR FEW /HPF See order comments Comment:Result canceled by t he ancillary. Amorphous Sediments CANCELED NONE OR FEW /HPF See order comments Comment:Result canceled by t he ancillary. Crystals CANCELED NONE SEEN /HPF See order comments Comment:Result canceled by t he ancillary. Hyaline Casts, Urine NONE SEEN NONE SEEN /LPF See order comments Granular Casts, Urine CANCELED NONE SEEN /LPF See order comments Comment:Result canceled by t he ancillary. Casts CANCELED NONE SEEN /LPF See order comments Comment:Result canceled by t he ancillary. Yeast, UA CANCELED NONE SEEN /HPF See order comments Comment:Result canceled by t he ancillary. Note: See order comments Comment: This urine was analyzed for the presence of WBC, RBC, bacteria, casts, and other formed elements. Only those elements seen were reported. 10/20/2024 8:18 AM CDT 10/20/2024 8:21 AM CDT Narrative Resulting Agency Comment Performing Organization Information: Site ID: [place] Name: [facility] Address: [address] [place] [phone] Director: Aydin Lei MD us Daljit Villalpando MD LAB URINE ORDERABLES Final R esult [facility] See order comments [place] [address] * (ABNORMAL) CBC and Differential (10/20/2024 8:18 AM CDT) WBC 3.3(L) 3.8 - 10.8 Thousand/ uL See order comments RBC 4.30 3.80 - 5.10 Million/u L See order comments Hemoglobin 13.2 11.7 - 15.5 g/dL See order comments Hematocrit 40.5 35.0 - 45.0 % See order comments MCV 94.2 80.0 - 100.0 fL See order comments MCH 30.7 27.0 - 33.0 pg See order comments MCHC 32.6 32.0 - 36.0 g/dL See order comments Comment: For adults, a slight decrease in the calculated MCHC value (in the range of 30 to 32 g/dL) is most likely not clinically significant; however, it should be interpreted with caution in correlation with other red cell parameters and the patient's clinical condition. RDW 14.3 11.0 - 15.0 % See order comments Platelets 223 140 - 400 Thousand/ uL See order comments MPV 9.7 7.5 - 12.5 fL See order comments Neutrophils Absolute 1,544 1,500 - 7,800 cells/uL See order comments Band Neutrophils Absolute, Manual Count CANCELED 0 - 750 cells/uL See order comments Comment:Result canceled by t he ancillary. Metamyelocytes Absolute CANCELED 0 cells/uL See order comments Comment:Result canceled by t he ancillary. Absolute Myelocytes CANCELED 0 cells/uL See order comments Comment:Result canceled by t he ancillary. Absolute Promyelocytes CANCELED 0 cells/uL See order comments Comment:Result canceled by t he ancillary. Lymphocytes Absolute 1,162 850 - 3,900 cells/uL See order comments Monocytes Absolute 413 200 - 950 cells/uL See order comments Eosinophils Absolute 132 15 - 500 cells/uL See order comments Basophils Absolute 50 0 - 200 cells/uL See order comments Blasts Absolute CANCELED 0 cells/uL See order comments Comment:Result canceled by t he ancillary. NRBC Absolute CANCELED 0 cells/uL See order comments Comment:Result canceled by t he ancillary. Neutrophils Relative 46.8 % See order comments Bands Absolute CANCELED % See o rder comments Comment:Result canceled by t he ancillary. Metamyelocytes Percent CANCELED % See order comments Comment:Result canceled by t he ancillary. Myelocytes Relative CANCELED % See order comments Comment:Result canceled by t he ancillary. Promyelocytes Relative CANCELED % See order comments Comment:Result canceled by t he ancillary. Lymphocytes 35.2 % See orde r comments Variant lymphocytes/100 WBC (Bld) CANCELED 0 - 10 % See order comments Comment:Result canceled by t he ancillary. Monocytes 12.5 % See order comments Eosinophils 4.0 % See orde r comments Basophils Relative 1.5 % S ee order comments Blasts CANCELED % See order comments Comment:Result canceled by t he ancillary. nRBC CANCELED 0 /100 WBC See order comments Comment:Result canceled by t he ancillary. Comment(s) CANCELED See order comments Comment:Result canceled by t he ancillary. 10/20/2024 8:18 AM CDT 10/20/2024 8:21 AM CDT Narrative Resulting Agency Comment Performing Organization Information: Site ID: [place] Name: [facility] Address: [address] [place] [address] Director: Aydin Lei MD Daljit Villalpando MD LAB BLOOD ORDERABLES Final R esult Performing Organization Address [facility] de Phone Number [facility] See order comments [place] [address] * Phosphorus (10/20/2024 8:18 AM CDT) Phosphorus 4.3 2.5 - 4.5 mg/dL See order comments 10/20/2024 8:18 AM CDT 10/20/2024 8:21 AM CDT Narrative Resulting Agency Comment Performing Organization Information: Site ID: [place] Name: [employer] Address: [address] [place] [address] Director: Aydin Lei MD Daljit Villalpando MD LAB BLOOD ORDERABLES Final R esult Performing Organization Address [facility] Co de Phone Number [facility] See order comments [place] [address] * Hemoglobin A1c (10/20/2024 8:18 AM CDT) Hemoglobin A1C 5.6 <5.7 % of total Hgb See order comments Comment: For the purpose of screening for the presence of diabetes: <5.7% Consistent with the absence of diabetes 5.7-6.4% Consistent with increased risk for diabetes (prediabetes) > or =6.5% Consistent with diabetes This assay result is consistent with a decreased risk of diabetes. Currently, no consensus exists regarding use of hemoglobin A1c for diagnosis of diabetes in children. According to [place] Diabetes Association (ADA) guidelines, hemoglobin A1c <7.0% represents optimal control in non- diabetic patients. Different metrics may apply to specific patient populations. Standards of Medical Care in Diabetes(ADA). 10/20/2024 8:18 AM CDT 10/20/2024 8:21 AM CDT Narrative Resulting Agency Comment Performing Organization Information: Site ID: Name: [facility] Address: [address] [place] [id number] Director: Aydin Lei us Daljit Villalpando MD LAB BLOOD ORDERABLES Final R esult [facility] See order comments [place] [address] * Lipid panel (10/20/2024 8:18 AM CDT) Cholesterol 135 <200 mg/dL See ord er comments HDL 52 > OR = 50 mg/dL See order comments Triglycerides 52 <150 mg/dL See o rder comments LDL Direct 70 mg/dL (calc) See order comments Comment: Reference range: <100 Desirable range <100 mg/dL for primary prevention; <70 mg/dL for patients with CHD or diabetic patients with > or = 2 CHD risk factors. LDL-C is now calculated using the Adnrae-Ally calculation, which is a validated novel method providing better accuracy than the Friedewald equation in the estimation of LDL-C. Andrae RED et al. BEN. 2013;310(19): 0378-1466 (http://education.Xiami Radio.com/faq/GFN234) Chol/HDL Ratio 2.6 <5.0 (calc) See order comments Non HDL Cholesterol 83 <130 mg/dL (calc) See order comments Comment: For patients with diabetes plus 1 major ASCVD risk factor, treating to a non-HDL-C goal of <100 mg/dL (LDL-C of <70 mg/dL) is considered a therapeutic option. 10/20/2024 8:18 AM CDT 10/20/2024 8:21 AM CDT Narrative Resulting Agency Comment Performing Organization Information: Site ID: LIZETH Name: [employer] Address: [address] [address] Director: Aydin Lei MD us Daljit Villalpando MD LAB BLOOD ORDERABLES Final R esult [facility] See order comments [place] [address] * (ABNORMAL) Comprehensive Metabolic Panel (10/20/2024 8:18 AM CDT) Glucose 88 65 - 99 mg/dL See order comments Comment: Fasting reference interval BUN 20 7 - 25 mg/dL See order comments Creatinine 1.35(H) 0.50 - 1.03 mg/dL See order comments eGFR CKD-EPI CR 2020 45(L) > OR = 60 mL/min/1.7 3m2 See order comments BUN/Creatinine Ratio 15 6 - 22 (calc) See order comments Sodium 143 135 - 146 mmol/L See order comments Potassium 3.5 3.5 - 5.3 mmol/L See order comments Chloride 104 98 - 110 mmol/L See order comments Bicarbonate (CO2) 32 20 - 32 mmol/L See order comments Calcium 8.5(L) 8.6 - 10.4 mg/dL See order comments Total Protein 7.0 6.1 - 8.1 g/dL See order comments Albumin 4.0 3.6 - 5.1 g/dL See order comments Globulin, Total 3.0 1.9 - 3.7 g/dL (calc) See order comments A/G Ratio 1.3 1.0 - 2.5 (calc) See order comments Total Bilirubin 0.8 0.2 - 1.2 mg/dL See order comments Alkaline Phosphatase 62 37 - 153 U/L See order comments AST (SGOT) 17 10 - 35 U/L See order comments ALT (SGPT) 15 6 - 29 U/L See orde r comments 10/20/2024 8:18 AM CDT 10/20/2024 8:21 AM CDT Narrative Resulting Agency Comment Performing Organization Information: Site ID: LIZETH Name: [employer] Address: [address] [address] Director: Aydin Lei MD us Daljit Villalpando MD LAB BLOOD ORDERABLES Final R esult [facility] See order comments [place] [address] from Last 3 Months Insurance
--- OUTSIDE RECORDS SUMMARY | 2024-12-11 13:21 | XMS_ITS | Continuity of Care Document ---
Author Organization [facility] Address [address] [place] [address] Phone Care Team Providers Care Radio Journalist Name Role Phone Ranjan Gr Unavailable Unavailable Procedures Procedure Date Office/outpatient Visit, Est SV Poly Carb Sph +/- 7.12 To +/- 20 D Ma Frames Deluxe Anti-reflective Coating Tax - Medical Office/outpatient Visit, Est Office/outpatient Visit, New Fundus Photography W/ Report Eye Exam & Treatment Refraction Visual Field Examination(s) Optic Nerve Topography Optic Nerve Topography Eye Exam Established Pt Office/outpatient Visit, Est Special Eye Evaluation Advance Directives Directive Yes / No Effective Date File Name No Information Encounters Encounter Description Practice Location Reason(s) For Visit Diagnoses Date Provider Providers Copied on Encounter Office/outpat ient Visit, Est [facility], [address], [place], [place], [id number], [place] tel:[phone] [facility] No Information 3-200 9 Maile Woodruff. [address] [facility] [address], [place], [address], [place]. tel:[phone] [facility], [address], [place], [place], [address], [place] tel:[phone] SEC [facility] No Information 3-200 9 [facility] [employer]. [address] [facility], [address], [place], [place], [address], [place]. tel:[phone] Referring Provider: Jack Aguilar OD A, [employer] [address], [place], [address]. tel:[phone] sulting Provider: Nara Evans, [address] [facility], [place], [place], [facility]. tel:[phone] Office/outpat ient Visit, [facility], [address] [place] [address] [address], [place], [place], [id number], [place] tel:[phone] [facility] [place] [facility] No Information 1-200 9 Aguilar OD Jack. [address] [place], [place] [address]ate [address], [address], [place], [place], [facility], [place]. tel:[phone] Office/outpat ient Visit, [facility], [id number] [place] [address] [address], [place], [place], [address], [place] tel:[phone] [facility] [place] [facility] [place] No Information 5-200 9 Aguilar OD Jack. [facility] [address], [place], [address], [place]. tel:[phone] Referring Provider: Jack Aguilar OD A, [employer] [address], [place], [address]. tel:[phone] [facility], [address] [place] [address] [address], [place], [place], [address], [place] tel:[phone] [facility] [place] [facility] [place] No Information 8-200 9 Aguilar OD Jack. [facility] [address], [place], [address], [place]. tel:[phone] [facility], [address] [place] [address] [address], [place], [place], [address], tel:[phone] SEC [facility] No Information Oct-2 5-200 8 Aguilar OD Jack. [address] [place] [address] , [address], [place], [place], [facility], . tel:[phone] Referring Provider: Jack Peñaloza, [address] [place] [address] [address], [place], [place], [facility]. tel:[phone] [facility], [address] [place] [address] [address], [place], [place], [address], tel:[phone] SEC [facility] No Information 2-200 8 Aguilar OD Jack. [address] [place] [address] , [address], [place], [place], [facility], [place]. tel:[phone] Office/outpat ient Visit, [facility], [address], [place], [place], [address], [place] tel:[phone] [facility] No Information 0 9-200 7 [place]. [address], [place], [address], [place]. tel:[phone] Referring Provider: Thee Peñaloza [address] [place], [address] . tel:[phone] Family History Family Member Type Diagnosis Age At Onset No Information Payers Payer name Insurance type Covered green party ID Authoriza tion(s) No Information Social History Type Description Quantity Date Captured Comments Sex Female Smoking Status No Information Chief Complaint And Reason For Visit No Information Reason For Referral Reason For Referral No Information History Of Present Illness Encounter Date Complaint History Of Prese nt Illness No Information Functional Status Date Functional Assessmen t No Information Instructions Date Instruction Additional Infor mation No Information Assessments Type Assessment Date No Information Patient Care Teams Name Effective Dates (start - stop) Status Members No Information
--- NOTE | 2024-12-11 13:26 | ECG_ITS ---
Test Date: 2024-12-11 13:35:36 Measurements Intervals [place] Rate: 79 P: 35 NM: 183 QRS: 263 QRSD: 166 T: 55 QT: 471 QTc: 541 Interpretive Statements ELECTRONIC VENTRICULAR PACEMAKER ABNORMAL RHYTHM ECG No previous ECG available for comparison Electronically Signed On 12-12-2024 14:39:51 CDT by Ilsa Benitez M.D.
--- NOTE | 2024-12-11 14:40 | ED.ARRPALP ---
HPI - Arrhythmia/Palpitations General Chief Complaint: Arrhythmia/Palpitations <Gladys Cooley APRN - Last Filed: 12/11/24 18:34> Stated Complaint: defib fired <Gladys Cooley APRN - Last Filed: 12/11/24 18:34> Time Seen by Provider: 12/11/24 14:26 <Gladys Cooley APRN - Last Filed: 12/11/24 18:34> History of Present Illness HPI narrative: Patient is a 59-year-old female who presents to the ER after her deep fibrillator fired. She reports earlier today she was lying on the couch watching TV when she became lightheaded. Patient reports she believe she passed out, as she has a lapse in her memory, but her boyfriend saw her jump while laying on the couch. She denies hitting her head. Patient reports she has recently experienced more congestion and has been coughing a lot. She reports she feels like the coughing is affecting her heart rate. Patient endorses a history of diabetes, CHF, and high blood pressure. She is followed by Cardiology at [facility]. Patient denies any recent fevers, lower extremity swelling, or shortness of breath. <Gladys Cooley APRN - Last Filed: 12/11/24 18:34> Related Data Home Medications: Home Medications Medication Instructions Recorded Confirmed Last Taken Type brimonidine 0.15 % eye drops 1 drp DAILY 11/23/22 11/23/22 Unknown History dorzolamide 2 % eye drops 1 drp EACH EYE DAILY 11/23/22 11/23/22 Unknown History metformin 500 mg tablet,extended 500 mg PO BID 11/23/22 11/23/22 Unknown History release 24 hr rosuvastatin 20 mg tablet 20 mg PO DAILY 11/23/22 11/23/22 Unknown History sacubitril 49 mg-valsartan 51 mg 1 tablet PO BID 11/23/22 11/23/22 Unknown History tablet (Entresto) semaglutide 0.25 mg or 0.5 mg (2 1 mg subcut WEEKLY 11/23/22 11/23/22 11/18/22 History mg/1.5 mL) subcutaneous pen injector ([facility] <Gladys Cooley APRN - Last Filed: 12/11/24 18:34> Allergies/Adverse Reactions: Allergies Allergy/AdvReac Type Severity Reaction Status Date / Time No Known Allergies Allergy Verified 12/11/24 14:25 <Gladys Cooley APRN - Last Filed: 12/11/24 18:34> Review of Systems Review of Systems: All systems reviewed & are unremarkable except as noted in HPI and below <Gladys Cooley APRN - Last Filed: 12/11/24 18:34> [facility] Past Medical History Medical History: Medical History Colon cancer screening RUQ pain Glaucoma DM2 (diabetes mellitus, type 2) CHF (congestive heart failure), NYHA class I Hyperlipidemia Hypertension <Gladys Cooley APRN - Last Filed: 12/11/24 18:34> Surgical History Surgical History: Surgical History History of cardiac catheterization Years ago at [place] and reportedly no significant coronary artery disease H/O dilation and curettage H/O: hysterectomy LUIS-BSO History of appendectomy exploratory laparotomy with appendectomy due to perforated appendicitis <Gladys Cooley APRN - Last Filed: 12/11/24 18:34> Family History Family History: Family History Father Acute myocardial infarction Diabetes mellitus Mother Acute myocardial infarction Diabetes mellitus Sibling Diabetes mellitus <Gladys Cooley APRN - Last Filed: 12/11/24 18:34> Social History Social History: Social History Social History: She lives with her significant other and has 1 son. She occasionally drinks alcohol such as a Brenda or a glass a wine. She works at the [employer]. Lifelong nonsmoker but is exposed to secondhand smoke. Code status full code Smoking status: Never smoker Alcohol intake: current Drinks per week: 1 Substance use: never Substance use type: does not use Lack of Transportation: No Lack of Food: Never True Current Housing: I Have Housing Concerned About Future Housing: No Difficulty Paying Gas/Electric Bills: No Difficulty Paying for Meds: No Currently Unemployed: No Education: Associate Degree Difficulty w/ Childcare or Family Care: No Spiritual care concerns: No <Gladys Cooley APRN - Last Filed: 12/11/24 18:34> Exam Narrative: GENERAL: Well appearing, well-nourished, non-toxic, in no acute distress. HEAD: Normocephalic, atraumatic. NECK: Supple. No adenopathy, no masses. RESPIRATORY: Airway patent, respirations nonlabored. Rales upon auscultation bilaterally, no wheezing. CARDIOVASCULAR: Regular rate and rhythm. Peripheral pulses 2+ and equal bilaterally. No lower extremity edema. ABDOMINAL: Soft, nontender, nondistended, no hepatosplenomegaly. Normoactive BS. MUSCULOSKELETAL: Moves all extremities. Strength/ROM intact without gross deformities. SKIN: Warm, dry, normal color. No rashes. NEURO: A&O X3. Speech clear. Cranial nerves II-XII intact. No ataxic movements. PSYCHIATRIC: Appropriate mood and affect. Normal interaction. <Gladys Cooley, NASIM - Last Filed: 12/11/24 18:34> Course GROUP BILLING COORDINATOR/PA Physician Supervision For this patient encounter, I reviewed the GROUP BILLING COORDINATOR or PA documentation, treatment plan, and medical decision making and/or I had [id number] time with this patient. I performed all aspects of the MDM as documented. <Lupe Flowers MD - Last Filed: 12/11/24 18:32> Vital Signs Vital signs: Vital Signs Temperature 98.7 F 12/11/24 13:21 Pulse Rate 87 12/11/24 13:21 Respiratory Rate 16 12/11/24 13:21 Blood Pressure 115/50 L 12/11/24 13:21 Pulse Oximetry 95 12/11/24 13:21 Oxygen Delivery Room Air 12/11/24 13:21 Temperature 98.7 F 12/11/24 13:21 Pulse Rate 80 12/11/24 18:07 Respiratory Rate 19 12/11/24 17:00 Blood Pressure 110/96 H 12/11/24 17:00 Pulse Oximetry 95 12/11/24 17:00 Oxygen Delivery Room Air 12/11/24 14:20 <Gladys Cooley, NASIM - Last Filed: 12/11/24 18:34> Vital Signs Temperature 98.7 F 12/11/24 13:21 Pulse Rate 87 12/11/24 13:21 Respiratory Rate 16 12/11/24 13:21 Blood Pressure 115/50 L 12/11/24 13:21 Pulse Oximetry 95 12/11/24 13:21 Oxygen Delivery Room Air 12/11/24 13:21 Temperature 98.7 F 12/11/24 13:21 Pulse Rate 80 12/11/24 18:07 Respiratory Rate 19 12/11/24 17:00 Blood Pressure 110/96 H 12/11/24 17:00 Pulse Oximetry 95 12/11/24 17:00 Oxygen Delivery Room Air 12/11/24 14:20 <Lupe Flowers MD - Last Filed: 12/11/24 18:32> MDM - Arrhythmia/Palpitations MDM Narrative Medical decision making narrative: Patient is a 59-year-old female who presents to the ER after her deep fibrillator fired. She reports earlier today she was lying on the couch watching TV when she became lightheaded. Patient reports she believe she passed out, as she has a lapse in her memory, but her boyfriend saw her jump/twitch while laying on the couch. She denies hitting her head. Patient reports she has recently experienced more congestion and has been coughing a lot. She reports she feels like the coughing is affecting her heart rate. Patient endorses a history of diabetes, CHF, and high blood pressure. She is followed by Cardiology here at [place]. Patient denies any recent fevers, lower extremity swelling, or shortness of breath. She reports she has a [employer]otron[employer] defibrillator Labs Ordered: Troponin, CMP, CBC, proBNP, COVID/flu/RSV swab, Magnesium, INR, PTT, blood cultures, lactic acid Imaging Ordered: Chest x-ray (d/t lung crackles), defibrillator interrogation Medications Ordered: 1L NS IV bolus (over two hours), Ceftriaxone 1gm IV, Azithromycin 500mg IV, Carvedilol PO Results: Pt's chest x-ray indicates Cardiomegaly with cardiac decompensation and pulmonary edema. Superimposed pneumonia cannot be excluded. Consults: 1530- Spoke with Mattie Smith NP, from cardiology. She would like to see pt's interrogation report prior to offering advice for further evaluation. 163- Interrogation report was faxed to the ER and indicated pt did receive one electrical shock at 12:25pm on December 11, 2024 after she went into v. fib. Spoke with Mattie Smith NP, who advised Dr. Poe be contacted. Pt's cat cracker operator is Dr. Floyd, who is Dr. Poe's partner. 163- Spoke with Dr. Poe who advised pt be admitted to the hospital for further cardiac monitoring. He advised that pt's Coreg dose be incrementally increased to TID instead of BID. Pt will receive her first extra Coreg dose prior to being admitted to the hospital. 1640- Pt went into another episode of v.tach, which lasted for approximately 45 seconds. It is unclear whether or not she was shocked out of the rhythm, as pt denies feeling a shock. 1644-Spoke with RAH Webber, hospitalist, who was in agreement with plan for admission to the hospital. Pt will be admitted to the IMU. Patient Education/Shared MDM: Pt's WBC, ESR, and CRP are all elevated so pt will be treated for pneumonia. Results of lab work and imaging shared with patient and her significant other. Conversation with Dr. Poe was also explained to pt. She verbalizes understanding and is in agreement with plan for admission. <Gladys Cooley, SURFACE HYDROLOGIST - Last Filed: 12/11/24 18:34> Differential Diagnosis Differential diagnosis: Likely palpitations, artial fibrillation, supraventricular tachycardia and ventricular tachycardia <Gladys Cooley APRN - Last Filed: 12/11/24 18:34> Lab Data Attestation: I reviewed the patient's lab results. <Gladys Cooley SURFACE HYDROLOGIST - Last Filed: 12/11/24 18:34> Result diagrams: 12/11/24 15:10 12/11/24 15:10 <Gladys Cooley SURFACE HYDROLOGIST - Last Filed: 12/11/24 18:34> Labs: Lab Results 12/11/24 12/11/24 12/11/24 Range/Units 15:08 15:09 15:10 WBC 13.7 H (4.5-10.0) K/mm3 RBC 4.02 L (4.2-5.4) M/mm3 Hgb 11.6 L (12.0-15.0) g/dL Hct 37.4 (37.0-47.0) % MCV 93.0 (80-100) fl MCH 28.9 (26-34) pg MCHC 31.0 L (32-36) g/dl RDW 13.9 (11.5-14.5) % Plt Count 419 H D (150-375) k/mm3 MPV 9.3 (7.4-10.4) fl Immature Gran % (Auto) 0.5 (0-0.5) % Neut % (Auto) 82.4 H (45.5-73.1) % Lymph % (Auto) 8.5 L (18.3-44.2) % [place] % (Auto) 7.4 (2.6-8.5) % Eos % (Auto) 0.7 (0-4.4) % Baso % (Auto) 0.5 (0.2-1.2) % Lymph # (Auto) 1.17 (0.9-3.2) K/mm3 [place] # (Auto) 1.0 H (0.1-0.6) K/mm3 Eos # (Auto) 0.1 (0-0.3) K/mm3 Baso # (Auto) 0.1 (0.0-0.1) K/mm3 Abs Immat Gran (auto) 0.07 H (0.00-0.031) K/mm3 Absolute Neuts (auto) 11.3 H (1.3-6.7) K/mm3 Absolute Nucleated RBC 0.000 (0.0-0.012) K/mm3 Nucleated RBC % 0.0 (0.0-0.2) % ESR 71 H (0-20) mm/hr PT 16.1 H (11.1-14.7) Seconds INR 1.3 APTT 33.3 (22.3-36.8) Seconds Sodium 142 (137-145) mmol/L Potassium 3.4 (3.4-5.0) mmol/L Chloride 104 (98-107) mmol/L Carbon Dioxide 29 (22-30) mmol/L Anion Gap 9 (4-12) mmol/L BUN 16 (7-17) mg/dL Creatinine 1.06 H (0.7-1.0) mg/dL Estim Creat Clear Calc 61 ml/min Estimated GFR 53 L (59 - ) Glucose 93 (65-110) mg/dL Lactic Acid (0.7-2.0) mmol/L Calcium 8.5 (8.4-10.2) mg/dL Phosphorus 3.8 (2.5-4.5) mg/dL Magnesium 1.9 (1.6-2.3) mg/dL Total Bilirubin 0.9 (0.2-1.3) mg/dL AST 36 (14-36) U/L ALT 25 (6-35) U/L Alkaline Phosphatase 115 (38-126) U/L Troponin I Cancelled C-Reactive Protein (<1.0) mg/dL NT-Pro-B Natriuret Pep (19.9-100) pg/mL Total Protein (6.3-8.2) g/dL Albumin (3.5-5.1) g/dL Influenza A (RT-PCR) (Negative) Influenza B (RT-PCR) (Negative) RSV (RT-PCR) (Negative) SARS-CoV-2 RNA (RT-PCR) (Negative) 12/11/24 12/11/24 12/11/24 Range/Units 15:10 15:10 16:17 WBC (4.5-10.0) K/mm3 RBC (4.2-5.4) M/mm3 Hgb (12.0-15.0) g/dL Hct (37.0-47.0) % MCV (80-100) fl MCH (26-34) pg MCHC (32-36) g/dl RDW (11.5-14.5) % Plt Count (150-375) k/mm3 MPV (7.4-10.4) fl Immature Gran % (Auto) (0-0.5) % Neut % (Auto) (45.5-73.1) % Lymph % (Auto) (18.3-44.2) % [place] % (Auto) (2.6-8.5) % Eos % (Auto) (0-4.4) % Baso % (Auto) (0.2-1.2) % Lymph # (Auto) (0.9-3.2) K/mm3 [place] # (Auto) (0.1-0.6) K/mm3 Eos # (Auto) (0-0.3) K/mm3 Baso # (Auto) (0.0-0.1) K/mm3 Abs Immat Gran (auto) (0.00-0.031) K/mm3 Absolute Neuts (auto) (1.3-6.7) K/mm3 Absolute Nucleated RBC (0.0-0.012) K/mm3 Nucleated RBC % (0.0-0.2) % ESR (0-20) mm/hr PT (11.1-14.7) Seconds INR APTT (22.3-36.8) Seconds Sodium (137-145) mmol/L Potassium (3.4-5.0) mmol/L Chloride (98-107) mmol/L Carbon Dioxide (22-30) mmol/L Anion Gap (4-12) mmol/L BUN (7-17) mg/dL Creatinine (0.7-1.0) mg/dL Estim Creat Clear Calc ml/min Estimated GFR (59 - ) Glucose (65-110) mg/dL Lactic Acid 0.9 (0.7-2.0) mmol/L Calcium (8.4-10.2) mg/dL Phosphorus (2.5-4.5) mg/dL Magnesium (1.6-2.3) mg/dL Total Bilirubin (0.2-1.3) mg/dL AST (14-36) U/L ALT (6-35) U/L Alkaline Phosphatase (38-126) U/L Troponin I 0.022 C-Reactive Protein 13.0 H (<1.0) mg/dL NT-Pro-B Natriuret Pep 4770 H Cancelled (19.9-100) pg/mL Total Protein 8.0 (6.3-8.2) g/dL Albumin 3.6 (3.5-5.1) g/dL Influenza A (RT-PCR) Negative (Negative) Influenza B (RT-PCR) Negative (Negative) RSV (RT-PCR) Negative (Negative) SARS-CoV-2 RNA (RT-PCR) Negative (Negative) <Gladys Cooley, SURFACE HYDROLOGIST - Last Filed: 12/11/24 18:34> Lab Results 12/11/24 12/11/24 12/11/24 Range/Units 15:08 15:09 15:10 WBC 13.7 H (4.5-10.0) K/mm3 RBC 4.02 L (4.2-5.4) M/mm3 Hgb 11.6 L (12.0-15.0) g/dL Hct 37.4 (37.0-47.0) % MCV 93.0 (80-100) fl MCH 28.9 (26-34) pg MCHC 31.0 L (32-36) g/dl RDW 13.9 (11.5-14.5) % Plt Count 419 H D (150-375) k/mm3 MPV 9.3 (7.4-10.4) fl Immature Gran % (Auto) 0.5 (0-0.5) % Neut % (Auto) 82.4 H (45.5-73.1) % Lymph % (Auto) 8.5 L (18.3-44.2) % [place] % (Auto) 7.4 (2.6-8.5) % Eos % (Auto) 0.7 (0-4.4) % Baso % (Auto) 0.5 (0.2-1.2) % Lymph # (Auto) 1.17 (0.9-3.2) K/mm3 [place] # (Auto) 1.0 H (0.1-0.6) K/mm3 Eos # (Auto) 0.1 (0-0.3) K/mm3 Baso # (Auto) 0.1 (0.0-0.1) K/mm3 Abs Immat Gran (auto) 0.07 H (0.00-0.031) K/mm3 Absolute Neuts (auto) 11.3 H (1.3-6.7) K/mm3 Absolute Nucleated RBC 0.000 (0.0-0.012) K/mm3 Nucleated RBC % 0.0 (0.0-0.2) % ESR 71 H (0-20) mm/hr PT 16.1 H (11.1-14.7) Seconds INR 1.3 APTT 33.3 (22.3-36.8) Seconds Sodium 142 (137-145) mmol/L Potassium 3.4 (3.4-5.0) mmol/L Chloride 104 (98-107) mmol/L Carbon Dioxide 29 (22-30) mmol/L Anion Gap 9 (4-12) mmol/L BUN 16 (7-17) mg/dL Creatinine 1.06 H (0.7-1.0) mg/dL Estim Creat Clear Calc 61 ml/min Estimated GFR 53 L (59 - ) Glucose 93 (65-110) mg/dL Lactic Acid (0.7-2.0) mmol/L Calcium 8.5 (8.4-10.2) mg/dL Phosphorus 3.8 (2.5-4.5) mg/dL Magnesium 1.9 (1.6-2.3) mg/dL Total Bilirubin 0.9 (0.2-1.3) mg/dL AST 36 (14-36) U/L ALT 25 (6-35) U/L Alkaline Phosphatase 115 (38-126) U/L Troponin I Cancelled C-Reactive Protein (<1.0) mg/dL NT-Pro-B Natriuret Pep (19.9-100) pg/mL Total Protein (6.3-8.2) g/dL Albumin (3.5-5.1) g/dL Influenza A (RT-PCR) (Negative) Influenza B (RT-PCR) (Negative) RSV (RT-PCR) (Negative) SARS-CoV-2 RNA (RT-PCR) (Negative) 12/11/24 12/11/24 12/11/24 Range/Units 15:10 15:10 16:17 WBC (4.5-10.0) K/mm3 RBC (4.2-5.4) M/mm3 Hgb (12.0-15.0) g/dL Hct (37.0-47.0) % MCV (80-100) fl MCH (26-34) pg MCHC (32-36) g/dl RDW (11.5-14.5) % Plt Count (150-375) k/mm3 MPV (7.4-10.4) fl Immature Gran % (Auto) (0-0.5) % Neut % (Auto) (45.5-73.1) % Lymph % (Auto) (18.3-44.2) % [place] % (Auto) (2.6-8.5) % Eos % (Auto) (0-4.4) % Baso % (Auto) (0.2-1.2) % Lymph # (Auto) (0.9-3.2) K/mm3 [place] # (Auto) (0.1-0.6) K/mm3 Eos # (Auto) (0-0.3) K/mm3 Baso # (Auto) (0.0-0.1) K/mm3 Abs Immat Gran (auto) (0.00-0.031) K/mm3 Absolute Neuts (auto) (1.3-6.7) K/mm3 Absolute Nucleated RBC (0.0-0.012) K/mm3 Nucleated RBC % (0.0-0.2) % ESR (0-20) mm/hr PT (11.1-14.7) Seconds INR APTT (22.3-36.8) Seconds Sodium (137-145) mmol/L Potassium (3.4-5.0) mmol/L Chloride (98-107) mmol/L Carbon Dioxide (22-30) mmol/L Anion Gap (4-12) mmol/L BUN (7-17) mg/dL Creatinine (0.7-1.0) mg/dL Estim Creat Clear Calc ml/min Estimated GFR (59 - ) Glucose (65-110) mg/dL Lactic Acid 0.9 (0.7-2.0) mmol/L Calcium (8.4-10.2) mg/dL Phosphorus (2.5-4.5) mg/dL Magnesium (1.6-2.3) mg/dL Total Bilirubin (0.2-1.3) mg/dL AST (14-36) U/L ALT (6-35) U/L Alkaline Phosphatase (38-126) U/L Troponin I 0.022 C-Reactive Protein 13.0 H (<1.0) mg/dL NT-Pro-B Natriuret Pep 4770 H Cancelled (19.9-100) pg/mL Total Protein 8.0 (6.3-8.2) g/dL Albumin 3.6 (3.5-5.1) g/dL Influenza A (RT-PCR) Negative (Negative) Influenza B (RT-PCR) Negative (Negative) RSV (RT-PCR) Negative (Negative) SARS-CoV-2 RNA (RT-PCR) Negative (Negative) <Lupe Flowers MD - Last Filed: 12/11/24 18:32> Imaging Data Attestation: I personally reviewed and interpreted this imaging study as follows: <Gladys Cooley APRN - Last Filed: 12/11/24 18:34> Radiologist's impression: Impressions Chest X-Ray 12/11/24 15:03 IMPRESSION: Cardiomegaly with cardiac decompensation and pulmonary edema. Superimposed pneumonia cannot be excluded. <Gladys Cooley APRN - Last Filed: 12/11/24 18:34> Critical Care Time Critical Care Time Critical Care Time: Yes <Lupe Flowers MD - Last Filed: 12/11/24 18:32> Total Critical Care Time: 35 <Lupe Flowers MD - Last Filed: 12/11/24 18:32> Discharge Plan Discharge Clinical Impression: Pneumonia, Pulmonary hypertension, Defibrillator discharge, Ventricular tachycardia, Upper respiratory infection, Cough <Gladys Cooley APRN - Last Filed: 12/11/24 18:34> Patient Disposition: Still a Patient <Gladys Cooley APRN - Last Filed: 12/11/24 18:34> Condition: Guarded Prognosis <Gladys Cooley APRN - Last Filed: 12/11/24 18:34>
--- OUTSIDE RECORDS SUMMARY | 2024-12-11 15:00 | XMS_ITS | Continuity of Care Document ---
Author Organization 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 [address] [facility] [address], [place], [address], [place]. tel:[phone] Located within [facility], [address], [place], [place], [address], [place] tel:[phone] SEC [facility] Corporate Center No Information 3-200 9 [employer]. [address] [facility], [address], [place], [place], [address], [place]. tel:[phone] Referring Provider: Jack Aguilar OD A, [employer] [address], [place], [address]. tel:[phone] sulting Provider: Nara Evans, [address] [facility], [place], [place], [facility]. tel:[phone] Office/outpat ient Visit, [facility] Eye [facility], [address] [place] [address] [address], [place], [place], [address], [place] tel:[phone] SEC [facility] No Information 1-200 9 Aguilar OD Jack. [address] [place], [place] [address]ate [address], [address], [place], [place], [facility], [place]. tel:[phone] Office/outpat ient Visit, [facility], [address] [place] [address] [address], [place], [place], [address], [place] tel:[phone] SEC [facility] [place] No Information 5-200 9 Aguilar OD Jack. [facility] [address], [place], [address], [place]. tel:[phone] Referring Provider: Jack Aguilar OD A, [employer] [address], [place], [address]. tel:[phone] [facility] Eye [facility], [address] [place] [address] [address], [place], [place], [address], [place] tel:[phone] SEC [facility] [place] No Information 8-200 9 Aguilar OD Jack. [facility] [address], [place], [address], [place]. tel:[phone] [facility] Eye [facility], [address] [place] [address] [address], [place], [place], [address], tel:[phone] SEC [facility] No Information Oct-2 5-200 8 Aguilar OD Jack. [address] [place] [address] , [address], [place], [place], [facility], . tel:[phone] Referring Provider: Jack Peñaloza, [address] [place] [address] [address], [place], [place], [facility]. tel:[phone] Located within [facility], [address] [place] [address] [address], [place], [place], [address], tel:[phone] SEC [facility] No Information 2-200 8 Aguilar OD Jack. [address] [place] [address] , [address], [place], [place], [facility], [place]. tel:[phone] Office/outpat ient Visit, [facility], [address], [place], [place], [address], [place] tel:[phone] SEC [facility] No Information 0 9-200 7 Mc [place]. [address] [place], [place], [address], [place]. tel:[phone] Referring Provider: Thee Peñaloza [address] [place], [address] . tel:[phone] Family History Family Member Type Diagnosis Age At Onset No Information Payers Payer name Insurance type Covered democrat ID Authoriza tion(s) No Information Social History [...]
--- OUTSIDE RECORDS SUMMARY | 2024-12-11 15:00 | XMS_ITS | CONTINUITY OF CARE DOCUMENT ---
Author Name kenji phillip Address Unknown Organization [facility] Address [address] [facility] [address] [place] [address] Phone [phone] Care Team Providers Care Seamark Advanced Operator Maintainer Name Role Phone Simba Floyd MD Unavailable [phone] Savage Fleming MD Unavailable Savage Fleming MD Unavailable [phone] PROBLEMS Condition Status Date Provider Notes S/P Single chamber AICD - Biotronik/Upgrade BiV ICD Biotronik 03/02/23 ( MRI safe) active Jesenia Goyal GLAUCOMA active Jonathan Enrique OBESITY active Jonathan Enrique Risk of amiodarone toxicity w long chain beamer active Simba Floyd MD Cardiology examination active Simba Holguin Ventricular fibrillation active Zarina Vent imiglia [employer] 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 Shortness of breath active Jeovany Jethro Hypotension active Simba Floyd MD Cholecystitis active Lupe Mistry Preoperative cardiovascular examination active Lupe Mistry Syncope active Simba Floyd MD Diabetes mellitus active Dean Wild LBBB active Dean Wild Sleep apnea, obstructive - on CPAP active Simba Floyd MD CHF active Simba Floyd MD LAE- 10/12 ECHO EF 20 SEVERE LAE PASP 68 completed - Simba Floyd MD RENAL ARTERY STENOSIS-10/12 RHYS DUP NEG completed - Simba Floyd MD Nonischemic cardiomyopathy - 06/2019 TTE EF 35% active Dean Wild APPENDECTOMY, HX OF completed - Simba Floyd MD HYSTERECTOMY, HX OF completed - Simba Floyd MD EDEMA completed - Simba Floyd MD CHEST PAIN-04/08 CATH DECREASED LV, INCREASED LVEDP completed - Simba Floyd MD FAMILY HX CARDIOVASCULAR DISEASE completed - Simba Floyd MD Hypertension active Simba Floyd MD ENCOUNTERS Date Type Provider Location Encounter Diag nosis - In-person encounter Office Visit Simba Floyd MD [facility] Risk of amiodarone toxicity w penitentiary - In-person encounter Office Visit Simba Floyd MD [facility] Office Cardiology examination - In-person encounter Office Visit Simba Floyd MD [facility] Ventricular fibrillation - In-person encounter Office Visit Simba Floyd MD [facility] Shortness of breath - In-person encounter Office Visit Simba Floyd MD [facility] Hypotension - In-person encounter Office Visit Simba Floyd MD [facility] - In-person encounter Office Visit Simba Floyd MD [facility] Preoperative cardiovascular examinationCholecystitis - In-person encounter Office Visit Simba Floyd MD [facility] - In-person encounter Office Visit Simba Floyd MD [facility] Syncope - In-person encounter Office Visit Simba Floyd MD [facility] - In-person encounter Office Visit Simba Floyd MD [facility] Nonischemic cardiomyopathy - 06/2019 TTE EF 35%LBBBDiabetes mellitus - In-person encounter Office Visit Simba Floyd MD [facility] HypertensionCHEST PAIN-04/08 CATH DECREASED LV, INCREASED LVEDPEDEMANonischemic cardiomyopathy - 06/2019 TTE EF 35%LAE- 10/12 ECHO EF 20 SEVERE LAE PASP 68Sleep apnea, obstructive - on CPAP - In-person encounter Office Visit Simba Floyd MD [facility] - In-person encounter Office Visit Simba Floyd MD [facility] - In-person encounter Office Visit Simba Floyd MD [facility] FAMILY HX CARDIOVASCULAR DISEASEHYSTERECTOMY, HX OFAPPENDECTOMY, HX OFNonischemic cardiomyopathy - 06/2019 TTE EF 35%RENAL ARTERY STENOSIS-10/12 RHYS DUP NEGCHF - In-person encounter Office Visit Simba Floyd MD [facility] - In-person encounter Office Visit Simba Floyd MD [facility] - In-person encounter Office Visit Simba Floyd MD [facility] Sleep apnea, obstructive - on CPAP - In-person encounter Office Visit Simba Floyd MD [facility] - In-person encounter Office Visit Simba Floyd MD [facility] - In-person encounter Office Visit Simba Floyd MD [facility] - In-person encounter Office Visit Simba Floyd MD [facility] - In-person encounter Office Visit Simba Floyd MD [facility] - In-person encounter Office Visit Simba Floyd MD [facility] - In-person encounter Office Visit Simba Floyd MD [facility] - In-person encounter Office Visit Rustam Rosen MD [facility] - In-person encounter Office Visit Simba Floyd MD [facility] Nonischemic cardiomyopathy - 06/2019 TTE EF 35% VITAL SIGNS Date Observation Value Provider Body Mass Index (Ratio) 37.43 kg/m2 Simba Floyd MD pulse rate 81 /min Sarika Jane s oxygen saturation, oximetry 97 % Sarika Polk blood pressure, diastolic 85 mm[Hg] Ti shandra Polk blood pressure, systolic 126 mm[Hg] Tif toyin Polk blood pressure, cuff size regular Ti shandar Polk weight E&M 239 [lb_av] Sarika Jane s height E&M 67 [in_i] [facility] Body Mass Index (Ratio) 37.90 kg/m2 [...] /min Valentino blood pressure, cuff size large [facility], diastolic 85 mm[Hg] Colten [facility] blood pressure, systolic 133 mm[Hg] James [...] blood pressure, cuff size large Katlyn mancuso [facility] blood pressure, diastolic 80 mm[Hg] Katlyn mancuso [place] blood pressure, systolic 132 mm[Hg] Bony chand [place] oxygen saturation, oximetry 98 % Corazon Magana [...] blood pressure, diastolic 80 mm[Hg] Da hira Giancarlo blood pressure, systolic 122 mm[Hg] Dac ia [...] Carla Harrison blood pressure, diastolic 86 mm[Hg] Or jamshid [facility] blood pressure, systolic 172 mm[Hg] Nelly fuentes Harrison pulse rate 72 /min Carla Harrison oxygen saturation, oximetry 95 % Carla Harrison respiratory rate E&M 15 /min Carla Harrison Body Mass Index (Ratio) 50.74 kg/m2 [facility] E&M 324 [lb_av] Carla Harrison blood pressure, diastolic, left arm 86 mm [Hg] Carla Wade blood pressure, systolic, left arm 132 mm [Hg] Carla Wade blood pressure, diastolic, right arm 84 m m[Hg] Carla Wade blood pressure, systolic, right arm 144 m m[Hg] Carla Wade Body Mass Index (Ratio) 51.21 kg/m2 [facility] kylie Wade blood pressure, diastolic 84 mm[Hg] Or jamshid Wade blood pressure, systolic 144 mm[Hg] [...] systolic, left arm 152 mm [Hg] Aneatris [facility] blood pressure, diastolic, right arm 93 m m[Hg] Aneatris [facility] blood pressure, systolic, right arm 154 m m[Hg] Aneatris [facility] blood pressure, diastolic 92 mm[Hg] An skye [facility] blood pressure, systolic 152 mm[Hg] Adenike escoto [facility] pulse rate 68 /min Aneatris [facility] oxygen saturation, oximetry 98 % Adenikeatris [facility] respiratory rate E&M 18 /min Aneatri s [facility] weight E&M 302 [lb_av] Daryl Roel [...] Bobby RN oxygen saturation, oximetry 96 % Hemran Bobby RN respiratory rate E&M 16 /min [...] pressure goal 148 m m/[Hg] Allison Eugenia EVALUATOR blood pressure, cuff size large Sh anderson Rodall EVALUATOR blood pressure, diastolic 86 mm[Hg] Sh anderson Rodall EVALUATOR blood pressure, systolic 146 mm[Hg] She chante Eugenia EVALUATOR pulse rate 72 /min Allison Bello EVALUATOR weight E&M 299.6 [lb_av] Allison Bello EVALUATOR blood pressure, diastolic, left arm 99 mm [...] ortiz RN weight E&M 304 [lb_av] Herman Bobby RN blood pressure, diastolic 81 mm[Hg] Colten [...] as % of total hemoglobin 14.2 % [facility] iron saturation percent, serum 29 % [facility] iron binding capacity, total 321 ug/dL [facility] iron, serum 94 ug/dL [facility] ferritin, serum 159 ng/mL [facility] platelet count 251 10*3/uL [facility] red blood cell distribution width 13.2 % [facility] mean corpuscular hemoglobin concentration, RBC 31.4 g/dL [facility] mean corpuscular hemoglobin, RBC 29.5 pg [facility] mean corpuscular volume, RBC 94.2 fL [facility] hematocrit, blood 38.9 % [facility] hemoglobin, blood 12.2 g/dL [facility] erythrocyte (RBC) count 4.13 10*6/mm3 [facility] leukocyte count, blood 8.2 10*3/mm3 [facility] LDL cholesterol, serum 89 mg/dL [facility] pro brain natriuretic peptide 682 pg/mL [employer] [...] USE Medication Status Instructions Dates Provider Indications [facility] amiodarone 200 mg tablet active TAKE 1 [...] mouth twice a day - Zarinanoel Wademiglia [employer] UNIFIED 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 Entresto 49-51 mg tablet completed TAKE 1 TABLET BY MOUTH TWICE DAILY * PLEASE SCHEDULE FOLLOW UP APPOINTMENT * - Zarina Stearns [employer] 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 Ozempic 1 mg/dose (4 mg/3 mL) pen [...] history of marijuana use no Zarina Ventimiglia [facility] drug use no Zarina Ventimig dorene [facility] alcohol use no Zarina Ventimig dorene [facility] passive cigarette sm octavia exposure no Zarina Ventimiglia [facility] chewing tobacco use Never Zarina V entimiglia [facility] smoking status Never smoker Zarina Ventim iglia [facility] physical exercise, frequency, days per week no [...] physical exercise, frequency, days per week no Corrycarlyn Gates caffeine use, averag e drinks per day 0 /d Corrycarlyn Gates passive cigarette sm octavia exposure no Corrycarlyn Gates chewing tobacco use Never Corry Elmer ogden smoking status Never smoker Corrycarlyn Gates social history E&M Marital Statu s: Single L beau with family/friends E thnicity: Smoking History: Sha cam has never smoked. Simba Floyd MD [id number]|2024-12-11 16:42:52|2024-12-11 16:42:52|PC.NURSE||||"PT went into what appeared to be V-fib on monitor EDP Gladys Cooley aware, EKG performed. Strip printed and placed with chart. PT states It felt like how it felt earlier, but I didn't get shocked this time . Pt A&Ox4"
--- OUTSIDE RECORDS SUMMARY | 2024-12-11 15:00 | XMS_ITS | Clinical Summary ---
Author Organization [facility] Address [address] [facility] [address] [place] [address] Care Team Providers Care Regional Sales Manager Name Role Phone Unavailable Primary Care Provider [...] Type Department Care Team Description 11/08/2024 [facility] [address] [phone] Daljit Villalpando MD 10/31/2024 10:00 AM CDT Office [facility] [address] [phone] Daljit Villalpando MD Chronic kidney disease stage 3A (HCC) (Primary Dx); Essential hypertension; Mixed hyperlipidemia; Type 2 diabetes mellitus, not otherwise specified (HCC); Left ventricular failure, not otherwise specified (HCC); 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; Obstructive sleep apnea syndrome; Vitamin D deficiency, not otherwise specified 10/20/2024 Orders Only [facility] [address] [phone] Daljit Villalpando MD from Last 3 Months [...] Description 05/08/2025 10:00 AM CDT Office Visit [facility], [facility] [address] [facility] [address] [place] [phone] [place] [address] [place] [address] Health Maintenance Due Date Last Done [...] Performing Organization Information: Site ID: LIZETH Name: [facility] Address: [address] [place] [address] [place] [address] Director: Aydin Lei MD Daljit Villalpando MD LAB BLOOD ORDERABLES Final R esult Performing Organization Address [facility] de Phone Number [facility] See order comments [place] [address] * (ABNORMAL) Protein, Total, Random Urine w/Creatinine [...] Performing Organization Information: Site ID: LIZETH Name: [email or web address] Address: [address] [place] [address] [place] [address] Director: Aydin Lei MD Daljit Villalpando MD LAB URINE ORDERABLES Final R esult Performing Organization Address [facility] Co de Phone Number [facility] See order comments [place] [address] * Vitamin D 25 Hydroxy (10/20/2024 8:18 [...] D, (D2,D3), LC/MS/MS is recommended: order code 36606 (patients >2yrs). See Note 1 Note 1 For additional information, please refer to http://education.Rapid7/faq/YFF631 (This link is being provided for informational/ educational purposes only.) 10/20/2024 8:18 AM CDT 10/20/2024 8:21 AM CDT Narrative Resulting Agency Comment Performing Organization Information: Site ID: [place] Name: [email or web address] Address: [address] [address] Director: Aydin Lei MD us Daljit Villalpando MD LAB BLOOD ORDERABLES Final R esult [facility] See order comments [place] [address] * (ABNORMAL) Urinalysis with microscopic (10/20/2024 8:18 AM CDT) Color, Urine DARK YELLOW YELLOW See o rder comments Appearance Urine CLEAR CLEAR See order comments Specific Chama, UA 1.034 1.001 - 1.035 See order [...] Agency Comment Performing Organization Information: Site ID: [place] Name: [facility] Address: [address] [place] [address] Director: Aydin Lei MD us Daljit Villalpando MD LAB URINE ORDERABLES Final R esult [facility] See order comments [place] [address] * (ABNORMAL) CBC and Differential (10/20/2024 8:18 [...] Agency Comment Performing Organization Information: Site ID: [place] Name: [facility] Address: [address] [place] [address] Director: Aydin Lei MD Daljit Villalpando MD LAB BLOOD ORDERABLES Final R esult Performing Organization Address [facility] de Phone Number [facility] See order comments [place] [address] * Phosphorus (10/20/2024 8:18 AM CDT) Phosphorus 4.3 2.5 - 4.5 mg/dL See order comments 10/20/2024 8:18 AM CDT 10/20/2024 8:21 AM CDT Narrative Resulting Agency Comment Performing Organization Information: Site ID: [place] Name: [email or web address] Address: [address] [place] [address] Director: Aydin Lei MD Daljit Villalpando MD LAB BLOOD ORDERABLES Final R esult Performing Organization Address [facility] Co de Phone Number [facility] See order comments [place] [address] * Hemoglobin A1c (10/20/2024 8:18 AM CDT) [...] diagnosis of diabetes in children. According to [place] Diabetes Association (ADA) guidelines, hemoglobin A1c <7.0% represents optimal control in non- diabetic patients. Different metrics may apply to specific patient populations. Standards of Medical Care in Diabetes(ADA). 10/20/2024 8:18 AM CDT 10/20/2024 8:21 AM CDT Narrative Resulting Agency Comment Performing Organization Information: Site ID: Name: [facility] Address: [address] [place] [address] Director: Aydin Lei us Daljit Villalpando MD LAB BLOOD ORDERABLES Final R esult [facility] See order comments [place] [address] * Lipid panel (10/20/2024 8:18 AM CDT) [...] factors. LDL-C is now calculated using the Andrae-Ally calculation, which is a validated novel method providing better accuracy than the Friedewald equation in the estimation of LDL-C. Andrae RED et al. BEN. 2013;310(19): 2858-3055 (http://education.[employer]com/faq/XLP320) Chol/HDL Ratio 2.6 <5.0 (calc) See order [...] Performing Organization Information: Site ID: LIZETH Name: [employer] Address: [address] [address] Director: Aydin Lei MD us Daljit Villalpando MD LAB BLOOD ORDERABLES Final R esult [facility] See order comments [place] [address] * (ABNORMAL) Comprehensive Metabolic Panel (10/20/2024 8:18 [...] Site ID: LIZETH Name: [facility] Address: [address] [address] Director: Aydin Lei MD us Daljit Villalpando MD LAB BLOOD ORDERABLES Final R esult [facility] See order comments [place] [address] from Last 3 Months Insurance
[2024-12-11 15:21] LABS: Basophils Absolute Auto 0.1 K/mm3 (0.0-0.1); Basophils Percent Auto 0.5 % (0.2-1.2); Eosinophils Absolute Auto 0.1 K/mm3 (0-0.3); Eosinophils Percent Auto 0.7 % (0-4.4); Hematocrit 37.4 % (37.0-47.0); Hemoglobin 11.6 g/dL (12.0-15.0); Immature Granulocyte Absolute 0.07 K/mm3 (0.00-0.031); Immature Granulocyte Percent A 0.5 % (0-0.5); Lymphocytes Absolute Auto 1.17 K/mm3 (0.9-3.2); Lymphocytes Percent Auto 8.5 % (18.3-44.2); Mean Corpuscular Hemoglobin 28.9 pg (26-34); Mean Platelet Volume 9.3 fl (7.4-10.4); Monocytes Percent Auto 7.4 % (2.6-8.5); Neutrophils Absolute Auto 11.3 K/mm3 (1.3-6.7); Neutrophils Percent Auto 82.4 % (45.5-73.1); Platelet Count Result 419 k/mm3 (150-375); Red Blood Count 4.02 M/mm3 (4.2-5.4); Red Cell Distribution Width 13.9 % (11.5-14.5); White Blood Count 13.7 K/mm3 (4.5-10.0)
[2024-12-11 15:39] LABS: Alanine Aminotransferase 25 U/L (6-35); Albumin Level 3.6 g/dL (3.5-5.1); Alkaline Phosphatase 115 U/L (38-126); Aspartate Amino Transferase 36 U/L (14-36); Blood Urea Nitrogen 16 mg/dL (7-17); Calcium 8.5 mg/dL (8.4-10.2); Carbon Dioxide 29 mmol/L (22-30); Chloride 104 mmol/L (98-107)
[2024-12-11 15:40] LABS: Anion Gap 9 mmol/L (4-12); Bilirubin,Total 0.9 mg/dL (0.2-1.3); Estimated CRCL calculation 61 ml/min; Estimated Glomerular Filt Rate 53; Glucose 93 mg/dL (65-110); Potassium 3.4 mmol/L (3.4-5.0); Sodium 142 mmol/L (137-145)
[2024-12-11 15:47] LABS: NT Pro B Type Natriuretic Pept 4770 pg/mL (19.9-100); Troponin I 0.022 ng/mL (0.000-0.034)
[2024-12-11 15:48] LABS: Erythrocyte Sedimentation Rate 71 mm/hr (0-20)
[2024-12-11 15:58] LABS: Influenza A QL RT-PCR Negative (Negative); Influenza B QL RT-PCR Negative (Negative); RSV RNA, RT-PCR Negative (Negative); SARS-CoV-2 RNA PCR Negative (Negative)
--- NOTE | 2024-12-11 17:10 | P.HP_ITS ---
H&P: HPI History of Present Illness Date/Time: 12/11/24 17:10 Chief Complaint: V-tach Narrative: 59-year-old female with past medical history of CHF, diabetes type 2, hyperlipidemia and hypertension with the AICD presents the hospital after being shocked. Patient states that she was traveling this morning sitting and eating her morning medications. She states that she was about to take her medications whenever she arrived home with her AICD went off. Patient states that for the last several days she has had a cough with congestion. She denies fevers chills nausea or vomiting. Patient's lab work shows leukocytosis at 13.7, C-reactive protein at 13, BNP of 4770, influenza A/B, RSV, COVID negative. Lactic acid, magnesium and phosphorus, blood cultures pending. While the patient was in the ED the patient went to V-tach, strip was in the chart, patient denies being shocked at that time.. Cardiology was consulted with recommendations for Coreg Q 8 and treatment of underlying infection. Review of Systems Review of Systems: 12 systems were reviewed and are negativ e except for as per HPI. [facility] Past Medical History Medical History Colon cancer screening RUQ pain Glaucoma DM2 (diabetes mellitus, type 2) CHF (congestive heart failure), NYHA class I Hyperlipidemia Hypertension Surgical History Surgical History History of cardiac catheterization Years ago at [place] and reportedly no significant coronary artery disease H/O dilation and curettage H/O: hysterectomy LUIS-BSO History of appendectomy exploratory laparotomy with appendectomy due to perforated appendicitis Family History Family History Father Acute myocardial infarction Diabetes mellitus Mother Acute myocardial infarction Diabetes mellitus Sibling Diabetes mellitus Social History Social History Social History: She lives with her significant other and has 1 son. She occasionally drinks alcohol such as a Brenda or a glass a wine. She works at the [employer]. Lifelong nonsmoker but is exposed to secondhand smoke. Code status full code Smoking status: Never smoker Alcohol intake: never Drinks per week: 1 Substance use: never Substance use type: does not use Do You Feel Safe in your Home?: Yes Lack of Transportation: No Lack of Food: Never True Current Housing: I Have Housing Concerned About Future Housing: No Difficulty Paying Gas/Electric Bills: No Difficulty Paying for Meds: No Currently Unemployed: No Education: Associate Degree Difficulty w/ Childcare or Family Care: No Spiritual care concerns: No Meds Home Medications and Allergies Home Medications Medication Instructions Recorded Confirmed Type brimonidine 0.15 % eye drops 1 drp EACH EYE BID 11/23/22 12/11/24 History dorzolamide 2 % eye drops 1 drp EACH EYE DAILY 11/23/22 12/11/24 History rosuvastatin 20 mg tablet 20 mg PO DAILY 11/23/22 12/11/24 History sacubitril 49 mg-valsartan 51 mg 1 tablet PO BID 11/23/22 12/11/24 History tablet (Entresto) semaglutide 0.25 mg or 0.5 mg (2 1 mg subcut WEEKLY 11/23/22 12/11/24 History mg/1.5 mL) subcutaneous pen injector (Ozempic) aspirin 81 mg tablet,delayed 81 mg PO QAM #30 tabs 11/27/22 12/11/24 Rx release carvedilol 3.125 mg tablet (Coreg) 3.125 mg PO Q12HR #60 tabs 11/27/22 12/11/24 Rx furosemide 20 mg tablet 40 mg (2 x 20 mg) PO DAILY #30 tabs 11/27/22 12/11/24 Rx amiodarone 200 mg tablet 200 mg PO DAILY 12/11/24 12/11/24 History cholecalciferol (vitamin D3) 50 50 mcg PO DAILY 12/11/24 12/11/24 History mcg (2,000 unit) capsule dapagliflozin propanediol 10 mg 10 mg PO DAILY 12/11/24 12/11/24 History tablet (Farxiga) rosuvastatin 10 mg tablet 10 mg PO DAILY 12/11/24 12/11/24 History Allergies Allergy/AdvReac Type Severity Reaction Status Date / Time No Known Allergies Allergy Verified 12/11/24 20:24 Vital Signs Vital Signs - 24 hr 12/11/24 13:21 12/11/24 14:20 12/11/24 14:20 Temperature 98.7 F Pulse Rate 87 78 Respiratory Rate 16 Blood Pressure 115/50 L Pulse Oximetry 95 96 Oxygen Delivery Room Air Room Air 12/11/24 14:20 12/11/24 14:31 12/11/24 14:47 Temperature Pulse Rate 89 77 75 Respiratory Rate 20 20 21 H Blood Pressure 106/49 L 107/50 L 120/50 L Pulse Oximetry 96 94 95 Oxygen Delivery 12/11/24 14:53 12/11/24 17:00 Temperature Pulse Rate 80 81 Respiratory Rate 24 H 19 Blood Pressure 120/50 L 110/96 H Pulse Oximetry 97 95 Oxygen Delivery Exam Narrative: General: well appearing, appears stated age. HEENT: normocephalic, atraumatic. Mucous membranes moist. EOMI, PERRLA, bilateral sclera anicteric, no conjunctival injection. Neck supple without JVD, lymphadenopathy, or bruit. Respiratory: clear to ascultation bilaterally. No rales/rhonic/wheezes. Cardiovascular: Regular rate and rhythm, normal S1-S2 upon ascultation. No murmurs, rubs, or clicks. PMI is nondisplaced, capillary refill less than 3 second. Abdomen: Soft, round, no pulsatile masses, nondistended and nontender. No rebound, no guarding. No CVA tenderness, no hepatosplenomegaly. Bowel sounds present to all four quadrants. No high pitch or tinkling sounds, resonant to percussion. Extremities: No cyanosis, clubbing, or edema present. Pulses are palpable 2/2. Active ROM to all four extremities. Neuro: Alert and orientated x 4. PERRLA. Cranial nerves 2-12 intact without focal deficit. Skin: Warm, dry, and intact, without rash, erythema, or lesion. Psych: pleasant, cooperative, normal speech, normal affect, no hallucinations, no dysarthia H&P: Results Labs Labs: Short CBC 12/11/24 Range/Units 15:10 WBC 13.7 H (4.5-10.0) K/mm3 Hgb 11.6 L (12.0-15.0) g/dL Hct 37.4 (37.0-47.0) % Plt Count 419 H D (150-375) k/mm3 [facility] 12/11/24 15:10 Sodium 142 Potassium 3.4 Chloride 104 Carbon Dioxide 29 BUN 16 Creatinine 1.06 H Glucose 93 Calcium 8.5 Cardiac Enzymes 12/11/24 12/11/24 Range/Units 15:10 15:10 Troponin I Cancelled 0.022 Liver Function 12/11/24 Range/Units 15:10 Total Bilirubin 0.9 (0.2-1.3) mg/dL AST 36 (14-36) U/L ALT 25 (6-35) U/L Alkaline Phosphatase 115 (38-126) U/L Albumin 3.6 (3.5-5.1) g/dL Assessment and Plan Assessment and plan (1) Ventricular tachycardia: Code(s): I47.20 - Ventricular tachycardia, unspecified Status: Acute Assessment and Plan: Cardiology consulted pending recommendations Recommend Coreg Q 8 instead of b.i.d. Admit to IMU Replete electrolytes as needed court recording monitor Continue home amiodarone (2) Pneumonia: Code(s): J18.9 - Pneumonia, unspecified organism Status: Acute Assessment and Plan: Continue Rocephin, azithromycin change doxycycline due to patient being on amiodarone And a guaifenesin EKG in a.m. to check QTC (3) Hyperlipidemia: Code(s): E78.5 - Hyperlipidemia, unspecified Status: Acute Assessment and Plan: Continue statin (4) DM2 (diabetes mellitus, type 2): Code(s): E11.9 - Type 2 diabetes mellitus without complications Status: Acute Assessment and Plan: Hold home of mAy while in hospital Diabetic diet SSI Quality VTE Prophylaxis VTE prophylaxis: mechanical ordered and pharmacologic ordered Hospitalist MIPS Advance Care Plan I have confirmed that the patient's Advanced Care Plan is present, code status is documented, or surrogate decision maker is listed in patient medical record.: Yes Medication Reconciliation I have utilized all available resources to obtain, update and review the patients current medications (includes all prescriptions, OTC, herbals, cannabis, and nutritional supplements).: Yes
[2024-12-11] MEDS: SODIUM CHLORIDE 0.9% IV 1,000 ML 500 ML IV CONT (17:14)
[2024-12-11] MEDS: AZITHROMYCIN 500 MG/NS 250 ML 500 MG/250 ML BAG 250 MG IVPB (17:21)
--- NOTE | 2024-12-11 17:27 | PC.NURSE ---
Dietary called. Dinner order placed for pt.
[2024-12-11 17:30] LABS: INR 1.3; Partial Thromboplastin Time 33.3 Seconds (22.3-36.8); Prothrombin Time 16.1 Seconds (11.1-14.7)
[2024-12-11 17:31] LABS: Lactic Acid Reflex 0.9 mmol/L (0.7-2.0)
[2024-12-11 17:49] LABS: Glucose Point of Care 80 mg/dl (65-105)
[2024-12-11] MEDS: POTASSIUM CHLORIDE 20 MEQ ER TABLET 40 MEQ PO (18:07)
[2024-12-11] MEDS: carvediloL 3.125 MG TABLET PO ×2 (18:07→20:43)
--- NOTE | 2024-12-11 18:11 | ECG_ITS ---
Test Date: 2024-12-11 18:29:38 Measurements Intervals Nolan Rate: 78 P: 50 DE: 196 QRS: 263 QRSD: 172 T: 56 QT: 483 QTc: 551 Interpretive Statements ELECTRONIC VENTRICULAR PACEMAKER ABNORMAL RHYTHM ECG Compared to ECG 12/11/2024 13:35:36 No significant changes Electronically Signed On 12-12-2024 14:50:08 CDT by Ilsa Benitez M.D.
[2024-12-11 18:13] LABS: Magnesium 1.9 mg/dL (1.6-2.3); Phosphorus 3.8 mg/dL (2.5-4.5)
[2024-12-11] MEDS: CALCIUM GLUC 1,000 MG/NS 50 ML 1,000 MG/50 ML BAG 100 MG IVPB (18:29)
[2024-12-11] MEDS: guaiFENesin/DEXTROMETHORPHAN 10 ML UDC PO ×2 (18:34→20:43)
[2024-12-11 18:58] LABS: Troponin I 0.015 ng/mL (0.000-0.034)
--- NOTE | 2024-12-11 19:37 | ADMGEN ---
This patient, Jessica Ojeda, was admitted to IMU Room 202-01 at 1853. Patient/family oriented to hospital policies and general routines including ID bracelet, bed and alarms, visiting hours, pain management, procedures, bathroom and other care routines, personal items, smoking policy, room service/diet, and visiting hours. Information on how to activate the Rapid Response Team has been discussed. Patient/Family are encouraged to report perceived risks to care and to ask questions if they do not understand what they are told or what they should do.
--- NOTE | 2024-12-11 20:10 | P.CONCA_ITS ---
Assessment and Plan Assessment and plan (1) Upper respiratory infection: Qualifiers: URI type: unspecified viral URI Qualified Code(s): J06.9 - Acute upper respiratory infection, unspecified Code(s): J06.9 - Acute upper respiratory infection, unspecified Status: Acute Assessment and Plan: The present management per Hospital Service patient has been having cough will probably need a cough suppressant that is non stimulant would avoid anything with pseudoephedrine (2) Ventricular tachycardia: Code(s): I47.20 - Ventricular tachycardia, unspecified Status: Acute Assessment and Plan: She had ventricular fibrillation as noted above she had antitachycardia pacing that was noted and then she had a defibrillator shock of 40 joules converted her currently AV paced she has an appointment with Dr. GOODMAN at [facility] to be scheduled I have discussed that with her as well as her at bedside She is on amiodarone 200 mg b.i.d. and carvedilol 3.125 b.i.d.. She is also on Entresto 49-51 twice a day for her nonischemic cardiomyopathy But make sure her magnesium is over 2.0 potassium roughly 4.0 to help reduce the recurrence of ventricular arrhythmia and defibrillator shock (3) Defibrillator discharge: Code(s): Z45.02 - Encounter for adjustment and management of automatic implantable cardiac defibrillator Status: Acute Assessment and Plan: he had ventricular fibrillation as noted above she had antitachycardia pacing that was noted and then she had a defibrillator shock of 40 joules converted her currently AV paced she has an appointment with Dr. GOODMAN at [facility] to be scheduled I have discussed that with her as well as her at bedside on her med list in our office she is on amiodarone 200 mg twice a day as well as carvedilol 3.125 b.i.d. (4) Pneumonia: Qualifiers: Pneumonia type: due to unspecified organism Code(s): J18.9 - Pneumonia, unspecified organism Status: Acute (5) CHF (congestive heart failure), NYHA class I: Qualifiers: Congestive heart failure type: systolic Congestive heart failure chronicity: chronic Qualified Code(s): I50.22 - Chronic systolic (congestive) heart failure Code(s): I50.9 - Heart failure, unspecified Status: Acute Assessment and Plan: She has chronic systolic CHF LV ejection fraction 25% she has nonischemic cardiomyopathy she has had a prior cardiac catheterization demonstrating nonischemic cardiomyopathy her last echocardiogram also demonstrated mitral regurgitation is noted above as a result she has been maintained on Entresto 49- 51 b.i.d. carvedilol 3.125 b.i.d. diuresis with Lasix 40 mg once a day History of Present Illness History of Present Illness Consult date/time: 12/11/24 20:10 Reason For Visit: Defibrillator shock following v. fib, Pneumonia Narrative: Patient is a 59-year-old female who has had upper respiratory infection probably for the past week or so recently has taken [id number] medications has been having a cough for about a week she noticed that she was having repetitive coughing earlier today her was with her witness that she became transiently unresponsive in the knee was awakened and assumed that she had a defibrillator shock. I reviewed our office records prior to coming and seeing her apparently She had a VF of event was noted on a defibrillator check at 12:25 p.m. on December 11 lasting 23 seconds with ventricular rate of 250 beats per minute ATP x1 was unsuccessful and a 40 joule shock was successful patient was then at [facility] where she has been admitted. She has known history of nonischemic cardiomyopathy her most recent echocardiogram was done on November 22, 2024 which had demonstrated an ejection fraction of 25% [id number] mitral regurgitation mild tricuspid regurgitation is PA pressures estimated at 42 mmHg this currently she Has had a prior cardiac catheterization that was done with no angiographic coronary artery disease decreased LV function back in April 2007 done at [facility] Current issues av paced on athletic monitor [facility] Past Medical History Medical History Colon cancer screening RUQ pain Glaucoma DM2 (diabetes mellitus, type 2) CHF (congestive heart failure), NYHA class I Hyperlipidemia Hypertension Surgical History Surgical History History of cardiac catheterization Years ago at [place] and reportedly no significant coronary artery disease H/O dilation and curettage H/O: hysterectomy LUIS-BSO History of appendectomy exploratory laparotomy with appendectomy due to perforated appendicitis Family History Family History Father Acute myocardial infarction Diabetes mellitus Mother Acute myocardial infarction Diabetes mellitus Sibling Diabetes mellitus Social History Social History Social History: She lives with her significant other and has 1 son. She occasionally drinks alcohol such as a Brenda or a glass a wine. She works at the [employer]. Lifelong nonsmoker but is exposed to secondhand smoke. Code status full code Smoking status: Never smoker Alcohol intake: current Drinks per week: 1 Substance use: never Substance use type: does not use Lack of Transportation: No Lack of Food: Never True Current Housing: I Have Housing Concerned About Future Housing: No Difficulty Paying Gas/Electric Bills: No Difficulty Paying for Meds: No Currently Unemployed: No Education: Associate Degree Difficulty w/ Childcare or Family Care: No Spiritual care concerns: No Meds Home Medications and Allergies Home Medications Medication Instructions Recorded Confirmed Type brimonidine 0.15 % eye drops 1 drp DAILY 11/23/22 11/23/22 History dorzolamide 2 % eye drops 1 drp EACH EYE DAILY 11/23/22 11/23/22 History metformin 500 mg tablet,extended 500 mg PO BID 11/23/22 11/23/22 History release 24 hr rosuvastatin 20 mg tablet 20 mg PO DAILY 11/23/22 11/23/22 History sacubitril 49 mg-valsartan 51 mg 1 tablet PO BID 11/23/22 11/23/22 History tablet (Entresto) semaglutide 0.25 mg or 0.5 mg (2 1 mg subcut WEEKLY 11/23/22 11/23/22 History mg/1.5 mL) subcutaneous pen injector (Ozempic) aspirin 81 mg tablet,delayed 81 mg PO QAM #30 tabs 11/27/22 Rx release carvedilol 3.125 mg tablet (Coreg) 3.125 mg PO Q12HR #60 tabs 11/27/22 Rx furosemide 20 mg tablet 40 mg (2 x 20 mg) PO DAILY #30 tabs 11/27/22 11/23/22 Rx potassium chloride 20 mEq 20 meq PO DAILY@0800 #30 tabs 11/27/22 Rx tablet,extended release (K-Tab) Allergies Allergy/AdvReac Type Severity Reaction Status Date / Time No Known Allergies Allergy Verified 12/11/24 14:25 Vital Signs Vital Signs - 24 hr 12/11/24 13:21 12/11/24 14:20 12/11/24 14:20 Temperature 37.1 C Pulse Rate 87 78 Respiratory Rate 16 Blood Pressure 115/50 L Pulse Oximetry 95 96 Oxygen Delivery Room Air Room Air 12/11/24 14:20 12/11/24 14:31 12/11/24 14:47 Temperature Pulse Rate 89 77 75 Respiratory Rate 20 20 21 H Blood Pressure 106/49 L 107/50 L 120/50 L Pulse Oximetry 96 94 95 Oxygen Delivery 12/11/24 14:53 12/11/24 17:00 12/11/24 18:07 Temperature Pulse Rate 80 81 80 Respiratory Rate 24 H 19 Blood Pressure 120/50 L 110/96 H Pulse Oximetry 97 95 Oxygen Delivery 12/11/24 18:32 12/11/24 18:50 12/11/24 18:59 Temperature 36.8 C 36.9 C Pulse Rate 79 86 84 Respiratory Rate 19 19 18 Blood Pressure 99/56 L 104/58 L 104/57 L Pulse Oximetry 95 97 93 Oxygen Delivery 12/11/24 19:35 Temperature 36.9 C Pulse Rate 79 Respiratory Rate 17 Blood Pressure 128/54 L Pulse Oximetry 95 Oxygen Delivery Exam 2 Const: General: healthy appearing, comfortable and no acute distress HENMT: Head: normal to inspection, normocephalic and atraumatic Resp: Effort & Inspection: normal respiratory effort and able to speak in complete sentences Other: No rhonchi or wheezes are noted on exam Cardio: Rate: regular rate Rhythm: other (AV paced on athletic monitor) Heart sounds: S1 normal heart sound present, S2 normal heart sound present and Murmur heart sound present systolic Extrem: General: no pedal edema Results Labs and Meds 12/11/24 15:10 12/11/24 15:10 Lab results: Cardiac Enzymes 12/11/24 12/11/24 12/11/24 Range/Units 15:10 15:10 18:21 AST 36 (14-36) U/L Troponin I Cancelled 0.022 0.015 D Coagulation 12/11/24 Range/Units 15:09 PT 16.1 H (11.1-14.7) Seconds APTT 33.3 (22.3-36.8) Seconds CBC 12/11/24 Range/Units 15:10 WBC 13.7 H (4.5-10.0) K/mm3 RBC 4.02 L (4.2-5.4) M/mm3 Hgb 11.6 L (12.0-15.0) g/dL Hct 37.4 (37.0-47.0) % Plt Count 419 H D (150-375) k/mm3 Lymph # (Auto) 1.17 (0.9-3.2) K/mm3 Harris # (Auto) 1.0 H (0.1-0.6) K/mm3 Eos # (Auto) 0.1 (0-0.3) K/mm3 Baso # (Auto) 0.1 (0.0-0.1) K/mm3 Comprehensive Metabolic Panel 12/11/24 Range/Units 15:10 Sodium 142 (137-145) mmol/L Potassium 3.4 (3.4-5.0) mmol/L Chloride 104 (98-107) mmol/L Carbon Dioxide 29 (22-30) mmol/L BUN 16 (7-17) mg/dL Creatinine 1.06 H (0.7-1.0) mg/dL Glucose 93 (65-110) mg/dL Calcium 8.5 (8.4-10.2) mg/dL AST 36 (14-36) U/L ALT 25 (6-35) U/L Alkaline Phosphatase 115 (38-126) U/L Total Protein 8.0 (6.3-8.2) g/dL Albumin 3.6 (3.5-5.1) g/dL Intake and Output 12/11/24 12/11/24 12/11/24 07:59 15:59 23:59 Intake Total 300 Balance 300 Intake: IV 300 Azithromycin 500 mg/Ns 250 ml 250 500 mg In 250 ml @ 250 mls/hr IVPB ONCE STA Rx#:[id number] cefTRIAXone 1 GM/NS 50 ML 1 gm 50 In 50 ml @ 100 mls/hr IVPB ONCE STA Rx#:[id number] Patient Weight 12/11/24 23:59 Weight 104.1 kg
[2024-12-11 21:04] LABS: Glucose Point of Care 112 mg/dl (65-105)
[2024-12-11] MEDS: SACUBITRIL/VALSARTAN 49-51 MG TABLET 1 TABLET PO (23:15)
[2024-12-12] VITALS (20 sets, daily range): BP systolic 94–125; BP diastolic 44–62; PULSE 70–82; RESP 17–20; TEMP 36.3–36.9; O2SAT 94–96
[2024-12-12 00:03] LABS: Troponin I 0.021 ng/mL (0.000-0.034)
[2024-12-12] MEDS: guaiFENesin/DEXTROMETHORPHAN 10 ML UDC PO ×5 (02:00→21:08)
[2024-12-12 04:25] LABS: Basophils Absolute Auto 0.1 K/mm3 (0.0-0.1); Eosinophils Absolute Auto 0.3 K/mm3 (0-0.3); Eosinophils Percent Auto 3.5 % (0-4.4); Hematocrit 33.9 % (37.0-47.0); Hemoglobin 10.6 g/dL (12.0-15.0); Immature Granulocyte Absolute 0.04 K/mm3 (0.00-0.031); Immature Granulocyte Percent A 0.5 % (0-0.5); Lymphocytes Absolute Auto 1.58 K/mm3 (0.9-3.2); Lymphocytes Percent Auto 19.1 % (18.3-44.2); Mean Corpuscular HGB Conc 31.3 g/dl (32-36); Mean Corpuscular Hemoglobin 29.4 pg (26-34); Mean Corpuscular Volume 94.2 fl (80-100); Mean Platelet Volume 9.2 fl (7.4-10.4); Monocytes Absolute Auto 0.9 K/mm3 (0.1-0.6); Monocytes Percent Auto 10.8 % (2.6-8.5); Neutrophils Absolute Auto 5.4 K/mm3 (1.3-6.7); Neutrophils Percent Auto 65.1 % (45.5-73.1); Platelet Count Result 340 k/mm3 (150-375); White Blood Count 8.3 K/mm3 (4.5-10.0)
[2024-12-12 04:37] LABS: Anion Gap 9 mmol/L (4-12); Blood Urea Nitrogen 14 mg/dL (7-17); Calcium 8.3 mg/dL (8.4-10.2); Carbon Dioxide 25 mmol/L (22-30); Chloride 107 mmol/L (98-107); Estimated CRCL calculation 66 ml/min; Estimated Glomerular Filt Rate 58; Glucose 89 mg/dL (65-110); Potassium 3.1 mmol/L (3.4-5.0); Sodium 141 mmol/L (137-145)
--- NOTE | 2024-12-12 05:00 | ECG_ITS ---
Test Date: 2024-12-12 09:18:12 Measurements Intervals [place] Rate: 82 P: 34 NE: 202 QRS: 260 QRSD: 172 T: 40 QT: 472 QTc: 552 Interpretive Statements ELECTRONIC VENTRICULAR PACEMAKER ABNORMAL RHYTHM ECG Compared to ECG 12/11/2024 18:29:38 No significant changes Electronically Signed On 12-12-2024 14:59:49 CDT by Ilsa Benitez M.D.
[2024-12-12] MEDS: carvediloL 3.125 MG TABLET PO ×2 (05:53→13:44)
[2024-12-12 07:41] LABS: Glucose Point of Care 96 mg/dl (65-105)
--- NOTE | 2024-12-12 08:01 | P.PNCA_ITS ---
Progress Note: A&P Assessment and Plan (1) Ventricular tachycardia: Code(s): I47.20 - Ventricular tachycardia, unspecified Status: Acute Assessment and Plan: Increase Amiodarone 200 mg PO BID to prevent recurrence. Patient relates taking Mucinex and a few other decongestants for URI. 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 Replete potassium to at least 4.0. It is 3.1 today. Keep Mag at least 2.0, it was 1.9. (2) Defibrillator discharge: Code(s): Z45.02 - Encounter for adjustment and management of automatic implantable cardiac defibrillator Status: Acute (3) Nonischemic cardiomyopathy: Code(s): I42.8 - Other cardiomyopathies Status: Acute Assessment and Plan: 11/22/24 Echo: EF 25%, grade II diastolic dysfunction. (4) Hypertension: Code(s): I10 - Essential (primary) hypertension Status: Acute Assessment and Plan: Stable. (5) Hyperlipidemia: Code(s): E78.5 - Hyperlipidemia, unspecified Status: Acute Assessment and Plan: On Rosuvastatin. (6) Pneumonia: Qualifiers: Pneumonia type: due to unspecified organism Code(s): J18.9 - Pneumonia, unspecified organism Status: Acute Assessment and Plan: On antibiotics, managed by hospitalist. Subjective Date/time seen: 12/12/24 08:01 Interval history: Denies chest pain or sob. Exam Const: General: cooperative, healthy appearing and comfortable Resp: Auscultation: clear to auscultation bilaterally, no crackles, no rales, no rhonchi and no wheezes Cardio: Rate: regular rate Rhythm: regular rhythm Heart sounds: no murmurs Peripheral pulses: dorsalis pedis present GI: GI Palp: No abdominal tenderness and Yes Soft to palpation Neuro: General: oriented to person, oriented to place and oriented to time Extrem: Right lower extremity: no edema Left lower extremity: no edema Objective Data Vital Signs Vital Signs: Vital Signs - 24 hr 12/11/24 13:21 12/11/24 14:20 12/11/24 14:20 Temperature 98.7 F Pulse Rate 87 78 Respiratory Rate 16 Blood Pressure 115/50 L Pulse Oximetry 95 96 Oxygen Delivery Room Air Room Air 12/11/24 14:20 12/11/24 14:31 12/11/24 14:47 Temperature Pulse Rate 89 77 75 Respiratory Rate 20 20 21 H Blood Pressure 106/49 L 107/50 L 120/50 L Pulse Oximetry 96 94 95 Oxygen Delivery 12/11/24 14:53 12/11/24 17:00 12/11/24 18:07 Temperature Pulse Rate 80 81 80 Respiratory Rate 24 H 19 Blood Pressure 120/50 L 110/96 H Pulse Oximetry 97 95 Oxygen Delivery 12/11/24 18:32 12/11/24 18:50 12/11/24 18:59 Temperature 98.3 F 98.5 F Pulse Rate 79 86 84 Respiratory Rate 19 19 18 Blood Pressure 99/56 L 104/58 L 104/57 L Pulse Oximetry 95 97 93 Oxygen Delivery 12/11/24 19:35 12/11/24 20:00 12/11/24 20:00 Temperature 98.5 F Pulse Rate 79 76 Respiratory Rate 17 Blood Pressure 128/54 L Pulse Oximetry 95 Oxygen Delivery Room Air 12/11/24 20:43 12/11/24 22:00 12/11/24 23:29 Temperature 97.5 F L Pulse Rate 86 77 71 Respiratory Rate 17 Blood Pressure 85/49 L Pulse Oximetry 94 Oxygen Delivery 12/12/24 00:00 12/12/24 00:00 12/12/24 00:37 Temperature Pulse Rate 77 Respiratory Rate Blood Pressure 102/52 L Pulse Oximetry Oxygen Delivery Room Air 12/12/24 02:00 12/12/24 03:44 12/12/24 04:00 Temperature 97.7 F Pulse Rate 72 Respiratory Rate 18 Blood Pressure 94/62 L Pulse Oximetry 95 Oxygen Delivery Room Air 12/12/24 04:00 12/12/24 05:53 12/12/24 06:00 Temperature Pulse Rate 77 77 75 Respiratory Rate Blood Pressure Pulse Oximetry Oxygen Delivery 12/12/24 07:53 Temperature 98.5 F Pulse Rate 76 Respiratory Rate 18 Blood Pressure 102/44 L Pulse Oximetry 94 Oxygen Delivery Intake/Output Intake/Output: Intake & Output 12/09/24 12/10/24 12/11/24 12/12/24 23:59 23:59 23:59 23:59 Intake Total 1300 Balance 1300 Meds/Results Medications: Active Medications Generic Name Dose Route Start Last Admin Trade Name Freq PRN Reason Stop Dose Admin Acetaminophen 650 mg 12/11/24 17:16 Acetaminophen 325 Mg Tablet PO Q4H PRN Mild Pain (1-3) or Fever Aspirin 81 mg 12/12/24 09:00 Aspirin 81 Mg Enteric Tablet PO QAM [facility] Brimonidine Tartrate 1 drop 12/12/24 09:00 Brimonidine Tartrate 0.15% 5 Ml Ophth Soln EACH EYE BID [facility] Carvedilol 3.125 mg 12/11/24 22:00 12/12/24 05:53 Carvedilol 3.125 Mg Tablet PO 3.125 mg Q8HR [facility] Administration Dextrose 12.5 gm 12/11/24 17:18 Dextrose 50% 25 Gm/50 Ml Syringe IV PUSH PRN PRN Hypoglycemia Protocol Dorzolamide HCl 1 drop 12/12/24 09:00 Dorzolamide Hcl 2% Ophth Drops EACH EYE DAILY [facility] Doxycycline Hyclate 100 mg 12/12/24 09:00 Doxycycline Hyclate 100 Mg Tablet PO Q12HR [facility] Enoxaparin Sodium 40 mg 12/12/24 09:00 Enoxaparin 40 Mg/0.4 Ml Syringe SUB-Q DAILY [facility] Furosemide 40 mg 12/12/24 09:00 Furosemide 40 Mg Tablet PO DAILY [facility] Glucagon 1 mg 12/11/24 17:18 Glucagon For Inj 1 Mg Vial IM PRN PRN Hypoglycemia Protocol Glucose 15 gm 12/11/24 17:18 Glucose Oral Gel 15 Gm Of Glucse In 37.5 Gm Tube PO PRN PRN Hypoglycemia Protocol Guaifenesin/Dextromethorphan 10 ml 12/11/24 18:00 12/12/24 05:53 Guaifenesin/Dextromethorphan 10 Ml Udc PO 10 ml Q4H [facility] Administration Dextrose 1,000 mls @ 100 mls/hr 12/11/24 17:18 Dextrose 5% 1,000 Ml IVPB PRN PRN Hypoglycemia Protocol Ceftriaxone Sodium 1 gm in 50 mls @ 100 mls/hr 12/12/24 17:00 Rocephin 1 Gm/Ns 50 Ml IVPB Q24H [facility] Insulin Aspart 2 - 5 units 12/12/24 08:00 Insulin Aspart (*Bkc) 100 Units/Ml SUB-Q TIDWM [facility] Protocol Insulin Aspart 1 - 2 units 12/11/24 21:00 12/11/24 20:43 Insulin Aspart (*Bkc) 100 Units/Ml SUB-Q Not Given HS [facility] Protocol Rosuvastatin Calcium 10 mg 12/12/24 09:00 Rosuvastatin 10 Mg Tablet PO DAILY [facility] Sacubitril/Valsartan 1 tablet 12/11/24 22:35 12/11/24 23:15 Sacubitril/Valsartan 49-51 Mg Tablet PO 1 tablet Q12HR [facility] Administration Radiology Results: ITS Impressions Chest X-Ray 12/11/24 15:03 IMPRESSION: Cardiomegaly with cardiac decompensation and pulmonary edema. Superimposed pneumonia cannot be excluded. Labs Labs: Laboratory Results - last 24 hr 12/11/24 12/11/24 12/11/24 15:08 15:09 15:10 WBC 13.7 H RBC 4.02 L Hgb 11.6 L Hct 37.4 MCV 93.0 MCH 28.9 MCHC 31.0 L RDW 13.9 Plt Count 419 H D MPV 9.3 Immature Gran % (Auto) 0.5 Neut % (Auto) 82.4 H Lymph % (Auto) 8.5 L [place] % (Auto) 7.4 Eos % (Auto) 0.7 Baso % (Auto) 0.5 Lymph # (Auto) 1.17 [place] # (Auto) 1.0 H Eos # (Auto) 0.1 Baso # (Auto) 0.1 Abs Immat Gran (auto) 0.07 H Absolute Neuts (auto) 11.3 H Absolute Nucleated RBC 0.000 Nucleated RBC % 0.0 ESR 71 H PT 16.1 H INR 1.3 APTT 33.3 Sodium 142 Potassium 3.4 Chloride 104 Carbon Dioxide 29 Anion Gap 9 BUN 16 Creatinine 1.06 H Estim Creat Clear Calc 61 Estimated GFR 53 L Glucose 93 POC Capillary Glucose Lactic Acid Calcium 8.5 Phosphorus 3.8 Magnesium 1.9 Total Bilirubin 0.9 AST 36 ALT 25 Alkaline Phosphatase 115 Troponin I Cancelled C-Reactive Protein NT-Pro-B Natriuret Pep Total Protein Albumin Influenza A (RT-PCR) Influenza B (RT-PCR) RSV (RT-PCR) SARS-CoV-2 RNA (RT-PCR) 12/11/24 12/11/24 12/11/24 15:10 15:10 16:17 WBC RBC Hgb Hct MCV MCH MCHC RDW Plt Count MPV Immature Gran % (Auto) Neut % (Auto) Lymph % (Auto) [place] % (Auto) Eos % (Auto) Baso % (Auto) Lymph # (Auto) [place] # (Auto) Eos # (Auto) Baso # (Auto) Abs Immat Gran (auto) Absolute Neuts (auto) Absolute Nucleated RBC Nucleated RBC % ESR PT INR APTT Sodium Potassium Chloride Carbon Dioxide Anion Gap BUN Creatinine Estim Creat Clear Calc Estimated GFR Glucose POC Capillary Glucose Lactic Acid 0.9 Calcium Phosphorus Magnesium Total Bilirubin AST ALT Alkaline Phosphatase Troponin I 0.022 C-Reactive Protein 13.0 H NT-Pro-B Natriuret Pep 4770 H Cancelled Total Protein 8.0 Albumin 3.6 Influenza A (RT-PCR) Negative Influenza B (RT-PCR) Negative RSV (RT-PCR) Negative SARS-CoV-2 RNA (RT-PCR) Negative 12/11/24 12/11/24 12/11/24 17:47 18:21 20:42 WBC RBC Hgb Hct MCV MCH MCHC RDW Plt Count MPV Immature Gran % (Auto) Neut % (Auto) Lymph % (Auto) [place] % (Auto) Eos % (Auto) Baso % (Auto) Lymph # (Auto) [place] # (Auto) Eos # (Auto) Baso # (Auto) Abs Immat Gran (auto) Absolute Neuts (auto) Absolute Nucleated RBC Nucleated RBC % ESR PT INR APTT Sodium Potassium Chloride Carbon Dioxide Anion Gap BUN Creatinine Estim Creat Clear Calc Estimated GFR Glucose POC Capillary Glucose 80 112 H Lactic Acid Calcium Phosphorus Magnesium Total Bilirubin AST ALT Alkaline Phosphatase Troponin I 0.015 D C-Reactive Protein NT-Pro-B Natriuret Pep Total Protein Albumin Influenza A (RT-PCR) Influenza B (RT-PCR) RSV (RT-PCR) SARS-CoV-2 RNA (RT-PCR) 12/11/24 12/12/24 12/12/24 23:29 03:49 07:28 WBC 8.3 RBC 3.60 L Hgb 10.6 L Hct 33.9 L MCV 94.2 MCH 29.4 MCHC 31.3 L RDW 14.0 Plt Count 340 MPV 9.2 Immature Gran % (Auto) 0.5 Neut % (Auto) 65.1 Lymph % (Auto) 19.1 [place] % (Auto) 10.8 H Eos % (Auto) 3.5 Baso % (Auto) 1.0 Lymph # (Auto) 1.58 [place] # (Auto) 0.9 H Eos # (Auto) 0.3 Baso # (Auto) 0.1 Abs Immat Gran (auto) 0.04 H Absolute Neuts (auto) 5.4 Absolute Nucleated RBC 0.000 Nucleated RBC % 0.0 ESR PT INR APTT Sodium 141 Potassium 3.1 L Chloride 107 Carbon Dioxide 25 Anion Gap 9 BUN 14 Creatinine 0.98 Estim Creat Clear Calc 66 Estimated GFR 58 L Glucose 89 POC Capillary Glucose 96 Lactic Acid Calcium 8.3 L Phosphorus Magnesium Total Bilirubin AST ALT Alkaline Phosphatase Troponin I 0.021 D C-Reactive Protein NT-Pro-B Natriuret Pep Total Protein Albumin Influenza A (RT-PCR) Influenza B (RT-PCR) RSV (RT-PCR) SARS-CoV-2 RNA (RT-PCR)
[2024-12-12] MEDS: SACUBITRIL/VALSARTAN 49-51 MG TABLET 1 TABLET PO ×2 (08:48→21:08)
[2024-12-12] MEDS: ENOXAPARIN 40 MG/0.4 ML SYRINGE SUB-Q (08:48)
[2024-12-12] MEDS: ROSUVASTATIN 10 MG TABLET PO (08:48)
[2024-12-12] MEDS: FUROSEMIDE 40 MG TABLET PO (08:49)
[2024-12-12] MEDS: ASPIRIN 81 MG ENTERIC TABLET PO (08:49)
[2024-12-12] MEDS: AMIODARONE HCL 200 MG TABLET PO ×2 (08:49→16:46)
[2024-12-12] MEDS: DOXYCYCLINE HYCLATE 100 MG TABLET PO ×2 (08:49→21:08)
[2024-12-12] MEDS: POTASSIUM CHLORIDE 20 MEQ ER TABLET 40 MEQ PO (09:09)
[2024-12-12] MEDS: BRIMONIDINE TARTRATE 0.15% 5 ML OPHTH SOLN 1 DROP EACH EYE ×2 (09:09→16:47)
[2024-12-12] MEDS: DORZOLAMIDE HCL 2% OPHTH DROPS 1 DROP EACH EYE (09:09)
[2024-12-12 11:40] LABS: Glucose Point of Care 111 mg/dl (65-105)
[2024-12-12 15:27] LABS: Glucose Point of Care 103 mg/dl (65-105)
--- NOTE | 2024-12-12 16:18 | P.PNIM_ITS ---
Progress Note: A&P Assessment and Plan (1) Ventricular tachycardia: Code(s): I47.20 - Ventricular tachycardia, unspecified Status: Acute Assessment and Plan: Cardiology consulted pending recommendations Recommend Coreg Q 8 instead of b.i.d. 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 to check QTC (3) Hyperlipidemia: Code(s): E78.5 - Hyperlipidemia, unspecified Status: Acute Assessment and Plan: Continue statin (4) DM2 (diabetes mellitus, type 2): Code(s): E11.9 - Type 2 diabetes mellitus without complications Status: Acute Assessment and Plan: Hold home of Amy while in hospital Diabetic diet SSI Plan 59 y/o female with history of cardiomyopathy had URI and took OTC decongestion wich triggered ventricular tachy fibrillation and she had a defibrillator shock of 40 joules and converted AV paced, patient is placed ib amiodarone 200mg PO BID to suppress vertical fibrillation, no clinically stable has no complaints of CP, patient will need to follow up with her primary bounty hunter, will monitor plan, possibly discharge her tomorrow. Subjective Date/time seen: 12/12/24 16:18 Interval history: 59 y/o female with history of cardiomyopathy had URI and took OTC decongestion wich triggered ventricular tachy fibrillation and she had a defibrillator shock of 40 joules and converted AV paced, patient is placed ib amiodarone 200mg PO BID to suppress vertical fibrillation, no clinically stable has no complaints of CP, patient will need to follow up with her primary bounty hunter, will monitor plan, possibly discharge her tomorrow. Review of Systems Review of Systems: 12 systems were reviewed and are negativ e except for as per HPI. Exam Narrative: Patient is comfortable, NAD HEENT: eyes are clear and none icteric LUNGS:CTA HEART: RR S1S2 ABD: BS+, Soft and nontender Lower extremities: no edema SKIN: nonjaundiced Neuro: grossly intact. Objective Data Vital Signs Vital Signs: Vital Signs - 24 hr 12/11/24 17:00 12/11/24 18:07 12/11/24 18:32 Temperature Pulse Rate 81 80 79 Respiratory Rate 19 19 Blood Pressure 110/96 H 99/56 L Pulse Oximetry 95 95 Oxygen Delivery 12/11/24 18:50 12/11/24 18:59 12/11/24 19:35 Temperature 36.8 C 36.9 C 36.9 C Pulse Rate 86 84 79 Respiratory Rate 19 18 17 Blood Pressure 104/58 L 104/57 L 128/54 L Pulse Oximetry 97 93 95 Oxygen Delivery 12/11/24 20:00 12/11/24 20:00 12/11/24 20:43 Temperature Pulse Rate 76 86 Respiratory Rate Blood Pressure Pulse Oximetry Oxygen Delivery Room Air 12/11/24 22:00 12/11/24 23:29 12/12/24 00:00 Temperature 36.4 C L Pulse Rate 77 71 Respiratory Rate 17 Blood Pressure 85/49 L Pulse Oximetry 94 Oxygen Delivery Room Air 12/12/24 00:00 12/12/24 00:37 12/12/24 02:00 Temperature Pulse Rate 77 72 Respiratory Rate Blood Pressure 102/52 L Pulse Oximetry Oxygen Delivery 12/12/24 03:44 12/12/24 04:00 12/12/24 04:00 Temperature 36.5 C Pulse Rate 77 Respiratory Rate 18 Blood Pressure 94/62 L Pulse Oximetry 95 Oxygen Delivery Room Air 12/12/24 05:53 12/12/24 06:00 12/12/24 07:53 Temperature 36.9 C Pulse Rate 77 75 76 Respiratory Rate 18 Blood Pressure 102/44 L Pulse Oximetry 94 Oxygen Delivery 12/12/24 08:00 12/12/24 08:00 12/12/24 08:49 Temperature Pulse Rate 76 80 78 Respiratory Rate 18 Blood Pressure Pulse Oximetry 94 Oxygen Delivery Room Air 12/12/24 10:00 12/12/24 11:40 12/12/24 12:00 Temperature 36.9 C Pulse Rate 73 70 70 Respiratory Rate 20 20 Blood Pressure 125/57 L Pulse Oximetry 95 95 Oxygen Delivery Room Air 12/12/24 12:00 12/12/24 13:44 12/12/24 16:01 Temperature 36.7 C Pulse Rate 79 76 80 Respiratory Rate 20 Blood Pressure 125/57 L Pulse Oximetry 96 Oxygen Delivery Intake/Output Intake/Output: Intake & Output 12/09/24 12/10/24 12/11/24 12/12/24 23:59 23:59 23:59 23:59 Intake Total 1300 480 Balance 1300 480 Meds/Results Medications: Active Medications Generic Name Dose Route Start Last Admin Trade Name Freq PRN Reason Stop Dose Admin Acetaminophen 650 mg 12/11/24 17:16 Acetaminophen 325 Mg Tablet PO Q4H PRN Mild Pain (1-3) or Fever Amiodarone HCl 200 mg 12/12/24 09:00 12/12/24 08:49 Amiodarone Hcl 200 Mg Tablet PO 200 mg BIDWM [facility] Administration Aspirin 81 mg 12/12/24 09:00 12/12/24 08:49 Aspirin 81 Mg Enteric Tablet PO 81 mg QAM [facility] Administration Brimonidine Tartrate 1 drop 12/12/24 09:00 12/12/24 09:09 Brimonidine Tartrate 0.15% 5 Ml Ophth Soln EACH EYE 1 drop BID [facility] Administration Carvedilol 3.125 mg 12/11/24 22:00 12/12/24 13:44 Carvedilol 3.125 Mg Tablet PO 3.125 mg Q8HR [facility] Administration Dextrose 12.5 gm 12/11/24 17:18 Dextrose 50% 25 Gm/50 Ml Syringe IV PUSH PRN PRN Hypoglycemia Protocol Dorzolamide HCl 1 drop 12/12/24 09:00 12/12/24 09:09 Dorzolamide Hcl 2% Ophth Drops EACH EYE 1 drop DAILY [facility] Administration Doxycycline Hyclate 100 mg 12/12/24 09:00 12/12/24 08:49 Doxycycline Hyclate 100 Mg Tablet PO 100 mg Q12HR [facility] Administration Enoxaparin Sodium 40 mg 12/12/24 09:00 12/12/24 08:48 Enoxaparin 40 Mg/0.4 Ml Syringe SUB-Q 40 mg DAILY [facility] Administration Furosemide 40 mg 12/12/24 09:00 12/12/24 08:49 Furosemide 40 Mg Tablet PO 40 mg DAILY [facility] Administration Glucagon 1 mg 12/11/24 17:18 Glucagon For Inj 1 Mg Vial IM PRN PRN Hypoglycemia Protocol Glucose 15 gm 12/11/24 17:18 Glucose Oral Gel 15 Gm Of Glucse In 37.5 Gm Tube PO PRN PRN Hypoglycemia Protocol Guaifenesin/Dextromethorphan 10 ml 12/11/24 18:00 12/12/24 13:43 Guaifenesin/Dextromethorphan 10 Ml Udc PO 10 ml Q4H [facility] Administration Dextrose 1,000 mls @ 100 mls/hr 12/11/24 17:18 Dextrose 5% 1,000 Ml IVPB PRN PRN Hypoglycemia Protocol Ceftriaxone Sodium 1 gm in 50 mls @ 100 mls/hr 12/12/24 17:00 Rocephin 1 Gm/Ns 50 Ml IVPB Q24H [facility] Insulin Aspart 2 - 5 units 12/12/24 08:00 12/12/24 12:02 Insulin Aspart (*Bkc) 100 Units/Ml SUB-Q Not Given TIDWM [facility] Protocol Insulin Aspart 1 - 2 units 12/11/24 21:00 12/11/24 20:43 Insulin Aspart (*Bkc) 100 Units/Ml SUB-Q Not Given HS [facility] Protocol Rosuvastatin Calcium 10 mg 12/12/24 09:00 12/12/24 08:48 Rosuvastatin 10 Mg Tablet PO 10 mg DAILY [facility] Administration Sacubitril/Valsartan 1 tablet 12/11/24 22:35 12/12/24 08:48 Sacubitril/Valsartan 49-51 Mg Tablet PO 1 tablet Q12HR [facility] Administration Radiology Results: ITS Impressions Chest X-Ray 12/11/24 15:03 IMPRESSION: Cardiomegaly with cardiac decompensation and pulmonary edema. Superimposed pneumonia cannot be excluded. Labs Labs: Laboratory Results - last 24 hr 12/11/24 12/11/24 12/11/24 15:09 15:10 16:17 WBC RBC Hgb Hct MCV MCH MCHC RDW Plt Count MPV Immature Gran % (Auto) Neut % (Auto) Lymph % (Auto) [place] % (Auto) Eos % (Auto) Baso % (Auto) Lymph # (Auto) [place] # (Auto) Eos # (Auto) Baso # (Auto) Abs Immat Gran (auto) Absolute Neuts (auto) Absolute Nucleated RBC Nucleated RBC % PT 16.1 H INR 1.3 APTT 33.3 Sodium Potassium Chloride Carbon Dioxide Anion Gap BUN Creatinine Estim Creat Clear Calc Estimated GFR Glucose POC Capillary Glucose Lactic Acid 0.9 Calcium Phosphorus 3.8 Magnesium 1.9 Troponin I 12/11/24 12/11/24 12/11/24 17:47 18:21 20:42 WBC RBC Hgb Hct MCV MCH MCHC RDW Plt Count MPV Immature Gran % (Auto) Neut % (Auto) Lymph % (Auto) [place] % (Auto) Eos % (Auto) Baso % (Auto) Lymph # (Auto) [place] # (Auto) Eos # (Auto) Baso # (Auto) Abs Immat Gran (auto) Absolute Neuts (auto) Absolute Nucleated RBC Nucleated RBC % PT INR APTT Sodium Potassium Chloride Carbon Dioxide Anion Gap BUN Creatinine Estim Creat Clear Calc Estimated GFR Glucose POC Capillary Glucose 80 112 H Lactic Acid Calcium Phosphorus Magnesium Troponin I 0.015 D 12/11/24 12/12/24 12/12/24 23:29 03:49 07:28 WBC 8.3 RBC 3.60 L Hgb 10.6 L Hct 33.9 L MCV 94.2 MCH 29.4 MCHC 31.3 L RDW 14.0 Plt Count 340 MPV 9.2 Immature Gran % (Auto) 0.5 Neut % (Auto) 65.1 Lymph % (Auto) 19.1 [place] % (Auto) 10.8 H Eos % (Auto) 3.5 Baso % (Auto) 1.0 Lymph # (Auto) 1.58 [place] # (Auto) 0.9 H Eos # (Auto) 0.3 Baso # (Auto) 0.1 Abs Immat Gran (auto) 0.04 H Absolute Neuts (auto) 5.4 Absolute Nucleated RBC 0.000 Nucleated RBC % 0.0 PT INR APTT Sodium 141 Potassium 3.1 L Chloride 107 Carbon Dioxide 25 Anion Gap 9 BUN 14 Creatinine 0.98 Estim Creat Clear Calc 66 Estimated GFR 58 L Glucose 89 POC Capillary Glucose 96 Lactic Acid Calcium 8.3 L Phosphorus Magnesium Troponin I 0.021 D 12/12/24 12/12/24 11:21 15:21 WBC RBC Hgb Hct MCV MCH MCHC RDW Plt Count MPV Immature Gran % (Auto) Neut % (Auto) Lymph % (Auto) [place] % (Auto) Eos % (Auto) Baso % (Auto) Lymph # (Auto) [place] # (Auto) Eos # (Auto) Baso # (Auto) Abs Immat Gran (auto) Absolute Neuts (auto) Absolute Nucleated RBC Nucleated RBC % PT INR APTT Sodium Potassium Chloride Carbon Dioxide Anion Gap BUN Creatinine Estim Creat Clear Calc Estimated GFR Glucose POC Capillary Glucose 111 H 103 Lactic Acid Calcium Phosphorus Magnesium Troponin I Quality VTE Prophylaxis VTE prophylaxis: mechanical ordered and pharmacologic ordered
[2024-12-12 21:01] LABS: Glucose Point of Care 116 mg/dl (65-105)
[2024-12-13] VITALS: PULSE 76
[2024-12-13 04:00] VITALS: PULSE 82
[2024-12-13 04:07] VITALS: BP 104/50; PULSE 80; RESP 17; TEMP 36.5; O2SAT 97
[2024-12-13] MEDS: guaiFENesin/DEXTROMETHORPHAN 10 ML UDC PO (04:10)
[2024-12-13 04:16] LABS: Hematocrit 32.6 % (37.0-47.0); Hemoglobin 10.2 g/dL (12.0-15.0); Mean Corpuscular HGB Conc 31.3 g/dl (32-36); Mean Corpuscular Hemoglobin 28.8 pg (26-34); Mean Corpuscular Volume 92.1 fl (80-100); Platelet Count Result 346 k/mm3 (150-375); Red Blood Count 3.54 M/mm3 (4.2-5.4); White Blood Count 9.2 K/mm3 (4.5-10.0)
[2024-12-13 04:32] LABS: Anion Gap 7 mmol/L (4-12); Blood Urea Nitrogen 11 mg/dL (7-17); Calcium 8.5 mg/dL (8.4-10.2); Carbon Dioxide 25 mmol/L (22-30); Chloride 107 mmol/L (98-107); Estimated CRCL calculation 63 ml/min; Estimated Glomerular Filt Rate 55; Glucose 91 mg/dL (65-110); Magnesium 1.8 mg/dL (1.6-2.3); Potassium 3.3 mmol/L (3.4-5.0); Sodium 139 mmol/L (137-145)
--- NOTE | 2024-12-13 07:42 | PM.PNCARD ---
Progress Note: A&P Assessment and Plan (1) Ventricular tachycardia: Code(s): I47.20 - Ventricular tachycardia, unspecified Status: Acute Assessment and Plan: Increased Amiodarone 200 mg PO BID to prevent recurrence. Patient relates taking Mucinex and a few other decongestants for URI prior to this event. Replete potassium to at least 4.0. It is 3.3 today. Keep Mag at least 2.0, it was 1.8. Increase KCl 40 meq BID and start MagOx 400 mg daily. Monitor electrolytes in next few days if she gets discharged home. 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 (2) Defibrillator discharge: Code(s): Z45.02 - Encounter for adjustment and management of automatic implantable cardiac defibrillator Status: Acute (3) Nonischemic cardiomyopathy: Code(s): I42.8 - Other cardiomyopathies Status: Acute Assessment and Plan: 11/22/24 Echo: EF 25%, grade II diastolic dysfunction. (4) Hypertension: Code(s): I10 - Essential (primary) hypertension Status: Acute Assessment and Plan: Stable. (5) Hyperlipidemia: Code(s): E78.5 - Hyperlipidemia, unspecified Status: Acute Assessment and Plan: On Rosuvastatin. (6) Pneumonia: Qualifiers: Pneumonia type: due to unspecified organism Code(s): J18.9 - Pneumonia, unspecified organism Status: Acute Assessment and Plan: On antibiotics, managed by hospitalist. Subjective Date/time seen: 12/13/24 07:42 Interval history: Denies chest pain or sob. She wants to go home. Exam Const: General: cooperative, healthy appearing and comfortable Orientation/consciousness: oriented to person, oriented to place and oriented to time Resp: Auscultation: clear to auscultation bilaterally, no crackles, no rales, no rhonchi and no wheezes Cardio: Rate: regular rate Rhythm: regular rhythm Heart sounds: no murmurs Peripheral pulses: dorsalis pedis present Neuro: General: oriented to person, oriented to place and oriented to time Extrem: Right lower extremity: no edema Left lower extremity: no edema Objective Data Vital Signs Vital Signs: Vital Signs - 24 hr 12/12/24 07:53 12/12/24 08:00 12/12/24 08:00 Temperature 98.5 F Pulse Rate 76 76 80 Respiratory Rate 18 18 Blood Pressure 102/44 L Pulse Oximetry 94 94 Oxygen Delivery Room Air 12/12/24 08:49 12/12/24 10:00 12/12/24 11:40 Temperature 98.4 F Pulse Rate 78 73 70 Respiratory Rate 20 Blood Pressure 125/57 L Pulse Oximetry 95 Oxygen Delivery 12/12/24 12:00 12/12/24 12:00 12/12/24 13:44 Temperature Pulse Rate 70 79 76 Respiratory Rate 20 Blood Pressure Pulse Oximetry 95 Oxygen Delivery Room Air 12/12/24 16:00 12/12/24 16:01 12/12/24 16:46 Temperature 98.1 F Pulse Rate 82 80 78 Respiratory Rate 20 Blood Pressure 125/57 L Pulse Oximetry 96 Oxygen Delivery 12/12/24 19:38 12/12/24 20:00 12/12/24 20:00 Temperature 98.5 F Pulse Rate 77 75 75 Respiratory Rate 18 18 Blood Pressure 98/55 L Pulse Oximetry 95 95 Oxygen Delivery Room Air 12/12/24 23:55 12/13/24 00:00 12/13/24 04:00 Temperature 97.4 F L Pulse Rate 77 76 82 Respiratory Rate 17 Blood Pressure 109/57 L Pulse Oximetry 96 Oxygen Delivery 12/13/24 04:07 Temperature 97.7 F Pulse Rate 80 Respiratory Rate 17 Blood Pressure 104/50 L Pulse Oximetry 97 Oxygen Delivery Intake/Output Intake/Output: Intake & Output 12/10/24 12/11/24 12/12/24 12/13/24 23:59 23:59 23:59 23:59 Intake Total 1300 1220 Balance 1300 1220 Meds/Results Medications: Active Medications Generic Name Dose Route Start Last Admin Trade Name Freq PRN Reason Stop Dose Admin Acetaminophen 650 mg 12/11/24 17:16 Acetaminophen 325 Mg Tablet PO Q4H PRN Mild Pain (1-3) or Fever Amiodarone HCl 200 mg 12/12/24 09:00 12/12/24 16:46 Amiodarone Hcl 200 Mg Tablet PO 200 mg BIDWM NEMESIO Administration Aspirin 81 mg 12/12/24 09:00 12/12/24 08:49 Aspirin 81 Mg Enteric Tablet PO 81 mg QAM NEMESIO Administration Brimonidine Tartrate 1 drop 12/12/24 09:00 12/12/24 16:47 Brimonidine Tartrate 0.15% 5 Ml Ophth Soln EACH EYE 1 drop BID NEMESIO Administration Carvedilol 3.125 mg 12/13/24 09:00 Carvedilol 3.125 Mg Tablet PO Q12HR NEMESIO Dextrose 12.5 gm 12/11/24 17:18 Dextrose 50% 25 Gm/50 Ml Syringe IV PUSH PRN PRN Hypoglycemia Protocol Dorzolamide HCl 1 drop 12/12/24 09:00 12/12/24 09:09 Dorzolamide Hcl 2% Ophth Drops EACH EYE 1 drop DAILY NEMESIO Administration Doxycycline Hyclate 100 mg 12/12/24 09:00 12/12/24 21:08 Doxycycline Hyclate 100 Mg Tablet PO 100 mg Q12HR NEMESIO Administration Enoxaparin Sodium 40 mg 12/12/24 09:00 12/12/24 08:48 Enoxaparin 40 Mg/0.4 Ml Syringe SUB-Q 40 mg DAILY NEMESIO Administration Furosemide 40 mg 12/12/24 09:00 12/12/24 08:49 Furosemide 40 Mg Tablet PO 40 mg DAILY NEMESIO Administration Glucagon 1 mg 12/11/24 17:18 Glucagon For Inj 1 Mg Vial IM PRN PRN Hypoglycemia Protocol Glucose 15 gm 12/11/24 17:18 Glucose Oral Gel 15 Gm Of Glucse In 37.5 Gm Tube PO PRN PRN Hypoglycemia Protocol Guaifenesin/Dextromethorphan 10 ml 12/11/24 18:00 12/13/24 04:10 Guaifenesin/Dextromethorphan 10 Ml Udc PO 10 ml Q4H NEMESIO Administration Dextrose 1,000 mls @ 100 mls/hr 12/11/24 17:18 Dextrose 5% 1,000 Ml IVPB PRN PRN Hypoglycemia Protocol Ceftriaxone Sodium 1 gm in 50 mls @ 100 mls/hr 12/12/24 17:00 12/12/24 16:47 Rocephin 1 Gm/Ns 50 Ml IVPB 100 mls/hr Q24H NEMESIO Administration Insulin Aspart 2 - 5 units 12/12/24 08:00 12/12/24 16:46 Insulin Aspart (*Bkc) 100 Units/Ml SUB-Q Not Given TIDWM NEMESIO Protocol Insulin Aspart 1 - 2 units 12/11/24 21:00 12/12/24 21:08 Insulin Aspart (*Bkc) 100 Units/Ml SUB-Q Not Given HS [facility] Protocol Magnesium Oxide 400 mg 12/13/24 09:00 Magnesium Oxide 400 Mg Tablet PO DAILY [facility] Potassium Chloride 40 meq 12/13/24 08:00 Potassium Chloride 20 Meq Er Tablet PO BIDWM [facility] Rosuvastatin Calcium 10 mg 12/12/24 09:00 12/12/24 08:48 Rosuvastatin 10 Mg Tablet PO 10 mg DAILY [facility] Administration Sacubitril/Valsartan 1 tablet 12/11/24 22:35 12/12/24 21:08 Sacubitril/Valsartan 49-51 Mg Tablet PO 1 tablet Q12HR NEMESIO Administration Radiology Results: ITS Impressions Chest X-Ray 12/11/24 15:03 IMPRESSION: Cardiomegaly with cardiac decompensation and pulmonary edema. Superimposed pneumonia cannot be excluded. Labs Labs: Laboratory Results - last 24 hr 12/12/24 12/12/24 12/12/24 11:21 15:21 20:59 WBC RBC Hgb Hct MCV MCH MCHC RDW Plt Count MPV Sodium Potassium Chloride Carbon Dioxide Anion Gap BUN Creatinine Estim Creat Clear Calc Estimated GFR Glucose POC Capillary Glucose 111 H 103 116 H Calcium Magnesium 12/13/24 03:44 WBC 9.2 RBC 3.54 L Hgb 10.2 L Hct 32.6 L MCV 92.1 MCH 28.8 MCHC 31.3 L RDW 14.0 Plt Count 346 MPV 9.0 Sodium 139 Potassium 3.3 L Chloride 107 Carbon Dioxide 25 Anion Gap 7 BUN 11 Creatinine 1.02 H Estim Creat Clear Calc 63 Estimated GFR 55 L Glucose 91 POC Capillary Glucose Calcium 8.5 Magnesium 1.8
[2024-12-13 07:56] LABS: Glucose Point of Care 99 mg/dl (65-105)
[2024-12-13 08:00] VITALS: PULSE 79; PULSE 94; RESP 18; O2SAT 94
[2024-12-13 08:06] VITALS: BP 99/51; PULSE 76; RESP 18; TEMP 36.8; O2SAT 94
[2024-12-13] MEDS: DORZOLAMIDE HCL 2% OPHTH DROPS 1 DROP EACH EYE (09:00)
[2024-12-13] MEDS: BRIMONIDINE TARTRATE 0.15% 5 ML OPHTH SOLN 1 DROP EACH EYE (09:00)
[2024-12-13] MEDS: AMIODARONE HCL 200 MG TABLET PO (09:00)
[2024-12-13] MEDS: ENOXAPARIN 40 MG/0.4 ML SYRINGE SUB-Q (09:00)
[2024-12-13] MEDS: POTASSIUM CHLORIDE 20 MEQ ER TABLET 40 MEQ PO (09:01)
[2024-12-13] MEDS: ASPIRIN 81 MG ENTERIC TABLET PO (09:01)
[2024-12-13] MEDS: FUROSEMIDE 40 MG TABLET PO (09:01)
[2024-12-13 09:02] VITALS: PULSE 84
[2024-12-13] MEDS: ROSUVASTATIN 10 MG TABLET PO (09:02)
[2024-12-13] MEDS: carvediloL 3.125 MG TABLET PO (09:02)
[2024-12-13] MEDS: SACUBITRIL/VALSARTAN 49-51 MG TABLET 1 TABLET PO (09:02)
[2024-12-13] MEDS: MAGNESIUM OXIDE 400 MG TABLET PO (09:02)
[2024-12-13] MEDS: DOXYCYCLINE HYCLATE 100 MG TABLET PO (09:02)
--- NOTE | 2024-12-13 09:58 | PM.DS ---
DS: Admitting Diagnosis Discharge Date 12/13/24 Admitting Diagnosis V-tach DS: Discharge Diagnosis Discharge Diagnosis (1) Ventricular tachycardia: Code(s): I47.20 - Ventricular tachycardia, unspecified Status: Acute Assessment and Plan: Cardiology consulted pending recommendations Recommend Coreg Q 8 instead of b.i.d. 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 to check QTC (3) Hyperlipidemia: Code(s): E78.5 - Hyperlipidemia, unspecified Status: Acute Assessment and Plan: Continue statin (4) DM2 (diabetes mellitus, type 2): Code(s): E11.9 - Type 2 diabetes mellitus without complications Status: Acute Assessment and Plan: Hold home [facility] and [facility] while in hospital Diabetic diet SSI Plan 59 y/o female with history of cardiomyopathy had URI and took OTC decongestion wich triggered ventricular tachy fibrillation and she had a defibrillator shock of 40 joules and converted AV paced, patient is placed ib amiodarone 200mg PO BID to suppress vertical fibrillation, no clinically stable has no complaints of CP, patient will need to follow up with her primary cover marker, will monitor plan, possibly discharge her tomorrow. DS: Summary Hospital Course Hospital Course: 59 y/o female with history of cardiomyopathy had URI and took OTC decongestion wich triggered ventricular tachy fibrillation and she had a defibrillator shock of 40 joules and converted AV paced, patient is placed on amiodarone 200mg PO BID to suppress vertical fibrillation, now clinically stable has no complaints of CP, patient will need to follow up with her primary cover marker, today patient HR is normal, patient is clinically stable and has no complaints, will discharge today. Time Spent with Patient Time attestation: Total time spent providing and/or coordinating discharge services: Exam Narrative: Patient is comfortable, NAD HEENT: eyes are clear and none icteric LUNGS:CTA HEART: RR S1S2 ABD: BS+, Soft and nontender Lower extremities: no edema SKIN: nonjaundiced Neuro: grossly intact. DS: Data Data Completed and Pending Labs on day of discharge: Labs from last 24 hours 12/13/24 12/13/24 12/12/24 07:30 03:44 20:59 WBC 9.2 RBC 3.54 L Hgb 10.2 L Hct 32.6 L MCV 92.1 MCH 28.8 MCHC 31.3 L RDW 14.0 Plt Count 346 MPV 9.0 Sodium 139 Potassium 3.3 L Chloride 107 Carbon Dioxide 25 Anion Gap 7 BUN 11 Creatinine 1.02 H Estim Creat Clear Calc 63 Estimated GFR 55 L Glucose 91 POC Capillary Glucose 99 116 H Calcium 8.5 Magnesium 1.8 12/12/24 12/12/24 15:21 11:21 WBC RBC Hgb Hct MCV MCH MCHC RDW Plt Count MPV Sodium Potassium Chloride Carbon Dioxide Anion Gap BUN Creatinine Estim Creat Clear Calc Estimated GFR Glucose POC Capillary Glucose 103 111 H Calcium Magnesium Preliminary micro results at discharge 12/11/24 16:20 Blood Culture - Preliminary Blood 12/11/24 16:30 Blood Culture - Preliminary Blood Discharge Plan Discharge Attending physician on discharge: Domingo Morris Consulting providers: Corine Poe; Peterson Webster; Ilsa Benitez; Lupe Flowers; Lawanda Cristina; Jared Marrero Discharging Clinician: Domingo Morris Patient Disposition: Home Activity: as tolerated Diet: heart healthy Discharge Instructions: patient to follow up with her primary care provider and her cover marker as soon as 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 patient is instructed is any symptoms redevelop to go nearest ER. Patient Instructions: Antibiotic Form, Heart Failure (DC), Type 2 Diabetes Management for Adults (DC) Patient Language: Brazilian Stand Alone Forms: General Discharge Information Follow-up/Referrals: Bernadette,Savage Dumont MD [Primary Care Provider] - Corine Poe MD [Physician] - Discharge Medications: New amiodarone [Pacerone] 200 mg Tablet 200 mg PO BIDWM Qty: 60 0RF magnesium oxide 400 mg (241.3 mg magnesium) Tablet 400 mg PO DAILY Qty: 30 0RF doxycycline hyclate 100 mg Tablet 100 mg PO Q12HR Qty: 10 0RF potassium chloride [K-Tab] 20 mEq tablet extended release 40 meq PO BID Qty: 14 0RF Continued brimonidine 0.15 % drops 1 drp EACH EYE BID dorzolamide 2 % drops 1 drp EACH EYE DAILY Entresto 49-51 mg tablet 1 tablet PO BID rosuvastatin 20 mg tablet 20 mg PO DAILY Ozempic 0.25 mg or 0.5 mg(2 mg/1.5 mL) pen injector 1 mg SUBCUT WEEKLY Rx Instructions: aspirin 81 mg Tablet,Delayed Release (Dr/Ec) 81 mg PO QAM Qty: 30 0RF carvedilol [Coreg] 3.125 mg Tablet 3.125 mg PO Q12HR Qty: 60 0RF furosemide 20 mg tablet 40 mg PO DAILY Qty: 30 0RF rosuvastatin 10 mg tablet 10 mg PO DAILY cholecalciferol (vitamin D3) 50 mcg (2,000 unit) capsule 50 mcg PO DAILY dapagliflozin propanediol [Farxiga] 10 mg tablet 10 mg PO DAILY Discontinued amiodarone 200 mg tablet 200 mg PO DAILY Other Ambulatory Orders: Basic Metabolic Panel (Routine) Timeframe: 2 Days Location: Determined by Patient Ordered By: Domingo Morris Magnesium (Routine) Timeframe: 2 Days Location: Determined by Patient Ordered By: Domingo Morris Date of admission: 12/11/24 18:55 Primary Care Provider: Bernadette,Savage Dumont Admitting Provider: Domingo Morris Attending physician on admission: Domingo Morris Condition: Stable
--- NOTE | 2024-12-13 10:33 | PC.NURSE ---
Reviewed all discharge instructions with patient and patient family member including medications, last dose given and next dose due. Patient verbalizes understanding and agrees to discharge plan. Discharged to home in personal vehicle.
== END 2024-12-13 10:31 | disposition home or self-care (01) | DRG 308 ==
LOC: ANHED 17:00 → ANHIMU 18:26
PROVIDERS: Nurse Practitioner Gerontology; Admitting Provider Family Medicine; Emergency Provider Registered Nurse; PCP Internal Medicine; Visit Provider Family Medicine
DX: I47.29 Other ventricular tachycardia (principal); J18.9 Pneumonia, unspecified organism; I42.8 Other cardiomyopathies; I50.22 Chronic systolic (congestive) heart failure; T48.5X5A Adverse effect of other anti-common-cold drugs, initial encounter; J06.9 Acute upper respiratory infection, unspecified; E78.5 Hyperlipidemia, unspecified; E11.9 Type 2 diabetes mellitus without complications; I11.0 Hypertensive heart disease with heart failure; H40.9 Unspecified glaucoma; Z20.822 Contact with and (suspected) exposure to COVID-19; Z95.810 Presence of automatic (implantable) cardiac defibrillator; Z90.49 Acquired absence of other specified parts of digestive tract; Z90.710 Acquired absence of both cervix and uterus
CPT/HCPCS: 36415; 71045; 80048; 80053; 82948; 83605; 83735; 83880; 84100; 84484; 85025; 85027; 85610; 85652; 85730; 86140; 87040; 87637; 93005; 96365; 96367; 99285; A9270; G0378; J0456; J0612; J0696; J1650; J7030

== ENCOUNTER 2025-01-24 09:40 | Outpatient (CLI) | payer OTHER, SELFPAY ==
[2025-02-13 10:18] VITALS: BMI 36.3
--- NOTE | 2025-02-13 10:18 | WPDHOMESLEEP ---
Sleep Study - Home Unattended Date of Study: 01/24/25 Ordering Provider: JN Schwarz Interpreting Provider: Rachel Do DO [place] Sleep Study Type: Watch PAT Height: 1.68 m Weight: 102.058 kg Body Mass Index: 36.3 Neck Circumference (inches): 13.5 [place]: 0 Reason for Sleep Study Difficulty falling and staying asleep Sleep History The patient is a 59-year-old female who had a sleep study ordered by the pulmonary group for evaluation of sleep apnea. The patient admits to having difficulty falling and staying asleep. She denies snoring loudly. She denies interruptions in breathing while asleep. She denies choking or gasping at night. She denies having trouble breathing on her back. She denies morning headaches. She does have a dry or sore mouth/throat in the morning. She denies nocturnal heartburn. She denies nocturia. She does have difficulty returning to sleep if she wakes up throughout the night. She denies any hypnotic or sedative use. She denies feeling anxious about sleep. She denies feeling tired or sleepy during the day. She denies feeling tired in the morning. She denies having the urge to fall asleep during the day. She denies feeling drowsy while driving. She denies sleep paralysis, cataplexy, and hypnagogic/hypnopompic hallucinations. She denies clenching or grinding her teeth. She denies kicking or jerking her legs excessively. She denies having a restless feeling in her legs. She goes to bed at 11 p.m. on her days off. It takes her 30 minutes to fall asleep. She gets 5 hours of sleep per night. Her sleep is somewhat restorative on her days off. She denies taking any planned naps. She denies dream enactment behavior. She denies sleepwalking. She denies consuming any caffeinated beverages throughout the day. She denies tobacco, alcohol, and recreational drug use. She does not exercise on a regular basis. [facility] Past Medical History Medical History Colon cancer screening RUQ pain Glaucoma DM2 (diabetes mellitus, type 2) CHF (congestive heart failure), NYHA class I Hyperlipidemia Hypertension Surgical History Surgical History History of cardiac catheterization Years ago at [facility] and reportedly no significant coronary artery disease H/O dilation and curettage H/O: hysterectomy LUIS-BSO History of appendectomy exploratory laparotomy with appendectomy due to perforated appendicitis Family History Family History Father Acute myocardial infarction Diabetes mellitus Mother Acute myocardial infarction Diabetes mellitus Sibling Diabetes mellitus Social History Social History Social History: She lives with her significant other and has 1 son. She occasionally drinks alcohol such as a Brenda or a glass a wine. She works at the [employer] Lifelong nonsmoker but is exposed to secondhand smoke. Code status full code Smoking status: Never smoker Alcohol intake: never Drinks per week: 1 Substance use: never Substance use type: does not use Do You Feel Safe in your Home?: Yes Lack of Transportation: No Lack of Food: Never True Current Housing: I Have Housing Concerned About Future Housing: No Difficulty Paying Gas/Electric Bills: No Difficulty Paying for Meds: No Currently Unemployed: No Education: Associate Degree Difficulty w/ Childcare or Family Care: No Spiritual care concerns: No Medications Home Medications ?Medication ?Instructions ?Recorded ?Confirmed ?Type brimonidine 0.15 % eye drops 1 drp EACH EYE BID 11/23/22 12/20/24 History dorzolamide 2 % eye drops 1 drp EACH EYE DAILY 11/23/22 12/20/24 History sacubitril 49 mg-valsartan 51 mg 1 tablet PO BID 11/23/22 12/20/24 History tablet (Entresto) semaglutide 0.25 mg or 0.5 mg (2 1 mg subcut WEEKLY 11/23/22 12/20/24 History mg/1.5 mL) subcutaneous pen injector (Ozempic) aspirin 81 mg tablet,delayed 81 mg PO QAM #30 tabs 11/27/22 12/20/24 Rx release carvedilol 3.125 mg tablet (Coreg) 3.125 mg PO Q12HR #60 tabs 11/27/22 12/20/24 Rx furosemide 20 mg tablet 40 mg (2 x 20 mg) PO DAILY #30 tabs 11/27/22 12/20/24 Rx cholecalciferol (vitamin D3) 50 50 mcg PO DAILY 12/11/24 12/20/24 History mcg (2,000 unit) capsule dapagliflozin propanediol 10 mg 10 mg PO DAILY 12/11/24 12/20/24 History tablet (Farxiga) rosuvastatin 10 mg tablet 10 mg PO DAILY 12/11/24 12/20/24 History amiodarone 200 mg tablet (Pacerone) 200 mg PO BIDWM #60 tabs 12/13/24 12/20/24 Rx doxycycline hyclate 100 mg tablet 100 mg PO Q12HR #10 tabs 12/13/24 12/20/24 Rx magnesium oxide 400 mg (241.3 mg 400 mg PO DAILY #30 tabs 12/13/24 12/20/24 Rx magnesium) tablet potassium chloride 20 mEq 40 meq (2 x 20 mEq) PO BID #14 tabs 12/13/24 12/20/24 Rx tablet,extended release (K-Tab) Sleep Procedure The sleep study was completed using [employer] a technically adequate device with seven channels: peripheral arterial tone, actigraphy, body position, snore, respiratory movement, pulse oximetry, sleep staging, and heart rate. Prior to using the device, the patient received verbal and written instructions for its application and was provided with the help desk phone number for additional telephonic instruction with 24-hour availability of qualified personnel to answer questions. The study was scored using CMS guidelines. Sleep Architecture The total recording time is 6 hrs, 36 min. The total sleep time is 5 hrs, 44 min. Sleep latency is 16 minutes. REM latency is 36 minutes. The patient had 8 episodes of waking. Sleep architecture shows 17.6% deep sleep, 51.5% light sleep, and (as % Total Sleep Time) showed NREM (Light 51.5%; Deep 17.6%), and a 31.0% stage REM. The patient spent 90.4% of total sleep time in the supine position. Sleep efficiency was 86.87. Respiratory Analysis The overall AHI (pAHI 4%:) is 10.9. The overall AHI (pAHI 3%:) is 19.3. The central AHI is 0.2. The AHI was 10.4 in NREM and 39.0 in REM sleep. The AHI was 20.4 in Supine and 9.1 in Non-supine sleep. Percent of [place] respirations is 0.0. Oximetry Data The oxygen desaturation index (YANNA 4%:) is 10.0. The mean saturation is 92%, and the lowest saturation is 76%. Time spent with saturation < 88% is 2.3 minutes. Snoring Profile Snoring average intensity is 43 dB. The patient snored above 45 decibels for 52.3 minutes, 15.2% of sleep time. Cardiac Profile The average pulse rate is 65 beats per minutes. The lowest pulse rate is 53 bpm. The highest pulse rate reported is 87 bpm. Atrial fibrillation was not detected. Premature beats occur 1.2 per minute. Assessment and Plan Assessment and Plan (1) MT (obstructive sleep apnea): Code(s): G47.33 - Obstructive sleep apnea (adult) (pediatric) Status: Acute Assessment and Plan: The patient had an overall AHI of 10.9 with desaturation down to 76%. This is consistent with mild sleep apnea. Due to the patient's diabetes, she qualifies for treatment. Due to her extensive cardiac history, recommend that the patient have a CPAP titration with the use of a hypnotic to ensure we obtain enough sleep data find an optimal pressure setting. Data The data obtained during this sleep study is adequate for interpretation. Certification This sleep study has been reviewed by a board certified sleep medicine physician.
== END 2025-01-25 11:41 | disposition home or self-care (01) ==
PROVIDERS: PCP Internal Medicine; Visit Provider Physician Assistant
DX: G47.33 Obstructive sleep apnea (adult) (pediatric) (principal)
CPT/HCPCS: 95800

== ENCOUNTER 2025-05-11 08:40 | Outpatient (CLI) | payer OTHER, SELFPAY ==
--- NOTE | ~2025-05-11 | DEXA_ITS ---
Bone Density Report Name: [facility] Age: 59 Sex: Female Ethnicity: White Date of : 1965 Indication: postmenopausal; screening for osteoporosis; hysterectomy; Referring Provider: RICK, JUN Dumont Study: Bone densitometry was performed. Exam Date: May 11, 2025 Accession number: [id number] Bone Density: Region BMD T-score Z-score Classification AP Spine(L1-L4) 1.375 3.0 4.4 Normal Femoral Neck (Left) 0.997 1.3 2.6 Normal Total Hip (Left) 1.148 1.7 2.7 Normal Femoral Neck (Right) 1.142 2.6 3.9 Normal Total Hip (Right) 1.147 1.7 2.7 Normal Total Hip Mean 1.148 1.7 2.7 Normal World Health Organization criteria for BMD impression classify patients as: Normal (T-score at or above -1.0), Osteopenia (T-score between -1.0 and -2.5), or Osteoporosis (T-score at or below -2.5). 10-year Fracture Risk: FRAX not reported because: All T-scores for Spine Total, Hip Total, Femoral Neck at or above -1.0 Clinical Information Provided by Patient: Has used the following medications: Vitamin D Has the following medical conditions: Hysterectomy Patient maximum height was 67 Menopause Age: 39 No regular weight bearing exercise Does not regularly consume dairy products Drinks caffeinated beverages Onset of menses at age 11 Number of children 1 Missed period for more than 6 months in a row Impression: The patient has normal bone mass. Discussion: LOW RISK OF FRACTURE; BONE DENSITY IS WELL ABOVE THE MINIMUM DESIRABLE LEVEL AND ABOVE AVERAGE FOR AGE AND SEX AT ALL SKELETAL SITES TESTED. This person's bone density is above expected limits for age and sex. This is rarely clinically significant, but should be pursued if there are significant musculoskeletal complaints. The patient should follow a healthful lifestyle (good nutrition with adequate calcium and vitamin D, and appropriate weight-bearing exercise). Follow-Up: Consider repeating this study in 5 years or sooner if there is some new clinical indication. Reported by: TUAN on 05/11/2025 9:01:00 AM. Reviewed, dictated and finalized at location A.
== END 2025-05-11 08:41 | disposition home or self-care (01) ==
LOC: MICIMG 08:43
PROVIDERS: PCP Internal Medicine; Visit Provider Internal Medicine
DX: Z78.0 Asymptomatic menopausal state (principal)
CPT/HCPCS: 77080